=== PATIENT | female | born 1970 | race American Indian/Alaskan Native ===

== ENCOUNTER 2020-07-27 13:30 | Emergency (ER) | payer OTHER ==
[2020-07-27 13:46] VITALS: BP 107/65
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
== END 2020-07-27 16:26 | disposition home or self-care (01) ==
LOC: ED 13:30
DX: S16.1XXA Strain of muscle, fascia and tendon at neck level, initial encounter (principal); S29.012A Strain of muscle and tendon of back wall of thorax, initial encounter; S09.90XA Unspecified injury of head, initial encounter; F17.200 Nicotine dependence, unspecified, uncomplicated; Z98.890 Other specified postprocedural states; Z79.899 Other long term (current) drug therapy; V49.49XA Driver injured in collision with other motor vehicles in traffic accident, initial encounter; Y93.89 Activity, other specified; Y92.410 Unspecified street and highway as the place of occurrence of the external cause; Y99.8 Other external cause status
CPT/HCPCS: 99282

== ENCOUNTER 2020-10-14 23:46 | Emergency (ER) | payer OTHER ==
[2020-10-15] MEDS ORDERED: ASPIRIN 325 MG TAB PO ONE (00:08)
--- NOTE | 2020-10-15 00:19 | Event Note ---
ED Screening Note Date of service: 10/15/20 Time: 00:09 ED Screening Note: Patient is a 49 yo AA female with a h/o cervical cancer and lung cancer s/p partial lobectomy in 2019 and who continues to smoke cigarettes presents to the ED with c/o acute onset persistent anterior chest pain and dyspnea, worse with exertion for the last "couple of days". Patient states that her symptoms got worse in the last 24 hours with exertion, and describes the chest pain a "sharp and stabbing" intermittently. Patient denies dizziness, fever, chills, cough, abdominal pain, nausea, vomiting, headache, back pain, palpitations, diaphoresis, syncope and neck pain. This initial assessment/diagnostic orders/clinical plan/treatment(s) is/are subject to change based on patients health status, clinical progression and re- assessment by fellow clinical providers in the ED. Further treatment and workup at subsequent clinical providers discretion. Patient/guardian urged not to elope from the ED as their condition may be serious if not clinically assessed and managed. Initial orders include: CBC, CMP, CXR, EKG, BNP, PTT/PT/INR, ASA
--- NOTE | 2020-10-15 00:40 | XRay Report ---
CHEST 1 VIEW 10/14/2020 11:27 PM INDICATION / CLINICAL INFORMATION: Chest pain. Shortness of breath. COMPARISON: 03/22/15. FINDINGS: SUPPORT DEVICES: There is a right jugular Port-A-Cath with the tip overlying the distal SVC. HEART / MEDIASTINUM: The heart size and pulmonary vasculature are normal. The aorta is normal in natasha ernie. There is soft tissue prominence in the right paratracheal/azygous vein region, new since the bora or exam. LUNGS / PLEURA: There is minimal subsegmental atelectasis/scarring in the right lower lung. No pleura l effusion. No pneumothorax. ADDITIONAL FINDINGS: No significant additional findings. IMPRESSION: 1. New right paratracheal/azygous vein soft tissue prominence. Nonemergent CT of the chest with intra venous contrast may be helpful in further evaluation. 2. No acute pulmonary disease. Signer Name: Landen Abel MD Signed: 10/15/2020 12:35 AM Workstation Name: [id number]
[2020-10-15 00:52] LABS: Basophils % (Auto) 0.9 % (0.0-1.8); Eosinophils # (Auto) 0.1 K/mm3 (0.0-0.4); Eosinophils % (Auto) 1.8 % (0.0-4.3); Hematocrit 32.7 % (30.3-42.9); Hemoglobin 11.1 gm/dl (10.1-14.3); Lymphocytes # (Auto) 2.5 K/mm3 (1.2-5.4); Lymphocytes % (Auto) 45.2 % (13.4-35.0); Mean Corpuscular HGB Conc 34 % (30-34); Mean Corpuscular Volume 103 fl (79-97); Monocytes # (Auto) 0.3 K/mm3 (0.0-0.8); Monocytes % (Auto) 6.1 % (0.0-7.3); Platelet Count 300 K/mm3 (140-440); Red Blood Count 3.17 M/mm3 (3.65-5.03); Red Cell Distribution Width 13.9 % (13.2-15.2)
[2020-10-15 01:09] LABS: INR 0.98 (0.87-1.13); Partial Thromboplastin Time 28.8 Sec. (24.2-36.6)
[2020-10-15 01:16] LABS: Alanine Aminotransferase 10 units/L (7-56); Albumin 4.2 g/dL (3.9-5); BUN/Creatinine Ratio 5; Blood Urea Nitrogen 3 mg/dL (7-17); Calcium 9.3 mg/dL (8.4-10.2); Hemolysis Index 3
[2020-10-15 08:38] VITALS: BP 122/92
[2020-10-15] MEDS ORDERED: ALUM-MAG HYDROXIDE-SIMETHICONE 200-200-20MG/5ML ORAL LIQD 30 ML PO ONE (10:11)
--- NOTE | 2020-10-15 10:17 | Emergency Department Report ---
ED Chest Pain HPI - General Chief Complaint: Chest Pain Stated Complaint: CHEST PAIN/SOB Time Seen by Provider: 10/15/20 10:10 Source: patient Mode of arrival: Ambulatory Limitations: No Limitations - History of Present Illness Initial Comments: This is a 49-year-old female reports to the emergency room complaining of midsternal chest pain radiating under her right breast x3 days. She denies coughing no shortness of breath no fever no chills, no leg swelling no recent travels no recent surgical procedures. Her past medical history is of cervical cancer and lung cancer diagnosed and treated in 2019 status post chemo radiation and lobectomy. She is a current cigarette smoker patient is in no acute distress MD Complaint: chest pain -: days(s) (3) Pain Location: other (Midsternal chest pain radiating under her right breast) Severity scale (0 -10): 7 Quality: sharp Consistency: intermittent Improves With: other (Luisa anthony) Worsens With: nothing re: denies: nausea, vomting, diaphoresis, dyspnea, sense of impending doom Other Symptoms: denies: cough, fever, syncope Treatments Prior to Arrival: none - Related Data Previous Rx's Medication Instructions Recorded Last Taken Type Ketorolac [Toradol] 10 mg PO Q6H PRN #20 tablet 07/27/20 Unknown Rx methOCARBAMOL [Robaxin TAB] 750 mg PO Q8H PRN #30 tablet 07/27/20 Unknown Rx Allergies Allergy/AdvReac Type Severity Reaction Status Date / Time No Known Allergies Allergy Verified 07/27/20 13:43 Heart Score - HEART Score History: Slightly suspicious EKG: Normal Age: 45-65 Risk factors: No known risk factors Troponin: 1-3x normal limit HEART Score: 2 - EKG Read Time Time EKG Completed: 00:10 EKG Read Time: 00:15 ED Review of Systems ROS: Stated complaint: CHEST PAIN/SOB Other details as noted in HPI Comment: All other systems reviewed and negative Constitutional: denies: chills, fever, weakness ENT: denies: ear pain, throat pain, dental pain Respiratory: denies: cough, shortness of breath, SOB with exertion, wheezing Cardiovascular: chest pain. denies: palpitations, dyspnea on exertion, orthopnea, edema, syncope, paroxysmal nocturnal dyspnea Endocrine: no symptoms reported Gastrointestinal: denies: abdominal pain, nausea, vomiting, diarrhea, con stipation, hematemesis Genitourinary: denies: dysuria, hematuria Musculoskeletal: denies: back pain, joint swelling, arthralgia Skin: denies: rash Neurological: denies: headache, weakness, numbness, paresthesias, confusion Psychiatric: denies: anxiety, depression Hematological/Lymphatic: denies: easy bleeding, easy bruising ED Past Medical Hx - Past Medical History Hx of Cancer: Yes (cervical and RML lung) - Surgical History Additional Surgical History: tubal, right lower lobectomy, hysterectomy - Social History Smoking Status: Current Every Day Smoker Substance Use Type: Alcohol - Medications Home Medications: Home Medications Medication Instructions Recorded Confirmed Last Taken Type Ketorolac [Toradol] 10 mg PO Q6H PRN #20 tablet 07/27/20 Unknown Rx methOCARBAMOL [Robaxin TAB] 750 mg PO Q8H PRN #30 tablet 07/27/20 Unknown Rx ED Physical Exam - General Limitations: No Limitations General appearance: alert, in no apparent distress - Head Head exam: Present: atraumatic - Eye Eye exam: Present: normal appearance - ENT ENT exam: Present: normal exam - Neck Neck exam: Present: normal inspection - Respiratory Respiratory exam: Present: decreased breath sounds (At the bases bilaterally). Absent: respiratory distress, wheezes, rales, rhonchi - Cardiovascular Cardiovascular Exam: Present: regular rate, normal heart sounds - GI/Abdominal GI/Abdominal exam: Present: soft - Extremities Exam Extremities exam: Present: normal inspection - Back Exam Back exam: Present: normal inspection - Neurological Exam Neurological exam: Present: alert, oriented X3 - Psychiatric Psychiatric exam: Present: normal affect - Skin Skin exam: Present: warm, dry, intact ED Course Vital Signs 10/15/20 10/15/20 00:02 08:37 Temperature 98.0 F 98.2 F Pulse Rate 107 H 100 H Respiratory 18 20 Rate Blood Pressure 105/80 122/92 [Left] O2 Sat by Pulse 99 100 Oximetry - Reevaluation(s) Reevaluation #1: 10/15/20 10:19 At 10 AM I examined patient she is in no acute distress she states that the midsternal pain that she has feels like gas pain. She reports her pain is has decreased but is now a 7/10. She denies any shortness of breath. All findings discussed with the patient. Patient continues to smoke cigarette and has just returned from outside where she was smoking 10/15/20 10:20 DONALD score - Donald Score Age > 65: (0) No Aspirin use within the Past 7 Days: (0) No 3 or more CAD Risk Factors: (0) No 2 or more Angina events in past 24 hrs: (0) No Known CAD with more than 50% Stenosis: (0) No Elevated Cardiac Markers: (0) No ST Deviation Greater than 0.5mm: (0) No DONALD Score: 0 ED Medical Decision Making - Lab Data Result diagrams: 10/15/20 00:16 10/15/20 00:16 - EKG Data Rate: normal, tachycardia (102 probable left atrial enlargement) - EKG Data Interpretation: no acute changes - Radiology Data Radiology results: report reviewed CHEST 1 VIEW 10/14/2020 11:27 PM INDICATION / CLINICAL INFORMATION: Chest pain. Shortness of breath. COMPARISON: 03/22/15. FINDINGS: SUPPORT DEVICES: There is a right jugular Port-A-Cath with the tip overlying the distal SVC. HEART / MEDIASTINUM: The heart size and pulmonary vasculature are normal. The aorta is normal in caliber. There is soft tissue prominence in the right paratracheal/azygous vein region, new since the prior exam. LUNGS / PLEURA: There is minimal subsegmental atelectasis/scarring in the right lower lung. No pleural effusion. No pneumothorax. ADDITIONAL FINDINGS: No significant additional findings. IMPRESSION: 1. New right paratracheal/azygous vein soft tissue prominence. Nonemergent CT of the chest with intravenous contrast may be helpful in further evaluation. 2. No acute pulmonary disease. - Medical Decision Making 49 yo female presents to ER with 3 day complaint of midsternal chest pain radiating under the right chest. She denies SOB, fever chills. Low suspicion for PE no recent long distance travels, no unilateral swelling, no recent surgical procedures or lengthy immobilization. Chest x-ray with no acute findings. Troponin x2 is negative . she has hx of cervical and lung cancer treated 3 years ago. Heart score of 2 per hospital policy chest pain referral form faxed to [facility] . Pt is well appearing in no distress. All findings reviewed with Dr. Quigley. Dr Quigley reviewed chart. He agrees with plan to discharge home no further imaging needed and to refer pt to [facility]. - Differential Diagnosis Chest pain, Critical care attestation.: If time is entered above; I have spent that time in minutes in the direct care of this critically ill patient, excluding procedure time. ED Disposition Clinical Impression: Atypical chest pain Disposition: DC-01 TO HOME OR SELFCARE Is pt being admited?: No Does the pt Need Aspirin: No Condition: Stable Instructions: Nonspecific Chest Pain, Adult Additional Instructions: Follow-up with your doctor in 3 to 5 days. Return to the emergency room for any worsening chest pain shortness of breath cough fever Referrals: PRIMARY CARE, [Primary Care Provider] - 3-5 Days Forms: Work/School Release Form(ED) Time of Disposition: 10:22
--- NOTE | 2020-10-17 10:31 | Electrocardiograph Report ---
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
== END 2020-10-15 10:36 | disposition home or self-care (01) ==
LOC: ED 23:46
DX: R07.89 Other chest pain (principal); F17.200 Nicotine dependence, unspecified, uncomplicated; Z90.710 Acquired absence of both cervix and uterus; Z79.899 Other long term (current) drug therapy
CPT/HCPCS: 36415; 71045; 80053; 83880; 84484; 85025; 85610; 85730; 93005; 99283

== ENCOUNTER 2021-01-15 01:37 | Inpatient (IN) | payer OTHER ==
[2021-01-15] MEDS ORDERED: SODIUM CHLORIDE 0.9% 1000 ML 1,000 ML IV ONE (02:23)
[2021-01-15 02:53] LABS: Basophils % (Auto) 0.5 % (0.0-1.8); Eosinophils % (Auto) 0.2 % (0.0-4.3); Hematocrit 35.4 % (30.3-42.9); Hemoglobin 12.1 gm/dl (10.1-14.3); Lymphocytes # (Auto) 1.4 K/mm3 (1.2-5.4); Lymphocytes % (Auto) 27.3 % (13.4-35.0); Mean Corpuscular HGB Conc 34 % (30-34); Mean Corpuscular Volume 95 fl (79-97); Monocytes # (Auto) 0.4 K/mm3 (0.0-0.8); Monocytes % (Auto) 7.1 % (0.0-7.3); Platelet Count 232 K/mm3 (140-440); Red Blood Count 3.73 M/mm3 (3.65-5.03); Red Cell Distribution Width 13.2 % (13.2-15.2)
[2021-01-15 03:02] LABS: INR 1.26 (0.87-1.13); Partial Thromboplastin Time 26.4 Sec. (24.2-36.6)
[2021-01-15 03:10] LABS: Alanine Aminotransferase 42 units/L (7-56); Albumin 3.9 g/dL (3.9-5); Bilirubin,Direct 0.6 mg/dL (0-0.2); Blood Urea Nitrogen 11 mg/dL (7-17); Calcium 9.2 mg/dL (8.4-10.2); Hemolysis Index 1
[2021-01-15] MEDS ORDERED: MAGNESIUM SULFATE 2 GM/50 ML BAG IV ONE ×2 (03:19)
--- NOTE | 2021-01-15 03:30 | Emergency Department Report ---
HPI - General Chief Complaint: Nausea/Vomiting/Diarrhea Time Seen by Provider: 01/15/21 02:21 - HPI HPI: 50-year-old female with history of cervical and lung cancer in the past currently in remission is brought in by EMS complaining of worsening generalized weakness over the past week and persistent nausea/vomiting for the past 2 months. According to the EMS report, the patient's blood pressure was initially in the 90s over 70s and the patient was noted to be tachycardic in the 110s. She was given an IV fluid bolus with improvement in her blood pressure. The patient states that she has been having approximately 4-5 episodes of vomiting per day for the past 2 months. She states she has been taking Zofran but it is no longer working for her. In addition, she has been experiencing worsening abdominal pain mainly centered in the epigastrium. he is constipated and does not remember the last time she had a bowel movement. Although she has felt tired and weak the entire time, over the last week the generalized weakness got much worse to the point where she was barely able to perform simple activities. Because of this her family called 911 today. She denies any fever/chills, headache, vision change, neck pain, back pain, chest pain, shortness of breath, focal weakness, sensory changes, vertigo, dysuria, hematemesis, cough, or any other complaints. She is not vaccinated against COVID-19. ED Past Medical Hx - Past Medical History Previous Medical History?: Yes Additional medical history: Cervical and Lung cancer in remission - Surgical History Additional Surgical History: tubal, right lower lobectomy, hysterectomy - Social History Smoking Status: Unknown if ever smoked - Medications Home Medications: Home Medications Medication Instructions Recorded Confirmed Last Taken Type Ketorolac [Toradol] 10 mg PO Q6H PRN #20 tablet 07/27/20 01/15/21 Unknown Rx methOCARBAMOL [Robaxin TAB] 750 mg PO Q8H PRN #30 tablet 07/27/20 01/15/21 Unknown Rx ED Review of Systems ROS: Stated complaint: NAUSEA,VOMITING,HYPOTENTION Other details as noted in HPI Constitutional: weakness. denies: chills, fever Eyes: denies: eye pain, vision change ENT: denies: throat pain, congestion Respiratory: denies: cough, shortness of breath Cardiovascular: denies: chest pain, palpitations, edema, syncope Gastrointestinal: abdominal pain, nausea, vomiting, constipation. denies: diarrhea Genitourinary: denies: dysuria, frequency Musculoskeletal: denies: back pain, myalgia Skin: denies: rash, pruritus Neurological: denies: headache, weakness, numbness, confusion Hematological/Lymphatic: denies: easy bleeding Physical Exam - Physical Exam Vital Signs: Vital Signs 01/15/21 01:50 Temperature 98.4 F Pulse Rate 104 H Respiratory 18 Rate Blood Pressure 98/67 O2 Sat by Pulse 99 Oximetry Physical Exam: GENERAL: Frail appearing female who appears older than stated age. In no acute distress HEAD: Normocephalic. No obvious signs of trauma. ENT: Dry mucous membranes. EYES: Extraocular movements are intact. Pupils are equal round and reactive to light bilaterally NECK: Supple. Full ROM is intact. Trachea is midline. LUNGS: Nonlabored breathing. Equal chest rise bilaterally. Coarse breath sounds with scattered rhonchi but no rales or wheezes. CARDIOVASCULAR: Tachycardic but with regular rhythm. No murmurs or rubs. VASCULAR: 2+ peripheral pulses. Trace edema ABDOMEN: Abdomen is soft and nondistended. There is diffuse abdominal tenderness most significantly in the epigastrium with voluntary guarding but no rebound. SKIN: Skin is warm and dry NEURO: Patient is awake, alert, and oriented. polygraph technician II-XII grossly intact. No focal deficits. Normal motor and sensory exam throughout. Normal speech. MUSCULOSKELETAL: No obvious deformities. No significant tenderness. Normal ROM throughout. BACK/SPINE: No midline tenderness or step-offs of the C/T/L spine. Bilateral CVA tenderness ED Course Vital Signs 01/15/21 01:50 Temperature 98.4 F Pulse Rate 104 H Respiratory 18 Rate Blood Pressure 98/67 O2 Sat by Pulse 99 Oximetry ED Medical Decision Making - Lab Data Result diagrams: 01/16/21 02:12 01/16/21 02:12 Lab Results 01/15/21 01/15/21 01/15/21 Range/Units 02:32 02:32 02:32 WBC 5.1 (4.5-11.0) K/mm3 RBC 3.73 (3.65-5.03) M/mm3 Hgb 12.1 (10.1-14.3) gm/dl Hct 35.4 (30.3-42.9) % MCV 95 (79-97) fl MCH 32 (28-32) pg MCHC 34 (30-34) % RDW 13.2 (13.2-15.2) % Plt Count 232 (140-440) K/mm3 Lymph % (Auto) 27.3 (13.4-35.0) % Coleman % (Auto) 7.1 (0.0-7.3) % Eos % (Auto) 0.2 (0.0-4.3) % Baso % (Auto) 0.5 (0.0-1.8) % Lymph # (Auto) 1.4 (1.2-5.4) K/mm3 Coleman # (Auto) 0.4 (0.0-0.8) K/mm3 Eos # (Auto) 0.0 (0.0-0.4) K/mm3 Baso # (Auto) 0.0 (0.0-0.1) K/mm3 Seg Neutrophils % 64.9 (40.0-70.0) % Seg Neutrophils # 3.3 (1.8-7.7) K/mm3 PT 16.4 H (12.2-14.9) Sec. INR 1.26 H (0.87-1.13) APTT 26.4 (24.2-36.6) Sec. D-Dimer (0-234) ng/mlDDU Sodium 132 L (137-145) mmol/L Potassium 2.3 L* (3.6-5.0) mmol/L Chloride 85.5 L (98-107) mmol/L Carbon Dioxide 31 H (22-30) mmol/L Anion Gap 18 mmol/L BUN 11 (7-17) mg/dL Creatinine 0.5 L (0.6-1.2) mg/dL Estimated GFR > 60 ml/min BUN/Creatinine Ratio 22 % Glucose 132 H (65-100) mg/dL Lactic Acid (0.7-2.0) mmol/L Calcium 9.2 (8.4-10.2) mg/dL Phosphorus (2.5-4.5) mg/dL Magnesium (1.7-2.3) mg/dL Ferritin (10.0-200.0) ng/mL Total Bilirubin 1.90 H (0.1-1.2) mg/dL Direct Bilirubin 0.6 H (0-0.2) mg/dL Indirect Bilirubin 1.3 mg/dL AST 26 (5-40) units/L ALT 42 (7-56) units/L Alkaline Phosphatase 80 (35-129) units/L Lactate Dehydrogenase (91-180) units/L Troponin T (0.00-0.029) ng/mL C-Reactive Protein (0.00-1.30) mg/dL Total Protein 6.9 (6.3-8.2) g/dL Albumin 3.9 (3.9-5) g/dL Albumin/Globulin Ratio 1.3 % Lipase 66 H (13-60) units/L 01/15/21 01/15/21 01/15/21 Range/Units 02:32 02:32 02:32 WBC (4.5-11.0) K/mm3 RBC (3.65-5.03) M/mm3 Hgb (10.1-14.3) gm/dl Hct (30.3-42.9) % MCV (79-97) fl MCH (28-32) pg MCHC (30-34) % RDW (13.2-15.2) % Plt Count (140-440) K/mm3 Lymph % (Auto) (13.4-35.0) % Coleman % (Auto) (0.0-7.3) % Eos % (Auto) (0.0-4.3) % Baso % (Auto) (0.0-1.8) % Lymph # (Auto) (1.2-5.4) K/mm3 Coleman # (Auto) (0.0-0.8) K/mm3 Eos # (Auto) (0.0-0.4) K/mm3 Baso # (Auto) (0.0-0.1) K/mm3 Seg Neutrophils % (40.0-70.0) % Seg Neutrophils # (1.8-7.7) K/mm3 PT (12.2-14.9) Sec. INR (0.87-1.13) APTT (24.2-36.6) Sec. D-Dimer (0-234) ng/mlDDU Sodium (137-145) mmol/L Potassium (3.6-5.0) mmol/L Chloride (98-107) mmol/L Carbon Dioxide (22-30) mmol/L Anion Gap mmol/L BUN (7-17) mg/dL Creatinine (0.6-1.2) mg/dL Estimated GFR ml/min BUN/Creatinine Ratio % Glucose (65-100) mg/dL Lactic Acid 1.80 (0.7-2.0) mmol/L Calcium (8.4-10.2) mg/dL Phosphorus 2.30 L (2.5-4.5) mg/dL Magnesium 1.80 (1.7-2.3) mg/dL Ferritin (10.0-200.0) ng/mL Total Bilirubin (0.1-1.2) mg/dL Direct Bilirubin (0-0.2) mg/dL Indirect Bilirubin mg/dL AST (5-40) units/L ALT (7-56) units/L Alkaline Phosphatase (35-129) units/L Lactate Dehydrogenase (91-180) units/L Troponin T < 0.010 (0.00-0.029) ng/mL C-Reactive Protein (0.00-1.30) mg/dL Total Protein (6.3-8.2) g/dL Albumin (3.9-5) g/dL Albumin/Globulin Ratio % Lipase (13-60) units/L 01/15/21 01/15/21 01/15/21 Range/Units 04:51 04:51 04:51 WBC (4.5-11.0) K/mm3 RBC (3.65-5.03) M/mm3 Hgb (10.1-14.3) gm/dl Hct (30.3-42.9) % MCV (79-97) fl MCH (28-32) pg MCHC (30-34) % RDW (13.2-15.2) % Plt Count (140-440) K/mm3 Lymph % (Auto) (13.4-35.0) % Coleman % (Auto) (0.0-7.3) % Eos % (Auto) (0.0-4.3) % Baso % (Auto) (0.0-1.8) % Lymph # (Auto) (1.2-5.4) K/mm3 Coleman # (Auto) (0.0-0.8) K/mm3 Eos # (Auto) (0.0-0.4) K/mm3 Baso # (Auto) (0.0-0.1) K/mm3 Seg Neutrophils % (40.0-70.0) % Seg Neutrophils # (1.8-7.7) K/mm3 PT (12.2-14.9) Sec. INR (0.87-1.13) APTT (24.2-36.6) Sec. D-Dimer 1101.34 H (0-234) ng/mlDDU Sodium 129 L (137-145) mmol/L Potassium 2.6 L* (3.6-5.0) mmol/L Chloride 88.7 L (98-107) mmol/L Carbon Dioxide 27 (22-30) mmol/L Anion Gap 16 mmol/L BUN 9 (7-17) mg/dL Creatinine 0.5 L (0.6-1.2) mg/dL Estimated GFR > 60 ml/min BUN/Creatinine Ratio 18 % Glucose 100 98 (65-100) mg/dL Lactic Acid (0.7-2.0) mmol/L Calcium 7.8 L D (8.4-10.2) mg/dL Phosphorus (2.5-4.5) mg/dL Magnesium (1.7-2.3) mg/dL Ferritin (10.0-200.0) ng/mL Total Bilirubin 1.50 H (0.1-1.2) mg/dL Direct Bilirubin (0-0.2) mg/dL Indirect Bilirubin mg/dL AST 20 (5-40) units/L ALT 36 (7-56) units/L Alkaline Phosphatase 69 (35-129) units/L Lactate Dehydrogenase 141 (91-180) units/L Troponin T (0.00-0.029) ng/mL C-Reactive Protein 0.30 (0.00-1.30) mg/dL Total Protein 5.9 L (6.3-8.2) g/dL Albumin 3.1 L (3.9-5) g/dL Albumin/Globulin Ratio 1.1 % Lipase (13-60) units/L 07/25/ Range/Units 04:51 WBC (4.5-11.0) K/mm3 RBC (3.65-5.03) M/mm3 Hgb (10.1-14.3) gm/dl Hct (30.3-42.9) % MCV (79-97) fl MCH (28-32) pg MCHC (30-34) % RDW (13.2-15.2) % Plt Count (140-440) K/mm3 Lymph % (Auto) (13.4-35.0) % Coleman % (Auto) (0.0-7.3) % Eos % (Auto) (0.0-4.3) % Baso % (Auto) (0.0-1.8) % Lymph # (Auto) (1.2-5.4) K/mm3 Coleman # (Auto) (0.0-0.8) K/mm3 Eos # (Auto) (0.0-0.4) K/mm3 Baso # (Auto) (0.0-0.1) K/mm3 Seg Neutrophils % (40.0-70.0) % Seg Neutrophils # (1.8-7.7) K/mm3 PT (12.2-14.9) Sec. INR (0.87-1.13) APTT (24.2-36.6) Sec. D-Dimer (0-234) ng/mlDDU Sodium (137-145) mmol/L Potassium (3.6-5.0) mmol/L Chloride (98-107) mmol/L Carbon Dioxide (22-30) mmol/L Anion Gap mmol/L BUN (7-17) mg/dL Creatinine (0.6-1.2) mg/dL Estimated GFR ml/min BUN/Creatinine Ratio % Glucose (65-100) mg/dL Lactic Acid (0.7-2.0) mmol/L Calcium (8.4-10.2) mg/dL Phosphorus (2.5-4.5) mg/dL Magnesium (1.7-2.3) mg/dL Ferritin 630.5 H (10.0-200.0) ng/mL Total Bilirubin (0.1-1.2) mg/dL Direct Bilirubin (0-0.2) mg/dL Indirect Bilirubin mg/dL AST (5-40) units/L ALT (7-56) units/L Alkaline Phosphatase (35-129) units/L Lactate Dehydrogenase (91-180) units/L Troponin T (0.00-0.029) ng/mL C-Reactive Protein (0.00-1.30) mg/dL Total Protein (6.3-8.2) g/dL Albumin (3.9-5) g/dL Albumin/Globulin Ratio % Lipase (13-60) units/L - EKG Data -: EKG Interpreted by Ok - EKG Data 01/15/21 05:02 EKG #1 obtained at 3:00 AM: Sinus tachycardia. Normal axis. Prolonged QT interval with QTC of 518. Otherwise normal intervals. No ectopy. Nonspecific T wave inversions. Septal Q waves. No significant ST segment abnormalities. EKG #2 obtained at 4:57 AM: Normal sinus rhythm. Normal axis. Prolonged QT interval with QTC of 536. Otherwise normal intervals. No ectopy. Nonspecific T wave inversions. Septal Q waves. No significant ST segment abnormalities. 01/15/21 05:07 - Radiology Data CHEST 1 VIEW 01/15/2021 4:42 AM INDICATION / CLINICAL INFORMATION: weakness. COMPARISON: One view of the chest from 10/15/2020 FINDINGS: SUPPORT DEVICES: A right internal jugular vein Port-A-Cath terminates over the cavoatrial junction. HEART / MEDIASTINUM: No significant abnormality. LUNGS / PLEURA: There is a right upper lobe mass measuring 5.1 x 4.8 cm. Otherwise clear lungs. No significant pleural effusion. No pneumothorax. ADDITIONAL FINDINGS: No significant additional findings. IMPRESSION: 1. No acute abnormality of the chest. 2. Additional findings as above. Signer Name: Duran Garduno MD Signed: 01/15/2021 4:48 AM Workstation Name: [id number] ULTRASOUND ABDOMEN, LIMITED (RIGHT UPPER QUADRANT) INDICATION: RUQ+ epigastric tenderness. COMPARISON: None available. FINDINGS: Pancreas: Visualized portion shows no significant abnormality. Liver: No significant abnormality. Gallbladder: Numerous stones are present resulting in a wall echo shadow complex, limiting evaluation of the gallbladder. Sonographic Velazquez's sign: Not performed. Bile ducts: No significant abnormality. Common Bile Duct measures 1.1 mm. Free fluid: None. Additional Findings: None. IMPRESSION: Cholelithiasis without sonographic evidence of acute cholecystitis. Signer Name: Duran Garduno MD Signed: 01/15/2021 3:37 AM Workstation Name: [id number] CT ABDOMEN AND PELVIS WITH CONTRAST INDICATION / CLINICAL INFORMATION: Bilateral upper abdominal tenderness. TECHNIQUE: Axial CT images were obtained through the abdomen and pelvis after 100 cc Omnipaque [address] scans at this location are performed using CT dose reduction for ALARA by means of automated exposure control. COMPARISON: None available. FINDINGS: LOWER CHEST: No significant abnormality. LIVER: Focal fatty infiltration is seen along the falciform ligament. No other significant abnormalities. GALLBLADDER: There is cholelithiasis without evidence of acute cholecystitis. BILE DUCTS: No significant abnormality. PANCREAS: No significant abnormality. SPLEEN: No significant abnormality. ADRENALS: No significant abnormality. RIGHT KIDNEY / URETER: No significant abnormality. LEFT KIDNEY / URETER: No significant abnormality. STOMACH / SMALL BOWEL: No significant abnormality. COLON: No significant abnormality. APPENDIX: No significant abnormality. PERITONEUM: No free fluid. No free air. No fluid collection. LYMPH NODES: No significant adenopathy. AORTA / ARTERIES: The aorta is normal in caliber with mild atherosclerosis. No other significant abnormalities. IVC / VEINS: No significant abnormality. URINARY BLADDER: No significant abnormality. REPRODUCTIVE ORGANS: Uterus is absent. No significant adnexal abnormality. ADDITIONAL FINDINGS: No ne. SKELETAL SYSTEM: No significant abnormality. IMPRESSION: 1. No acute findings. 2. Cholelithiasis without evidence of acute cholecystitis. Signer Name: Duran Garduno MD Signed: 01/15/2021 4:03 AM Workstation Name: [id number] - Medical Decision Making 50-year-old female with history of cervical and lung cancer in remission presenting with 2 months of nausea/vomiting and now with approximately a week of worsening generalized weakness and hypotension first noted today. The patient has been taking Zofran but this has not provided significant relief and she has continued to vomit. Although her initial blood pressure was in the 90s over 70s for EMS, her blood pressure upon arrival is in the 100s over 60s. She remains tachycardic in the 110s. On physical examination, she has very dry mucous membranes and diffuse abdominal tenderness with voluntary guarding but no rebound. She also has bilateral CVA tenderness. She is A&O x4. She has a nonfocal neurologic exam. Lung auscultation reveals coarse breath sounds with scattered rhonchi without any appreciated rales. We will perform very broad work-up with a full set of labs, EKG, chest x-ray, blood/urine cultures, lactate, right upper quadrant ultrasound to assess for evidence of cholelithiasis/cholecystitis, and CT of the abdomen pelvis to assess for evidence of colitis, mass, obstruction, infection, or other intra-abdominal catastrophe. We will give 1 L of IV fluids and monitor very closely.\ At 3:10 AM, the patient's EKG reveals a prolonged QT interval with a QTC of 518. I suspect that this is related to her ongoing and frequent use of Zofran as well as electrolyte abnormalities. Her labs are still pending but will give 2 g of magnesium sulfate and repeat her EKG to assess for changes to her QTC. At 4:05 AM, the patient's labs have resulted and reveal a critically low potassium of 2.3. She has no significant leukocytosis or anemia. Sodium is 132, bicarb is 31, creatinine is 0.5 and BUN is 11. Lactate is within normal limits. Magnesium is normal at 1.8. T bili is slightly elevated at 1.9 with T bili of 0.6. Lipase is slightly elevated at 66. Lactate is within normal li mits. We will give 40 mEq of oral potassium and 40 mEq of IV potassium over 4 hours. The patient will be kept on a senior java developer at all times. Will avoid antiemetics or any other QT prolonging agents at this time. On repeat assessment at 4:28 AM, the patient reports that she feels slightly bet ter after receiving IV fluids. Her blood pressure has stabilized, but she remains tachycardic in the 100s to 110s. Given her persistent tachycardia despite IV fluids, I will order the COVID-19 order set which includes a D-dimer and add on a CTA of the chest to be completed with her CT of the abdomen. We will order an additional 1 L of LR After ordering the CTA of the chest, the radiology director informed me that he had just completed the patient's contrasted CT of the abdomen when this order was placed and therefore CT angiogram cannot be performed at this time. Right upper quadrant ultrasound reveals cholelithiasis without evidence of cholecystitis. Repeat EKG at 4:57 AM reveals no changes but with persistent QT prolongation and QTC of 530. We will consult cardiology for further recommendations. CT of the abdomen and pelvis reveals no acute abnormalities. There is evidence of cholelithiasis without evidence of cholecystitis. D-dimer is elevated at 1100. However, given that the patient has already received a contrasted study of the abdomen, she cannot receive a CTA of the chest at this time. On repeat assessment again at 5:30 AM, the patient's heart rate has improved slightly to the high 90s/low 100s. I explained to the patient that she has several electrolyte abnormalities and EKG changes which require admission to the hospital for further work-up and management. She expressed understanding and agreement with this plan of care. At 5:41 AM I spoke with Dr. Tafoya of cardiology regarding the case. He agrees with my management with magnesium, potassium repletion, and recommends avoidance of any QT prolonging agents and says that he will give further inpatient recommendations. At 6 AM I spoke with Dr. Deleon, the on-call hospitalist regarding the case. He accepts the patient for admission and will assume care. He understands that urinalysis/urine culture are still pending and that D-dimer is elevated but we are unable to perform CTA of the chest at this time. Shortly after speaking to the hospitalist, I reviewed the patient's chest x-ray, and although the impression says that there are no acute abnormalities, I now see that there is a finding of a right upper lobe mass of approximately 5.1 x 4.8 cm. Unclear whether this represents a new mass or the patient's prior lung cancer. I spoke to the hospitalist and updated him about this finding and he says he will follow it up. Critical Care Time: Yes Critical care time in (mins) excluding proc time.: 90 Critical care attestation.: If time is entered above; I have spent that time in minutes in the direct care of this critically ill patient, excluding procedure time. Critical care time was spent in the evaluation, assessment, work-up, and management of critical hypokalemia and prolonged QTC requiring IV magnesium and IV potassium as well as hypotension requiring IV fluids, interpretation of EKGs, consultation with specialist, and multiple reassessments and reevaluations. ED Disposition Clinical Impression: Generalized weakness, Hypokalemia, Prolonged Q-T interval on ECG, Dehydration, Mass of upper lobe of right lung, Failure to thrive in adult Nausea and vomiting Qualifiers: Vomiting Intractability: unspecified Hypotension Qualifiers: Hypotension type: unspecified hypotension type Qualified Code(s): I95.9 - Hypotension, unspecified Disposition: DC-09 OP ADMIT IP TO THIS HOSP Is pt being admited?: Yes Condition: Serious
[2021-01-15 03:37] LABS: BUN/Creatinine Ratio 22
[2021-01-15] MEDS ORDERED: POTASSIUM CHLORIDE ER 20 MEQ TAB PO ONE (04:03)
[2021-01-15] MEDS ORDERED: LACTATED RINGERS 1,000 ML IV ONE (04:32)
--- NOTE | 2021-01-15 04:41 | Ultrasound Report ---
ULTRASOUND ABDOMEN, LIMITED (RIGHT UPPER QUADRANT) INDICATION: RUQ+ epigastric tenderness. COMPARISON: None available. FINDINGS: Pancreas: Visualized portion shows no significant abnormality. Liver: No significant abnormality. Gallbladder: Numerous stones are present resulting in a wall echo shadow complex, limiting evaluation of the gallbladder. Sonographic Velazquez's sign: Not performed. Bile ducts: No significant abnormality. Common Bile Duct measures 1.1 mm. Free fluid: None. Additional Findings: None. IMPRESSION: Cholelithiasis without sonographic evidence of acute cholecystitis. Signer Name: Duran Garduno MD Signed: 01/15/2021 4:37 AM Workstation Name: [id number]
[2021-01-15] MEDS: POTASSIUM CHLORIDE 10 MEQ 10 MEQ/100 ML BAG IV SCH ×4 (05:07→13:10)
--- NOTE | 2021-01-15 05:08 | Cat Scan Report ---
CT ABDOMEN AND PELVIS WITH CONTRAST INDICATION / CLINICAL INFORMATION: Bilateral upper abdominal tenderness. TECHNIQUE: Axial CT images were obtained through the abdomen and pelvis after 100 cc Omnipaque [address] scans at this location are performed using CT dose reduction for ALARA by means of automated exposure control. COMPARISON: None available. FINDINGS: LOWER CHEST: No significant abnormality. LIVER: Focal fatty infiltration is seen along the falciform ligament. No other significant abnormalit ies. GALLBLADDER: There is cholelithiasis without evidence of acute cholecystitis. BILE DUCTS: No significant abnormality. PANCREAS: No significant abnormality. SPLEEN: No significant abnormality. ADRENALS: No significant abnormality. RIGHT KIDNEY / URETER: No significant abnormality. LEFT KIDNEY / URETER: No significant abnormality. STOMACH / SMALL BOWEL: No significant abnormality. COLON: No significant abnormality. APPENDIX: No significant abnormality. PERITONEUM: No free fluid. No free air. No fluid collection. LYMPH NODES: No significant adenopathy. AORTA / ARTERIES: The aorta is normal in caliber with mild atherosclerosis. No other significant abno rmalities. IVC / VEINS: No significant abnormality. URINARY BLADDER: No significant abnormality. REPRODUCTIVE ORGANS: Uterus is absent. No significant adnexal abnormality. ADDITIONAL FINDINGS: None. SKELETAL SYSTEM: No significant abnormality. IMPRESSION: 1. No acute findings. 2. Cholelithiasis without evidence of acute cholecystitis. Signer Name: Duran Garduno MD Signed: 01/15/2021 5:03 AM Workstation Name: [id number] [id number]
[2021-01-15 05:37] LABS: Alanine Aminotransferase 36 units/L (7-56); Albumin 3.1 g/dL (3.9-5); Blood Urea Nitrogen 9 mg/dL (7-17); Calcium 7.8 mg/dL (8.4-10.2); Hemolysis Index 5
[2021-01-15 05:39] LABS: BUN/Creatinine Ratio 18
--- NOTE | 2021-01-15 05:53 | XRay Report ---
CHEST 1 VIEW 01/15/2021 4:42 AM INDICATION / CLINICAL INFORMATION: weakness. COMPARISON: One view of the chest from 10/15/2020 FINDINGS: SUPPORT DEVICES: A right internal jugular vein Port-A-Cath terminates over the cavoatrial junction. HEART / MEDIASTINUM: No significant abnormality. LUNGS / PLEURA: There is a right upper lobe mass measuring 5.1 x 4.8 cm. Otherwise clear lungs. No si gnificant pleural effusion. No pneumothorax. ADDITIONAL FINDINGS: No significant additional findings. IMPRESSION: 1. No acute abnormality of the chest. 2. Additional findings as above. Signer Name: Duran Garduno MD Signed: 01/15/2021 5:48 AM Workstation Name: [id number]
[2021-01-15 05:58] LABS: C-Reactive Protein 0.3 mg/dL (0.00-1.30)
[2021-01-15] MEDS ORDERED: MORPHINE 4 MG/1 ML INJ IV PRN (06:24)
[2021-01-15] MEDS ORDERED: MAGNESIUM HYDROXIDE (MOM) ORAL LIQD UDC PO PRN (06:24)
[2021-01-15] MEDS ORDERED: MORPHINE 2 MG/1 ML INJ IV PRN (06:24)
[2021-01-15] MEDS ORDERED: ACETAMINOPHEN 325 MG TAB PO PRN (06:24)
--- NOTE | 2021-01-15 06:35 | History and Physical Report ---
History of Present Illness Date of examination: 01/15/21 Date of admission: 01/15/2021 Chief complaint: Generalized Weakness History of present illness: 50-year-old -[place] female with known history of cervical and lung cancer currently in remission presenting to the emergency room today complaining of generalized weakness which has been getting worse over the past few weeks. She has also been having persistent nausea and vomiting over the past 2 months. Upon arrival of EMS patient's blood pressure was said to be 90s systolic and 70s diastolic patient was said to be tachycardic with heart rate of about 110/min. Patient had a bolus of IV fluid with significant improvement in her blood pressure. She denies any fever or chills, no chest pain or shortness of breath, but has been having about 4-5 episodes of vomiting per day, she has had associated epigastric abdominal discomfort.. She has been taking some Zofran which does not seem to be giving her any relief. Patient denies any sick contacts and no recent travel. She denies any contact w ith anyone with COVID-19. She has not been vaccinated against COVID-19. Chest x-ray today reveals right upper lobe mass measuring about 5.1 x 4.8 cm otherwise lungs are clear. CT of the abdomen and pelvis reveals cholelithiasis without evidence of acute cholecystitis. Labs were significant for hypokalemia of 2.3, hyponatremia of 132. Chloride of 85.5 EKG was significant for prolonged QT interval. [employer] Consultant on-call was notified by the ER physician regarding the abnormal EKG. Past History Past Medical History: other (Lung and Cervical Ca) Past Surgical History: Other (Tubal ligation,Right lower lobectomy,Hysterectomy) Social history: no significant social history Family history: no significant family history Medications and Allergies Allergies Allergy/AdvReac Type Severity Reaction Status Date / Time No Known Allergies Allergy Verified 07/27/20 13:43 Home Medications Medication Instructions Recorded Confirmed Last Taken Type Ketorolac [Toradol] 10 mg PO Q6H PRN #20 tablet 07/27/20 Unknown Rx methOCARBAMOL [Robaxin TAB] 750 mg PO Q8H PRN #30 tablet 07/27/20 Unknown Rx Active Meds: Active Medications Acetaminophen (Acetaminophen 325 Mg Tab) 650 mg PO Q6H PRN PRN Reason: Pain MILD(1-3)/Fever >100.5/ALMEIDA Heparin Sodium (Porcine) (Heparin 5,000 Unit/1 Ml Vial) 5,000 unit SUB-Q Q8HR [facility] Potassium Chloride (Kcl 10meq/100ml) 10 meq in 100 mls @ 100 mls/hr IV Q1H [facility] Stop: 01/15/21 08:59 Last Admin: 01/15/21 05:07 Dose: 100 mls/hr Documented by: Sodium Chloride (Nacl 0.9% 1000 Ml) 1,000 mls @ 125 mls/hr IV DIRECT [facility] Magnesium Hydroxide (Magnesium Hydroxide (Mom) Oral Liqd Udc) 30 ml PO Q4H PRN PRN Reason: Constipation Morphine Sulfate (Morphine 2 Mg/1 Ml Inj) 2 mg IV Q4H PRN PRN Reason: Pain, Moderate (4-6) Morphine Sulfate (Morphine 4 Mg/1 Ml Inj) 4 mg IV Q4H PRN PRN Reason: Pain , Severe (7-10) Ondansetron HCl (Ondansetron 4 Mg/2 Ml Inj) 4 mg IV Q8H PRN PRN Reason: Nausea And Vomiting Sodium Chloride (Sodium Chloride 0.9% 10 Ml Flush Syringe) 10 ml IV BID [facility] Sodium Chloride (Sodium Chloride 0.9% 10 Ml Flush Syringe) 10 ml IV PRN PRN PRN Reason: LINE FLUSH Review of Systems Constitutional: no fever, no chills Ears, nose, mouth and throat: no nasal congestion, no sore throat Cardiovascular: no chest pain, no palpitations Respiratory: no cough, no shortness of breath Gastrointestinal: nausea, vomiting, no abdominal pain, no diarrhea Genitourinary Female: no pelvic pain, no flank pain, no dysuria, no hematuria Musculoskeletal: no neck pain, no low back pain Integumentary: no rash, no pruritis Neurological: weakness, no headaches, no confusion Psychiatric: no anxiety, no depression Endocrine: no polyphagia, no polydipsia, no polyuria, no nocturia Exam - Constitutional Vitals: Temp Pulse Resp BP Pulse Ox 98.4 F 104 H 18 98/67 99 01/15/21 01:50 01/15/21 01:50 01/15/21 01:50 01/15/21 01:50 01/15/21 01:50 General appearance: Present: no acute distress, well-nourished - EENT Eyes: Present: PERRL, EOM intact. Absent: scleral icterus ENT: hearing intact, clear oral mucosa, dentition normal - Neck Neck: Present: supple, normal ROM - Respiratory Respiratory effort: normal Respiratory: bilateral: CTA - Cardiovascular Rhythm: regular Heart Sounds: Present: S1 & S2. Absent: gallop, systolic murmur, diastolic murmur, rub, click - Extremities Extremities: no ischemia, pulses intact, pulses symmetrical, No edema, normal temperature, normal color, Full ROM Peripheral Pulses: within normal limits - Abdominal General gastrointestinal: Present: soft, non-tender, non-distended, normal bowel sounds. Absent: mass - Integumentary Integumentary: Present: clear, warm, dry, normal turgor - Musculoskeletal Musculoskeletal: strength equal bilaterally - Psychiatric Psychiatric: appropriate mood/affect, intact judgment & insight, memory intact, cooperative - Neurologic Neurologic: CNII-XII intact, no focal deficits, moves all extremities HEART Score - HEART Score Troponin: Troponin T < 0.010 ng/mL (0.00-0.029) 01/15/21 02:32 Results - Labs CBC & Chem 7: 01/15/21 02:32 01/15/21 04:51 Labs: Abnormal lab results 01/15/21 01/15/21 01/15/21 Range/Units 02:32 02:32 02:32 PT 16.4 H (12.2-14.9) Sec. INR 1.26 H (0.87-1.13) D-Dimer (0-234) ng/mlDDU Sodium 132 L (137-145) mmol/L Potassium 2.3 L* (3.6-5.0) mmol/L Chloride 85.5 L (98-107) mmol/L Carbon Dioxide 31 H (22-30) mmol/L Creatinine 0.5 L (0.6-1.2) mg/dL Glucose 132 H (65-100) mg/dL Calcium (8.4-10.2) mg/dL Phosphorus 2.30 L (2.5-4.5) mg/dL Ferritin (10.0-200.0) ng/mL Total Bilirubin 1.90 H (0.1-1.2) mg/dL Direct Bilirubin 0.6 H (0-0.2) mg/dL Total Protein (6.3-8.2) g/dL Albumin (3.9-5) g/dL Lipase 66 H (13-60) units/L 01/15/21 01/15/21 01/15/21 Range/Units 04:51 04:51 04:51 PT (12.2-14.9) Sec. INR (0.87-1.13) D-Dimer 1101.34 H (0-234) ng/mlDDU Sodium 129 L (137-145) mmol/L Potassium 2.6 L* (3.6-5.0) mmol/L Chloride 88.7 L (98-107) mmol/L Carbon Dioxide (22-30) mmol/L Creatinine 0.5 L (0.6-1.2) mg/dL Glucose (65-100) mg/dL Calcium 7.8 L D (8.4-10.2) mg/dL Phosphorus (2.5-4.5) mg/dL Ferritin 630.5 H (10.0-200.0) ng/mL Total Bilirubin 1.50 H (0.1-1.2) mg/dL Direct Bilirubin (0-0.2) mg/dL Total Protein 5.9 L (6.3-8.2) g/dL Albumin 3.1 L (3.9-5) g/dL Lipase (13-60) units/L Assessment and Plan - Patient Problems (1) Generalized weakness Current Visit: Yes Status: Acute Plan to address problem: Possibly secondary to the hypotension and intractable nausea and vomiting. Patient placed on IV fluid normal saline. Review of patient's symptoms, she is also being ruled out for possible COVID-19. (2) Nausea and vomiting Current Visit: Yes Status: Acute Plan to address problem: We will place on IV Zofran as needed . We will continue IV fluid. (3) Hypotension Current Visit: Yes Status: Acute Plan to address problem: Patient placed on IV normal saline and will monitor vital signs closely. (4) Hypokalemia Current Visit: Yes Status: Acute Plan to address problem: Potassium will be repleted and will monitor chemistry. (5) Abnormal finding on EKG Current Visit: Yes Status: Acute Plan to address problem: Patient has a prolonged QT interval on EKG. Patient has received some IV magnesium in the emergency room. Will monitor magnesium levels and also monitor EKG. Will await cardiology evaluation. (6) DVT prophylaxis Current Visit: Yes Status: Acute Plan to address problem: Patient placed on subcutaneous heparin. (7) Full code status Current Visit: Yes Status: Acute Plan to address problem: Patient is full code.
--- NOTE | 2021-01-15 09:25 | Progress Note ---
Assessment and Plan Assessment and plan: Hypotension Hypokalemia Lung CA Cervical CA Cholelithiasis without acute cholecystitis Abnormal EKG/prolonged QT 01/15/2021. This is a follow-up from an admission earlier this morning. Await cardiology consultation. Continue IV fluid hydration. Follow-up echocardiogram. History Interval history: No new issues overnight Hospitalist Physical - Constitutional Vitals: Temp Pulse Resp BP Pulse Ox 98.4 F 99 H 16 97/63 100 01/15/21 01:50 01/15/21 07:30 01/15/21 07:30 01/15/21 07:30 01/15/21 07:30 General appearance: Present: no acute distress, well-nourished - EENT Eyes: Present: PERRL, EOM intact ENT: hearing intact, clear oral mucosa, dentition normal - Neck Neck: Present: supple, normal ROM - Respiratory Respiratory effort: normal Respiratory: bilateral: CTA - Cardiovascular Rhythm: regular Heart Sounds: Present: S1 & S2. Absent: gallop, rub - Extremities Extremities: no ischemia, No edema, Full ROM - Abdominal General gastrointestinal: soft, non-tender, non-distended, normal bowel sounds - Integumentary Integumentary: Present: clear, warm, dry - Neurologic Neurologic: CNII-XII intact, moves all extremities HEART Score - HEART Score Troponin: Troponin T < 0.010 ng/mL (0.00-0.029) 01/15/21 02:32 Results - Labs CBC & Chem 7: 01/15/21 02:32 01/15/21 04:51 Labs: Laboratory Last Values WBC 5.1 K/mm3 (4.5-11.0) 01/15/21 02:32 RBC 3.73 M/mm3 (3.65-5.03) 01/15/21 02:32 Hgb 12.1 gm/dl (10.1-14.3) 01/15/21 02:32 Hct 35.4 % (30.3-42.9) 01/15/21 02:32 MCV 95 fl (79-97) 01/15/21 02:32 MCH 32 pg (28-32) 01/15/21 02:32 MCHC 34 % (30-34) 01/15/21 02:32 RDW 13.2 % (13.2-15.2) 01/15/21 02:32 Plt Count 232 K/mm3 (140-440) 01/15/21 02:32 Lymph % (Auto) 27.3 % (13.4-35.0) 01/15/21 02:32 [place] % (Auto) 7.1 % (0.0-7.3) 01/15/21 02:32 Eos % (Auto) 0.2 % (0.0-4.3) 01/15/21 02:32 Baso % (Auto) 0.5 % (0.0-1.8) 01/15/21 02:32 Lymph # (Auto) 1.4 K/mm3 (1.2-5.4) 01/15/21 02:32 [place] # (Auto) 0.4 K/mm3 (0.0-0.8) 01/15/21 02:32 Eos # (Auto) 0.0 K/mm3 (0.0-0.4) 01/15/21 02:32 Baso # (Auto) 0.0 K/mm3 (0.0-0.1) 01/15/21 02:32 Seg Neutrophils % 64.9 % (40.0-70.0) 01/15/21 02:32 Seg Neutrophils # 3.3 K/mm3 (1.8-7.7) 01/15/21 02:32 PT 16.4 Sec. (12.2-14.9) H 01/15/21 02:32 INR 1.26 (0.87-1.13) H 01/15/21 02:32 APTT 26.4 Sec. (24.2-36.6) 01/15/21 02:32 D-Dimer 1101.34 ng/mlDDU (0-234) H 01/15/21 04:51 Sodium 129 mmol/L (137-145) L 01/15/21 04:51 Potassium 2.6 mmol/L (3.6-5.0) L* 01/15/21 04:51 Chloride 88.7 mmol/L (98-107) L 01/15/21 04:51 Carbon Dioxide 27 mmol/L (22-30) 01/15/21 04:51 Anion Gap 16 mmol/L 01/15/21 04:51 BUN 9 mg/dL (7-17) 01/15/21 04:51 Creatinine 0.5 mg/dL (0.6-1.2) L 01/15/21 04:51 Estimated GFR > 60 ml/min 01/15/21 04:51 BUN/Creatinine Ratio 18 % 01/15/21 04:51 Glucose 98 mg/dL (65-100) 01/15/21 04:51 Glucose 100 mg/dL (65-100) 01/15/21 04:51 Lactic Acid 1.80 mmol/L (0.7-2.0) 01/15/21 02:32 Calcium 7.8 mg/dL (8.4-10.2) L D 01/15/21 04:51 Phosphorus 2.30 mg/dL (2.5-4.5) L 01/15/21 02:32 Magnesium 1.80 mg/dL (1.7-2.3) 01/15/21 02:32 Ferritin 630.5 ng/mL (10.0-200.0) H 01/15/21 04:51 Total Bilirubin 1.50 mg/dL (0.1-1.2) H 01/15/21 04:51 Direct Bilirubin 0.6 mg/dL (0-0.2) H 01/15/21 02:32 Indirect Bilirubin 1.3 mg/dL 01/15/21 02:32 AST 20 units/L (5-40) 01/15/21 04:51 ALT 36 units/L (7-56) 01/15/21 04:51 Alkaline Phosphatase 69 units/L (35-129) 01/15/21 04:51 Lactate Dehydrogenase 141 units/L (91-180) 01/15/21 04:51 Troponin T < 0.010 ng/mL (0.00-0.029) 01/15/21 02:32 C-Reactive Protein 0.30 mg/dL (0.00-1.30) 01/15/21 04:51 Total Protein 5.9 g/dL (6.3-8.2) L 01/15/21 04:51 Albumin 3.1 g/dL (3.9-5) L 01/15/21 04:51 Albumin/Globulin Ratio 1.1 % 01/15/21 04:51 Lipase 66 units/L (13-60) H 01/15/21 02:32 Active Medications - Current Medications Current Medications: Generic Name Dose Route Start Last Admin Trade Name Freq PRN Reason Stop Dose Admin Acetaminophen 650 mg 01/15/21 06:24 Acetaminophen 325 Mg Tab PO Q6H PRN Pain MILD(1-3)/Fever >100.5/ALMEIDA Heparin Sodium (Porcine) 5,000 unit 01/15/21 14:00 Heparin 5,000 Unit/1 Ml Vial SUB-Q Q8HR [facility] Sodium Chloride 1,000 mls @ 125 mls/hr 01/15/21 06:30 Nacl 0.9% 1000 Ml IV DIRECT [facility] Magnesium Hydroxide 30 ml 01/15/21 06:24 Magnesium Hydroxide (Mom) Oral Liqd Udc PO Q4H PRN Constipation Morphine Sulfate 2 mg 01/15/21 06:24 Morphine 2 Mg/1 Ml Inj IV Q4H PRN Pain, Moderate (4-6) Morphine Sulfate 4 mg 01/15/21 06:24 Morphine 4 Mg/1 Ml Inj IV Q4H PRN Pain , Severe (7-10) Ondansetron HCl 4 mg 01/15/21 06:24 Ondansetron 4 Mg/2 Ml Inj IV Q8H PRN Nausea And Vomiting Sodium Chloride 10 ml 01/15/21 10:00 Sodium Chloride 0.9% 10 Ml Flush Syringe IV BID [facility] Sodium Chloride 10 ml 01/15/21 06:24 Sodium Chloride 0.9% 10 Ml Flush Syringe IV PRN PRN LINE FLUSH
--- NOTE | 2021-01-15 09:55 | Consultation ---
History of Present Illness Consult date: 01/15/21 Consult reason: other (prolonged QT) History of present illness: Patient was not seen in person due to COVID-19 PUI status in an effort to preven t spread of infection. History obtained through telephone conversation with patient and chart review. 50F with PMHx of cervical/lung CA in remission who is admitted with progressively weakness over last 1 week. Cardiology consulted for recommendations regarding prolonged QT on EKG. Patient reports nausea and vomiting. She has been using zofran without relief. She denies CP or SOB. No prior history of syncope; no FHx of syncope or SCD. Workup notable for presenting BP 90s/70s with HR 110, which improved after IVF resuscitation. Labs notable for K 2.3 --> 2.6, Mg 1.8, Ca 9.2 --> 7.8, and Na 132. Past History Past Medical History: other (Lung and Cervical Ca) Past Surgical History: Other (Tubal ligation,Right lower lobectomy,Hysterectomy) Social history: no significant social history Family history: no significant family history Medications and Allergies Allergies Allergy/AdvReac Type Severity Reaction Status Date / Time No Known Allergies Allergy Verified 07/27/20 13:43 Home Medications Medication Instructions Recorded Confirmed Last Taken Type Ketorolac [Toradol] 10 mg PO Q6H PRN #20 tablet 07/27/20 Unknown Rx methOCARBAMOL [Robaxin TAB] 750 mg PO Q8H PRN #30 tablet 07/27/20 Unknown Rx Active Meds: Active Medications Acetaminophen (Acetaminophen 325 Mg Tab) 650 mg PO Q6H PRN PRN Reason: Pain MILD(1-3)/Fever >100.5/ALMEIDA Heparin Sodium (Porcine) (Heparin 5,000 Unit/1 Ml Vial) 5,000 unit SUB-Q Q8HR [facility] Sodium Chloride (Nacl 0.9% 1000 Ml) 1,000 mls @ 125 mls/hr IV DIRECT [facility] Magnesium Hydroxide (Magnesium Hydroxide (Mom) Oral Liqd Udc) 30 ml PO Q4H PRN PRN Reason: Constipation Morphine Sulfate (Morphine 2 Mg/1 Ml Inj) 2 mg IV Q4H PRN PRN Reason: Pain, Moderate (4-6) Morphine Sulfate (Morphine 4 Mg/1 Ml Inj) 4 mg IV Q4H PRN PRN Reason: Pain , Severe (7-10) Ondansetron HCl (Ondansetron 4 Mg/2 Ml Inj) 4 mg IV Q8H PRN PRN Reason: Nausea And Vomiting Sodium Chloride (Sodium Chloride 0.9% 10 Ml Flush Syringe) 10 ml IV BID [facility] Sodium Chloride (Sodium Chloride 0.9% 10 Ml Flush Syringe) 10 ml IV PRN PRN PRN Reason: LINE FLUSH Physical Examination Vital Signs Temp Pulse Resp BP Pulse Ox 98.4 F 104 H 18 98/67 99 01/15/21 01:50 01/15/21 01:50 01/15/21 01:50 01/15/21 01:50 01/15/21 01:50 Exam deferred. Narrative exam: Exam deferred due to COVID-19 PUI status. Results 01/15/21 02:32 01/15/21 04:51 Cardiac Enzymes 01/15/21 01/15/21 01/15/21 Range/Units 02:32 04:51 04:51 AST 26 20 (5-40) units/L Lactate Dehydrogenase 141 (91-180) units/L Coagulation 01/15/21 Range/Units 02:32 PT 16.4 H (12.2-14.9) Sec. INR 1.26 H (0.87-1.13) APTT 26.4 (24.2-36.6) Sec. CBC 01/15/21 Range/Units 02:32 WBC 5.1 (4.5-11.0) K/mm3 RBC 3.73 (3.65-5.03) M/mm3 Hgb 12.1 (10.1-14.3) gm/dl Hct 35.4 (30.3-42.9) % Plt Count 232 (140-440) K/mm3 Lymph # (Auto) 1.4 (1.2-5.4) K/mm3 [place] # (Auto) 0.4 (0.0-0.8) K/mm3 Eos # (Auto) 0.0 (0.0-0.4) K/mm3 Baso # (Auto) 0.0 (0.0-0.1) K/mm3 Comprehensive Metabolic Panel 01/15/21 01/15/21 01/15/21 Range/Units 02:32 04:51 04:51 Sodium 132 L 129 L (137-145) mmol/L Potassium 2.3 L* 2.6 L* (3.6-5.0) mmol/L Chloride 85.5 L 88.7 L (98-107) mmol/L Carbon Dioxide 31 H 27 (22-30) mmol/L BUN 11 9 (7-17) mg/dL Creatinine 0.5 L 0.5 L (0.6-1.2) mg/dL Glucose 132 H 100 98 (65-100) mg/dL Calcium 9.2 7.8 L D (8.4-10.2) mg/dL Direct Bilirubin 0.6 H (0-0.2) mg/dL Indirect Bilirubin 1.3 mg/dL AST 26 20 (5-40) units/L ALT 42 36 (7-56) units/L Alkaline Phosphatase 80 69 (35-129) units/L Total Protein 6.9 5.9 L (6.3-8.2) g/dL Albumin 3.9 3.1 L (3.9-5) g/dL 01/15/21 at 3AM EKG - sinus tachycardia, prolonged QTc (529 ms per my calculation) Assessment and Plan #Prolonged QT #Hypokalemia #Hypocalcemia #Nausea and vomiting #Hypotension #Cervical / lung CA in remission -EKG with prolonged QTc, likely secondary to hypokalemia, hypocalcemia, and antiemetic use. -Replace K>4 and Mg>2. Correct hypocalcemia. -Would avoid antiemetics, such as zofran. May consider tigan, which does not have QT prolonging effect. -Check echo. -IVF resuscitation and supportive care.
[2021-01-15] MEDS ORDERED: POTASSIUM CHLORIDE ER 20 MEQ TAB PO NR ×2 (10:30→14:00)
--- NOTE | 2021-01-15 11:43 | Cat Scan Report ---
CTA CHEST WITH CONTRAST INDICATION / CLINICAL INFORMATION: elevated d-dimer OMNIPAQUE 350 100ML. TECHNIQUE: Axial CT images were obtained through the chest after injection of IV contrast. 3 plane SD P and/or 3D reconstructions were produced. All CT scans at this location are performed using CT dose reduction for ALARA by means of automated exposure control. COMPARISON: None available. FINDINGS: There is a large mass within the mediastinum extending to the right upper lung. On axial images this mass measures at least 7.3 x 5.1 cm. There is extension inferiorly with encasement of the trachea and mary anne. Encasement of the right hilum. There is partial encasement of the right mainstem bronchus. T here is also partial encasement of the pulmonary arteries on the right. The left pulmonary arteries a re patent. In the upper abdomen there is a hypodense area within the liver measuring 3.9 x 2.7 cm. Ga llstone is identified. No focal consolidation or pleural effusion. On coronal images the mass measures 8.7 x 7.6 cm. Encasement and narrowing of several right upper alex g pulmonary arteries ADDITIONAL FINDINGS: None. IMPRESSION: 1. Large mediastinal and right upper lung mass with encasement of the trachea, mary anne and right remi tem bronchus. There is also encasement of the right main pulmonary artery and upper lobe branches. Fi ndings suggest malignancy and further workup recommended. 2. There is encasement of the right main pulmonary artery and upper lobe branches however no definite filling defect to suggest PTE. 3. Cholelithiasis. Area of low density within the right hepatic lobe. Signer Name: Trent Daniel MD Signed: 01/15/2021 11:39 AM Workstation Name: [id number]
[2021-01-15] MEDS: SODIUM CHLORIDE 0.9% 1000 ML 1,000 ML IV SCH (13:11)
--- NOTE | 2021-01-15 14:33 | Electrocardiograph Report ---
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
--- NOTE | 2021-01-15 14:34 | Electrocardiograph Report ---
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
[2021-01-15] MEDS: HEPARIN 5,000 UNIT/1 ML VIAL SUB-Q SCH ×2 (14:40→22:29)
[2021-01-16 03:21] LABS: Hemoglobin 10.9 gm/dl (10.1-14.3); Mean Corpuscular HGB Conc 34 % (30-34); Mean Corpuscular Volume 95 fl (79-97); Platelet Count 209 K/mm3 (140-440); Red Blood Count 3.37 M/mm3 (3.65-5.03); Red Cell Distribution Width 13.4 % (13.2-15.2)
[2021-01-16 03:34] LABS: INR 1.27 (0.87-1.13)
[2021-01-16 03:41] LABS: Blood Urea Nitrogen 5 mg/dL (7-17); Calcium 9.1 mg/dL (8.4-10.2); Hemolysis Index 1
[2021-01-16 03:44] LABS: BUN/Creatinine Ratio 17
[2021-01-16] MEDS: SODIUM CHLORIDE 0.9% 1000 ML 1,000 ML IV SCH ×2 (05:54→14:07)
[2021-01-16] MEDS: HEPARIN 5,000 UNIT/1 ML VIAL SUB-Q SCH ×3 (05:54→22:55)
[2021-01-16 06:31] LABS: Anisocytosis 1+; Total Cells Counted 100
[2021-01-16 06:32] LABS: Platelet Estimate Consistent w Auto
--- NOTE | 2021-01-16 08:47 | Progress Note ---
Assessment and Plan Assessment and plan: Hypotension Hypokalemia Lung CA Cervical CA Cholelithiasis without acute cholecystitis Abnormal EKG/prolonged QT Elevated D-dimer 01/15/2021. This is a follow-up from an admission earlier this morning. Await cardiology consultation. Continue IV fluid hydration. Follow-up echocardiogram. 01/16/2021. Prolonged QT secondary to hypokalemia/hypocalcemia. Replace potassium and magnesium per cardiology recommendations. Correct hypocalcemia. Follow-up echocardiogram. COVID-19 negative. Patient with elevated D-dimer but CTA of chest also negative. Transfer to telemetry. History Interval history: No new issues overnight Hospitalist Physical - Constitutional Vitals: Temp Pulse Resp BP Pulse Ox 98.3 F 98 H 12 100/61 100 01/16/21 07:51 01/16/21 06:00 01/16/21 06:00 01/16/21 06:00 01/16/21 06:00 General appearance: Present: no acute distress, well-nourished - EENT Eyes: Present: PERRL, EOM intact ENT: hearing intact, clear oral mucosa, dentition normal - Neck Neck: Present: supple, normal ROM - Respiratory Respiratory effort: normal Respiratory: bilateral: CTA - Cardiovascular Rhythm: regular Heart Sounds: Present: S1 & S2. Absent: gallop, rub - Extremities Extremities: no ischemia, No edema, Full ROM - Abdominal General gastrointestinal: soft, non-tender, non-distended, normal bowel sounds - Integumentary Integumentary: Present: clear, warm, dry - Neurologic Neurologic: CNII-XII intact, moves all extremities HEART Score - HEART Score Troponin: Troponin T < 0.010 ng/mL (0.00-0.029) 01/15/21 11:41 Results - Labs CBC & Chem 7: 01/16/21 02:12 01/16/21 02:12 Labs: Laboratory Last Values WBC 4.5 K/mm3 (4.5-11.0) 01/16/21 02:12 RBC 3.37 M/mm3 (3.65-5.03) L 01/16/21 02:12 Hgb 10.9 gm/dl (10.1-14.3) 01/16/21 02:12 Hct 32.0 % (30.3-42.9) 01/16/21 02:12 MCV 95 fl (79-97) 01/16/21 02:12 MCH 32 pg (28-32) 01/16/21 02:12 MCHC 34 % (30-34) 01/16/21 02:12 RDW 13.4 % (13.2-15.2) 01/16/21 02:12 Plt Count 209 K/mm3 (140-440) 01/16/21 02:12 Lymph % (Auto) 27.3 % (13.4-35.0) 01/15/21 02:32 [place] % (Auto) 7.1 % (0.0-7.3) 01/15/21 02:32 Eos % (Auto) 0.2 % (0.0-4.3) 01/15/21 02:32 Baso % (Auto) 0.5 % (0.0-1.8) 01/15/21 02:32 Lymph # (Auto) 1.4 K/mm3 (1.2-5.4) 01/15/21 02:32 A[place] # (Auto) 0.4 K/mm3 (0.0-0.8) 01/15/21 02:32 Eos # (Auto) 0.0 K/mm3 (0.0-0.4) 01/15/21 02:32 Baso # (Auto) 0.0 K/mm3 (0.0-0.1) 01/15/21 02:32 Add Manual Diff Complete 01/16/21 02:12 Total Counted 100 01/16/21 02:12 Seg Neutrophils % 64.9 % (40.0-70.0) 01/15/21 02:32 Seg Neuts % (Manual) 77.0 % (40.0-70.0) H 01/16/21 02:12 Band Neutrophils % 1.0 % 01/16/21 02:12 Lymphocytes % (Manual) 15.0 % (13.4-35.0) 01/16/21 02:12 Monocytes % (Manual) 6.0 % (0.0-7.3) 01/16/21 02:12 Basophils % (Manual) 1.0 % (0.0-1.8) 01/16/21 02:12 Nucleated RBC % Not Reportable 01/16/21 02:12 Seg Neutrophils # 3.3 K/mm3 (1.8-7.7) 01/15/21 02:32 Seg Neutrophils # Man 3.5 K/mm3 (1.8-7.7) 01/16/21 02:12 Band Neutrophils # 0.0 K/mm3 01/16/21 02:12 Lymphocytes # (Manual) 0.7 K/mm3 (1.2-5.4) L 01/16/21 02:12 Abs React Lymphs (Man) 0.0 K/mm3 01/16/21 02:12 Monocytes # (Manual) 0.3 K/mm3 (0.0-0.8) 01/16/21 02:12 Eosinophils # (Manual) 0.0 K/mm3 (0.0-0.4) 01/16/21 02:12 Basophils # (Manual) 0.0 K/mm3 (0.0-0.1) 01/16/21 02:12 Metamyelocytes # 0.0 K/mm3 01/16/21 02:12 Myelocytes # 0.0 K/mm3 01/16/21 02:12 Promyelocytes # 0.0 K/mm3 01/16/21 02:12 Blast Cells # 0.0 K/mm3 01/16/21 02:12 WBC Morphology Not Reportable 01/16/21 02:12 Hypersegmented Neuts Not Reportable 01/16/21 02:12 Hyposegmented Neuts Not Reportable 01/16/21 02:12 Hypogranular Neuts Not Reportable 01/16/21 02:12 Smudge Cells Not Reportable 01/16/21 02:12 Toxic Granulation Not Reportable 01/16/21 02:12 Toxic Vacuolation Not Reportable 01/16/21 02:12 Dohle Bodies Not Reportable 01/16/21 02:12 Pelger-Huet Anomaly Not Reportable 01/16/21 02:12 Alonzo Rods Not Reportable 01/16/21 02:12 Platelet Estimate Consistent w auto 01/16/21 02:12 Clumped Platelets Not Reportable 01/16/21 02:12 Plt Clumps, EDTA Not Reportable 01/16/21 02:12 Large Platelets Not Reportable 01/16/21 02:12 Giant Platelets Not Reportable 01/16/21 02:12 Platelet Satelliting Not Reportable 01/16/21 02:12 Plt Morphology Comment Not Reportable 01/16/21 02:12 RBC Morphology Not Reportable 01/16/21 02:12 Dimorphic RBCs Not Reportable 01/16/21 02:12 Polychromasia Not Reportable 01/16/21 02:12 Hypochromasia Not Reportable 01/16/21 02:12 Poikilocytosis Not Reportable 01/16/21 02:12 Anisocytosis 1+ 01/16/21 02:12 Microcytosis Not Reportable 01/16/21 02:12 Macrocytosis Not Reportable 01/16/21 02:12 Spherocytes Not Reportable 01/16/21 02:12 Pappenheimer Bodies Not Reportable 01/16/21 02:12 Sickle Cells Not Reportable 01/16/21 02:12 Target Cells Not Reportable 01/16/21 02:12 Tear Drop Cells Not Reportable 01/16/21 02:12 Ovalocytes Not Reportable 01/16/21 02:12 Helmet Cells Not Reportable 01/16/21 02:12 [place] Bodies Not Reportable 01/16/21 02:12 [place] Rings Not Reportable 01/16/21 02:12 [place] Cells Not Reportable 01/16/21 02:12 Bite Cells Not Reportable 01/16/21 02:12 Crenated Cell Not Reportable 01/16/21 02:12 Elliptocytes Not Reportable 01/16/21 02:12 Acanthocytes (Spur) Not Reportable 01/16/21 02:12 Rouleaux Not Reportable 01/16/21 02:12 Hemoglobin C Crystals Not Reportable 01/16/21 02:12 Schistocytes Not Reportable 01/16/21 02:12 Malaria parasites Not Reportable 01/16/21 02:12 Calvin Bodies Not Reportable 01/16/21 02:12 Hem Pathologist Commnt No 01/16/21 02:12 PT 16.5 Sec. (12.2-14.9) H 01/16/21 02:12 INR 1.27 (0.87-1.13) H 01/16/21 02:12 APTT 26.4 Sec. (24.2-36.6) 01/15/21 02:32 D-Dimer 1101.34 ng/mlDDU (0-234) H 01/15/21 04:51 Sodium 134 mmol/L (137-145) L 01/16/21 02:12 Potassium 3.4 mmol/L (3.6-5.0) L D 01/16/21 02:12 Chloride 95.0 mmol/L (98-107) L 01/16/21 02:12 Carbon Dioxide 28 mmol/L (22-30) 01/16/21 02:12 Anion Gap 14 mmol/L 01/16/21 02:12 BUN 5 mg/dL (7-17) L 01/16/21 02:12 Creatinine 0.3 mg/dL (0.6-1.2) L 01/16/21 02:12 Estimated GFR > 60 ml/min 01/16/21 02:12 BUN/Creatinine Ratio 17 % 01/16/21 02:12 Glucose 81 mg/dL (65-100) 01/16/21 02:12 POC Glucose 91 mg/dL (70-105) 01/15/21 23:36 Lactic Acid 1.80 mmol/L (0.7-2.0) 01/15/21 02:32 Calcium 9.1 mg/dL (8.4-10.2) D 01/16/21 02:12 Phosphorus 2.30 mg/dL (2.5-4.5) L 01/15/21 02:32 Magnesium 1.80 mg/dL (1.7-2.3) 01/15/21 02:32 Ferritin 630.5 ng/mL (10.0-200.0) H 01/15/21 04:51 Total Bilirubin 1.50 mg/dL (0.1-1.2) H 01/15/21 04:51 Direct Bilirubin 0.6 mg/dL (0-0.2) H 01/15/21 02:32 Indirect Bilirubin 1.3 mg/dL 01/15/21 02:32 AST 20 units/L (5-40) 01/15/21 04:51 ALT 36 units/L (7-56) 01/15/21 04:51 Alkaline Phosphatase 69 units/L (35-129) 01/15/21 04:51 Lactate Dehydrogenase 141 units/L (91-180) 01/15/21 04:51 Troponin T < 0.010 ng/mL (0.00-0.029) 01/15/21 11:41 C-Reactive Protein 0.30 mg/dL (0.00-1.30) 01/15/21 04:51 Total Protein 5.9 g/dL (6.3-8.2) L 01/15/21 04:51 Albumin 3.1 g/dL (3.9-5) L 01/15/21 04:51 Albumin/Globulin Ratio 1.1 % 01/15/21 04:51 Lipase 66 units/L (13-60) H 01/15/21 02:32 Procalcitonin 11.57 ng/mL (<0.15) 01/15/21 04:51 Coronavirus (PCR) Negative (Negative) 01/15/21 08:15 Microbiology: Microbiology 01/15/21 02:32 Peripheral/Venous Blood Culture - Preliminary Culture in Progress 01/15/21 02:26 Peripheral/Venous Blood Culture - Preliminary Culture in Progress Active Medications - Current Medications Current Medications: Generic Name Dose Route Start Last Admin Trade Name Freq PRN Reason Stop Dose Admin Acetaminophen 650 mg 01/15/21 06:24 Acetaminophen 325 Mg Tab PO Q6H PRN Pain MILD(1-3)/Fever >100.5/ALMEIDA Heparin Sodium (Porcine) 5,000 unit 01/15/21 14:00 01/16/21 05:54 Heparin 5,000 Unit/1 Ml Vial SUB-Q 5,000 unit Q8HR AHSAN Administration Sodium Chloride 1,000 mls @ 125 mls/hr 01/15/21 06:30 01/16/21 05:54 Nacl 0.9% 1000 Ml IV 125 mls/hr DIRECT AHSAN Administration Magnesium Hydroxide 30 ml 01/15/21 06:24 Magnesium Hydroxide (Mom) Oral Liqd Udc PO Q4H PRN Constipation Morphine Sulfate 2 mg 01/15/21 06:24 Morphine 2 Mg/1 Ml Inj IV Q4H PRN Pain, Moderate (4-6) Morphine Sulfate 4 mg 01/15/21 06:24 Morphine 4 Mg/1 Ml Inj IV Q4H PRN Pain , Severe (7-10) Ondansetron HCl 4 mg 01/15/21 06:24 Ondansetron 4 Mg/2 Ml Inj IV Q8H PRN Nausea And Vomiting Sodium Chloride 10 ml 01/15/21 10:00 01/15/21 22:29 Sodium Chloride 0.9% 10 Ml Flush Syringe IV 10 ml BID AHSAN Administration Sodium Chloride 10 ml 01/15/21 06:24 Sodium Chloride 0.9% 10 Ml Flush Syringe IV PRN PRN LINE FLUSH Nutrition/Malnutrition Assess - Dietary Evaluation Nutrition/Malnutrition Findings: Nutrition Notes Start: 01/15/21 09: 31 Freq: Status: Active Protocol: Document 01/15/21 09:31 (Rec: 01/15/21 09:36 [email or web address]) Nutrition Notes Need for Assessment generated from: MD Order Initial or Follow up Brief Note Other Pertinent Diagnosis hx cervical and lung cancer, mass in lung, generalized weakness Current Diet regular Height 5 ft 8 in Weight 63.503 kg [place] Body Weight (kg) 63.63 BMI 21.2 Intake Prior to Admission Poor Weight Status Appropriate Subjective/Other Information MD consult for diet education. Pt very weak and having N/V for 2 months. Pt on hold in ED . GI Symptoms Nausea,Vomiting Current % PO Negligible #1 Nutrition Diagnosis Predicted suboptimal energy intake Etiology chronic illness As Evidenced by Signs and Symptoms N/V, generlized weakness Is patient on ventilator? No Is Patient Ambulatory and/or Out of Bed No REE-(B[place]-St. Jeor-confined to bed) 7616.269 Calculation Used for Recommendations [place]-St Jeor Additional Notes Protein: (1-1.2g/kg) 64-76g Fluid: 1ml/kcal or per MD Nutrition Intervention Add Supplement/Snack (indicate name/kcal Ensure Clear BID /protein ) Provides kCal: 480 Provides Protein (gm) 16 Follow-Up By: 01/16/21 Additional Comments FU for assessment
[2021-01-16] MEDS: ONDANSETRON 4 MG/2 ML INJ IV PRN ×2 (09:48→14:04)
[2021-01-16] MEDS ORDERED: METOCLOPRAMIDE 10 MG/2 ML INJ IV PRN (09:51)
--- NOTE | 2021-01-16 11:15 | Consultation ---
History of Present Illness - Reason for Consult Consult date: 01/16/21 COVID-19 PUI Requesting physician: CRISTIAN ELLIOTT - History of Present Illness The patient is a 50-year-old female with known cervical and lung cancer admitted to the hospital on 01/15/2021 with generalized weakness worsening over the last few weeks. She was also having some nausea and vomiting. Upon additional evaluation in the ER, chest x-ray showed right upper lobe mass, CT abdomen and pelvis showed cholelithiasis but no evidence of cholecystitis. Patient also noted to have electrolyte abnormalities. She was made a COVID-19 PUI and infectious diseases was consulted. She is afebrile. Has no complaints, threw up earlier this morning. She follows up with an oncologist in [place], [place]. Review of Systems: General: no fevers,chills or rigors HEENT: no new visual disturbance Respiratory: No cough, sputum, hemoptysis or shortness of breath Cardiovascular: No chest pain, syncope Gastrointestinal: Nausea, vomiting but no diarrhea Genitourinary: No dysuria or hematuria Musculoskeletal: No new or worsening neck pain or back pain Neurologic: No headaches, seizures Hematologic: No easy bruising or bleeding Endocrine: No night sweats or acute weight loss Skin: negative for rash, jaundice Psychiatric: No suicidal or homicidal ideation Past History Past Medical History: other (Lung and Cervical Ca) Past Surgical History: Other (Tubal ligation,Right lower lobectomy,Hysterectomy) Social history: no significant social history Family history: no significant family history Medications and Allergies Allergies Allergy/AdvReac Type Severity Reaction Status Date / Time No Known Allergies Allergy Verified 07/27/20 13:43 Home Medications Medication Instructions Recorded Confirmed Last Taken Type Ketorolac [Toradol] 10 mg PO Q6H PRN #20 tablet 07/27/20 01/15/21 Unknown Rx methOCARBAMOL [Robaxin TAB] 750 mg PO Q8H PRN #30 tablet 07/27/20 01/15/21 Unknown Rx Active Meds: Active Medications Acetaminophen (Acetaminophen 325 Mg Tab) 650 mg PO Q6H PRN PRN Reason: Pain MILD(1-3)/Fever >100.5/ALMEIDA Heparin Sodium (Porcine) (Heparin 5,000 Unit/1 Ml Vial) 5,000 unit SUB-Q Q8HR AHSAN Last Admin: 01/16/21 05:54 Dose: 5,000 unit Documented by: Sodium Chloride (Nacl 0.9% 1000 Ml) 1,000 mls @ 125 mls/hr IV DIRECT [facility] Last Admin: 01/16/21 05:54 Dose: 125 mls/hr Documented by: Magnesium Hydroxide (Magnesium Hydroxide (Mom) Oral Liqd Udc) 30 ml PO Q4H PRN PRN Reason: Constipation Metoclopramide HCl (Metoclopramide 10 Mg/2 Ml Inj) 10 mg IV Q6H PRN PRN Reason: Nausea And Vomiting Morphine Sulfate (Morphine 2 Mg/1 Ml Inj) 2 mg IV Q4H PRN PRN Reason: Pain, Moderate (4-6) Morphine Sulfate (Morphine 4 Mg/1 Ml Inj) 4 mg IV Q4H PRN PRN Reason: Pain , Severe (7-10) Ondansetron HCl (Ondansetron 4 Mg/2 Ml Inj) 4 mg IV Q8H PRN PRN Reason: Nausea And Vomiting Last Admin: 01/16/21 09:48 Dose: 4 mg Documented by: Sodium Chloride (Sodium Chloride 0.9% 10 Ml Flush Syringe) 10 ml IV BID [facility] Last Admin: 01/16/21 09:48 Dose: 10 ml Documented by: Sodium Chloride (Sodium Chloride 0.9% 10 Ml Flush Syringe) 10 ml IV PRN PRN PRN Reason: LINE FLUSH Physical Examination - Physical Exam Narrative exam: Physical Exam: Constitutional: Alert, cooperative. No acute distress Head, Ears, Nose: Normocephalic, atraumatic. External ears, nose normal Eyes: Conjunctivae/corneas clear. No icterus. No ptosis. Neck: Supple, no meningeal signs Cardiovascular: S1, S2 + Respiratory: Good air entry, clear to auscultation bilaterally GI: Soft, non-tender; bowel sounds normal. No peritoneal signs Musculoskeletal: No pedal edema, no cyanosis. Skin: No rash or abscess Hem/Lymphatic: No palpable cervical or supraclavicular nodes. No lymphangitis Psych: Mood ok. Affect normal Neurological: Awake, alert, oriented. No gross abnormality - Constitutional Vitals: Vital Signs Temp Pulse Resp BP Pulse Ox 98.3 F 98 H 12 100/61 100 01/16/21 07:51 01/16/21 06:00 01/16/21 06:00 01/16/21 06:00 01/16/21 06:00 Temperature -Last 24 Hours Temperature 98.3 F Temperature 98.6 F Temperature 98.2 F Temperature 98.5 F Results - Labs CBC & Chem 7: 01/16/21 02:12 01/16/21 02:12 Labs: Abnormal lab results 01/16/21 01/16/21 01/16/21 Range/Units 02:12 02:12 02:12 RBC 3.37 L (3.65-5.03) M/mm3 Seg Neuts % (Manual) 77.0 H (40.0-70.0) % Lymphocytes # (Manual) 0.7 L (1.2-5.4) K/mm3 PT 16.5 H (12.2-14.9) Sec. INR 1.27 H (0.87-1.13) Sodium 134 L (137-145) mmol/L Potassium 3.4 L D (3.6-5.0) mmol/L Chloride 95.0 L (98-107) mmol/L BUN 5 L (7-17) mg/dL Creatinine 0.3 L (0.6-1.2) mg/dL - Imaging and Cardiology Chest x-ray: report reviewed, image reviewed (PORT +, no pneumonia ) CT scan - chest: report reviewed, image reviewed (RUL region mass. No pneumonia seen.) Assessment and Plan Cultures: 01/15/2021 blood culture: In process COVID-19 PCR: Negative A/P: 50-year-old female with known cervical and lung cancer admitted to the hospital on 01/15/2021 with generalized weakness worsening over the last few weeks: #COVID-19 PUI: PCR is negative. No fever, no hypoxia. Procalcitonin elevated to be related to malignancy, no evidence of acute bacterial infection or sepsis #Hypokalemia, hyponatremia #Cervical and lung cancer: Has received radiation and chemotherapy. Follows with an oncologist in [place]. Recs: Remains off antibiotics. COVID-19 PCR is negative. ID will sign off. Please call with questions Mya Sargent MD, FACP [facility] O: [phone] F: [phone]
--- NOTE | 2021-01-16 13:07 | Progress Note ---
Assessment and Plan - Patient Problems (1) Prolonged Q-T interval on ECG Current Visit: Yes Status: Acute Plan to address problem: 50-year-old woman who presented with with nausea vomiting, abdominal pain, treated with Zofran antiemetics. EKG in the emergency room showed normal sinus rhythm and QT prolongation, which prompted a cardiac consultation. Her abdominal pathology was associated with depletion of serum electrolytes including potassium and magnesium. Patient has no cardiac complaints, echocardiogram preliminary shows well- preserved left ventricular systolic function. In addition to stopping Zofran, and repleting electrolytes, we will obtain serial EKG tracings to further assess the QT interval. Subjective Date of service: 01/16/21 Interval history: Patient is comfortable, no cardiac complaints. On the monitor she is in a sinus rhythm at 99, systolic blood pressure is 99 mmHg. An echocardiogram study is in progress, preliminary left ventricular systolic function is well-preserved. Objective Vital Signs Temp Pulse Resp BP Pulse Ox 01/16/21 12:21 98 F 01/16/21 12:00 100 H 19 116/77 100 01/16/21 11:30 100 H 21 109/76 100 01/16/21 11:00 96 H 19 99/66 100 01/16/21 10:30 95 H 21 108/69 100 01/16/21 10:00 97 H 18 104/70 100 01/16/21 09:30 111 H 13 84/51 100 01/16/21 09:00 129 H 12 94/63 100 01/16/21 08:30 119 H 24 85/56 100 01/16/21 08:00 113 H 18 94/63 100 01/16/21 07:51 98.3 F 01/16/21 07:30 98 H 19 97/59 99 01/16/21 07:00 98 H 18 88/53 97 01/16/21 06:30 106 H 17 104/64 99 01/16/21 06:00 98 H 12 100/61 100 01/16/21 05:30 97 H 18 92/55 100 01/16/21 05:00 96 H 19 84/48 100 01/16/21 04:30 96 H 19 81/48 100 01/16/21 04:15 95 H 01/16/21 04:00 98.6 F 96 H 18 86/53 100 01/16/21 03:30 95 H 16 92/54 100 01/16/21 03:00 99 H 12 95/57 100 01/16/21 02:30 92 H 16 92/60 100 01/16/21 02:00 97 H 16 93/57 100 01/16/21 01:30 95 H 17 89/55 100 01/16/21 01:00 105 H 27 H 95/61 98 01/16/21 00:30 94 H 16 92/59 99 01/16/21 00:04 97 H 01/16/21 00:00 98.2 F 97 H 18 84/60 97 01/15/21 23:30 95 H 12 80/52 100 01/15/21 23:00 97 H 16 82/44 99 01/15/21 22:30 111 H 15 91/47 99 01/15/21 22:00 95 H 18 81/45 99 01/15/21 21:30 97 H 17 87/45 99 01/15/21 21:00 95 H 18 78/38 99 01/15/21 20:30 95 H 16 78/40 99 01/15/21 20:05 95 H 01/15/21 20:00 98.5 F 94 H 16 89/56 100 01/15/21 19:30 103 H 18 93/59 100 01/15/21 19:00 95 H 15 89/56 100 01/15/21 18:38 96 H 16 90/57 100 01/15/21 18:30 96 H 16 90/57 100 01/15/21 18:20 101 H 18 85/54 100 01/15/21 18:10 98 H 17 74/40 99 01/15/21 18:00 97 H 19 74/40 100 01/15/21 17:50 97 H 21 81/44 100 01/15/21 17:40 97 H 19 81/44 100 01/15/21 17:30 98 H 19 79/45 100 01/15/21 17:20 100 H 17 100 01/15/21 17:16 101 H 16 100 01/15/21 17:00 100 H 18 81/44 100 01/15/21 16:52 102 H 17 70/35 100 01/15/21 16:00 18 01/15/21 14:30 111 H 14 98/65 01/15/21 14:20 109 H 18 98/65 01/15/21 14:10 111 H 26 H 98/65 98 01/15/21 14:00 101 H 21 98/65 100 01/15/21 13:50 112 H 17 93/59 99 01/15/21 13:40 102 H 18 93/59 100 01/15/21 13:30 107 H 17 93/59 100 01/15/21 13:20 108 H 15 93/59 99 01/15/21 13:10 104 H 17 93/59 100 - Physical Examination General: No Apparent Distress HEENT: Positive: PERRL Neck: Positive: neck supple Cardiac: Positive: Reg Rate and Rhythm Lungs: Positive: clear to auscultation Neuro: Positive: Grossly Intact Abdomen: Positive: Soft Skin: Positive: Clear Extremities: Absent: edema - Labs and Meds Coagulation 01/16/21 Range/Units 02:12 PT 16.5 H (12.2-14.9) Sec. INR 1.27 H (0.87-1.13) CBC 01/16/21 Range/Units 02:12 WBC 4.5 (4.5-11.0) K/mm3 RBC 3.37 L (3.65-5.03) M/mm3 Hgb 10.9 (10.1-14.3) gm/dl Hct 32.0 (30.3-42.9) % Plt Count 209 (140-440) K/mm3 Comprehensive Metabolic Panel 01/16/21 Range/Units 02:12 Sodium 134 L (137-145) mmol/L Potassium 3.4 L D (3.6-5.0) mmol/L Chloride 95.0 L (98-107) mmol/L Carbon Dioxide 28 (22-30) mmol/L BUN 5 L (7-17) mg/dL Creatinine 0.3 L (0.6-1.2) mg/dL Glucose 81 (65-100) mg/dL Calcium 9.1 D (8.4-10.2) mg/dL
[2021-01-17] MEDS: HEPARIN 5,000 UNIT/1 ML VIAL SUB-Q SCH ×3 (06:18→22:21)
[2021-01-17] MEDS: SODIUM CHLORIDE 0.9% 1000 ML 1,000 ML IV SCH ×2 (06:19→15:38)
--- NOTE | 2021-01-17 10:30 | Electrocardiograph Report ---
[facility] Test Date: 2021-01-16 Test Time: 14:29:27 Pat Name: ORLY MOORE Department: Room: A474 Gender: F Addiction Psychiatrist: TRINO : 1970 Requested By: ED CANTU Order Number: [id number] Reading MD: Diogo Vasquez Measurements Intervals [place] Rate: 98 P: 79 NE: 151 QRS: 83 QRSD: 95 T: 86 QT: 365 QTc: 465 Interpretive Statements Sinus rhythm Probable anteroseptal infarct, old Compared to ECG 01/15/2021 04:57:31 Prolonged QT interval no longer present Myocardial infarct finding still present Electronically Signed On 01-17-2021 10:30:09 EDT by Diogo Vasquez
--- NOTE | 2021-01-17 11:02 | Progress Note ---
Assessment and Plan - Patient Problems (1) Abnormal finding on EKG Current Visit: Yes Status: Acute Plan to address problem: EKG in the emergency room showed normal sinus rhythm and QT prolongation Repeat ECG shows normal sinus rhythm and normal QT interval. Echocardiogram shows well-preserved left ventricular systolic function, EF 50- 55% Plan: Obtain serial EKG tracings to further assess the QT interval. Subjective Date of service: 01/17/21 Interval history: Patient is resting in bed comfortably. Denies unusual shortness of breath, chest pain, and palpitations. Objective Vital Signs Temp Pulse Pulse Resp BP Pulse Ox 01/17/21 10:07 98.3 F 98 H 17 102/69 96 01/17/21 04:01 98.0 F 112 H 18 92/55 100 01/16/21 23:27 98.0 F 18 96/63 01/16/21 22:00 112 H 101 H 97 01/16/21 19:10 98.0 F 112 H 18 110/75 100 01/16/21 16:20 97.8 F 101 H 19 119/79 98 01/16/21 16:00 105 H 01/16/21 14:41 97 H 17 122/79 100 01/16/21 14:32 98 H 01/16/21 14:30 100 H 17 122/79 100 01/16/21 14:00 95 H 20 124/80 100 01/16/21 13:30 96 H 18 124/80 100 01/16/21 13:00 100 H 20 116/78 100 01/16/21 12:30 98 H 17 104/62 99 01/16/21 12:21 98 F 01/16/21 12:00 100 H 19 116/77 100 01/16/21 11:30 100 H 21 109/76 100 01/16/21 11:00 96 H 19 99/66 100 - Physical Examination General: No Apparent Distress HEENT: Positive: PERRL Neck: Positive: neck supple Cardiac: Positive: Reg Rate and Rhythm Lungs: Positive: Decreased Breath Sounds Neuro: Positive: Grossly Intact Extremities: Absent: edema
--- NOTE | 2021-01-17 13:08 | Progress Note ---
Assessment and Plan Assessment and plan: Hypotension Hypokalemia Lung CA Cervical CA Cholelithiasis without acute cholecystitis Abnormal EKG/prolonged QT Elevated D-dimer 01/15/2021. This is a follow-up from an admission earlier this morning. Await cardiology consultation. Continue IV fluid hydration. Follow-up echocardiogram. 01/16/2021. Prolonged QT secondary to hypokalemia/hypocalcemia. Replace potassium and magnesium per cardiology recommendations. Correct hypocalcemia. Follow-up echocardiogram. COVID-19 negative. Patient with elevated D-dimer but CTA of chest also negative. Transfer to telemetry. 01/17/2021 Patient is 50 yo with lung cancer, cervical cancer. She also has prolonged QT interval. Cardiology following. QTc 465, improving. I discussed case with cardiology History Interval history: soreness of throat Hospitalist Physical - Physical exam Narrative exam: Gen: Not in acute distress, lying in bed HEENT: Normocephalic, atraumatic Neck : supple, no JVD Heart:S1 and S2 reg, no murmurs, rubs or gallop Lungs: clear to auscultation bilaterally, no wheeze Abd: Soft , NT, non distended, normal bowel sounds Ext: No edema, no clubbing, no cyanosis Neuro: Awake,alert - Constitutional Vitals: Temp Pulse Resp BP Pulse Ox 98.3 F 98 H 17 102/69 96 01/17/21 10:07 01/17/21 10:07 01/17/21 10:07 01/17/21 10:07 01/17/21 10:07 General appearance: Present: no acute distress, well-nourished HEART Score - HEART Score Troponin: Troponin T < 0.010 ng/mL (0.00-0.029) 01/15/21 11:41 Results - Labs CBC & Chem 7: 01/16/21 02:12 01/17/21 15:12 Labs: Laboratory Last Values WBC 4.5 K/mm3 (4.5-11.0) 01/16/21 02:12 RBC 3.37 M/mm3 (3.65-5.03) L 01/16/21 02:12 Hgb 10.9 gm/dl (10.1-14.3) 01/16/21 02:12 Hct 32.0 % (30.3-42.9) 01/16/21 02:12 MCV 95 fl (79-97) 01/16/21 02:12 MCH 32 pg (28-32) 01/16/21 02:12 MCHC 34 % (30-34) 01/16/21 02:12 RDW 13.4 % (13.2-15.2) 01/16/21 02:12 Plt Count 209 K/mm3 (140-440) 01/16/21 02:12 Lymph % (Auto) 27.3 % (13.4-35.0) 01/15/21 02:32 Caroline % (Auto) 7.1 % (0.0-7.3) 01/15/21 02:32 Eos % (Auto) 0.2 % (0.0-4.3) 01/15/21 02:32 Baso % (Auto) 0.5 % (0.0-1.8) 01/15/21 02:32 Lymph # (Auto) 1.4 K/mm3 (1.2-5.4) 01/15/21 02:32 Caroline # (Auto) 0.4 K/mm3 (0.0-0.8) 01/15/21 02:32 Eos # (Auto) 0.0 K/mm3 (0.0-0.4) 01/15/21 02:32 Baso # (Auto) 0.0 K/mm3 (0.0-0.1) 01/15/21 02:32 Add Manual Diff Complete 01/16/21 02:12 Total Counted 100 01/16/21 02:12 Seg Neutrophils % 64.9 % (40.0-70.0) 01/15/21 02:32 Seg Neuts % (Manual) 77.0 % (40.0-70.0) H 01/16/21 02:12 Band Neutrophils % 1.0 % 01/16/21 02:12 Lymphocytes % (Manual) 15.0 % (13.4-35.0) 01/16/21 02:12 Monocytes % (Manual) 6.0 % (0.0-7.3) 01/16/21 02:12 Basophils % (Manual) 1.0 % (0.0-1.8) 01/16/21 02:12 Nucleated RBC % Not Reportable 01/16/21 02:12 Seg Neutrophils # 3.3 K/mm3 (1.8-7.7) 01/15/21 02:32 Seg Neutrophils # Man 3.5 K/mm3 (1.8-7.7) 01/16/21 02:12 Band Neutrophils # 0.0 K/mm3 01/16/21 02:12 Lymphocytes # (Manual) 0.7 K/mm3 (1.2-5.4) L 01/16/21 02:12 Abs React Lymphs (Man) 0.0 K/mm3 01/16/21 02:12 Monocytes # (Manual) 0.3 K/mm3 (0.0-0.8) 01/16/21 02:12 Eosinophils # (Manual) 0.0 K/mm3 (0.0-0.4) 01/16/21 02:12 Basophils # (Manual) 0.0 K/mm3 (0.0-0.1) 01/16/21 02:12 Metamyelocytes # 0.0 K/mm3 01/16/21 02:12 Myelocytes # 0.0 K/mm3 01/16/21 02:12 Promyelocytes # 0.0 K/mm3 01/16/21 02:12 Blast Cells # 0.0 K/mm3 01/16/21 02:12 WBC Morphology Not Reportable 01/16/21 02:12 Hypersegmented Neuts Not Reportable 01/16/21 02:12 Hyposegmented Neuts Not Reportable 01/16/21 02:12 Hypogranular Neuts Not Reportable 01/16/21 02:12 Smudge Cells Not Reportable 01/16/21 02:12 Toxic Granulation Not Reportable 01/16/21 02:12 Toxic Vacuolation Not Reportable 01/16/21 02:12 Dohle Bodies Not Reportable 01/16/21 02:12 Pelger-Huet Anomaly Not Reportable 01/16/21 02:12 Alonzo Rods Not Reportable 01/16/21 02:12 Platelet Estimate Consistent w auto 01/16/21 02:12 Clumped Platelets Not Reportable 01/16/21 02:12 Plt Clumps, EDTA Not Reportable 01/16/21 02:12 Large Platelets Not Reportable 01/16/21 02:12 Giant Platelets Not Reportable 01/16/21 02:12 Platelet Satelliting Not Reportable 01/16/21 02:12 Plt Morphology Comment Not Reportable 01/16/21 02:12 RBC Morphology Not Reportable 01/16/21 02:12 Dimorphic RBCs Not Reportable 01/16/21 02:12 Polychromasia Not Reportable 01/16/21 02:12 Hypochromasia Not Reportable 01/16/21 02:12 Poikilocytosis Not Reportable 01/16/21 02:12 Anisocytosis 1+ 01/16/21 02:12 Microcytosis Not Reportable 01/16/21 02:12 Macrocytosis Not Reportable 01/16/21 02:12 Spherocytes Not Reportable 01/16/21 02:12 Pappenheimer Bodies Not Reportable 01/16/21 02:12 Sickle Cells Not Reportable 01/16/21 02:12 Target Cells Not Reportable 01/16/21 02:12 Tear Drop Cells Not Reportable 01/16/21 02:12 Ovalocytes Not Reportable 01/16/21 02:12 Helmet Cells Not Reportable 01/16/21 02:12 [place] Buckle Bodies Not Reportable 01/16/21 02:12 [place] Rings Not Reportable 01/16/21 02:12 [place] Cells Not Reportable 01/16/21 02:12 Bite Cells Not Reportable 01/16/21 02:12 Crenated Cell Not Reportable 01/16/21 02:12 Elliptocytes Not Reportable 01/16/21 02:12 Acanthocytes (Spur) Not Reportable 01/16/21 02:12 Rouleaux Not Reportable 01/16/21 02:12 Hemoglobin C Crystals Not Reportable 01/16/21 02:12 Schistocytes Not Reportable 01/16/21 02:12 Malaria parasites Not Reportable 01/16/21 02:12 Calvin Bodies Not Reportable 01/16/21 02:12 Hem Pathologist Commnt No 01/16/21 02:12 PT 16.5 Sec. (12.2-14.9) H 01/16/21 02:12 INR 1.27 (0.87-1.13) H 01/16/21 02:12 APTT 26.4 Sec. (24.2-36.6) 01/15/21 02:32 D-Dimer 1101.34 ng/mlDDU (0-234) H 01/15/21 04:51 Sodium 134 mmol/L (137-145) L 01/16/21 02:12 Potassium 3.4 mmol/L (3.6-5.0) L D 01/16/21 02:12 Chloride 95.0 mmol/L (98-107) L 01/16/21 02:12 Carbon Dioxide 28 mmol/L (22-30) 01/16/21 02:12 Anion Gap 14 mmol/L 01/16/21 02:12 BUN 5 mg/dL (7-17) L 01/16/21 02:12 Creatinine 0.3 mg/dL (0.6-1.2) L 01/16/21 02:12 Estimated GFR > 60 ml/min 01/16/21 02:12 BUN/Creatinine Ratio 17 % 01/16/21 02:12 Glucose 81 mg/dL (65-100) 01/16/21 02:12 POC Glucose 91 mg/dL (70-105) 01/15/21 23:36 Lactic Acid 1.80 mmol/L (0.7-2.0) 01/15/21 02:32 Calcium 9.1 mg/dL (8.4-10.2) D 01/16/21 02:12 Phosphorus 2.30 mg/dL (2.5-4.5) L 01/15/21 02:32 Magnesium 1.80 mg/dL (1.7-2.3) 01/15/21 02:32 Ferritin 630.5 ng/mL (10.0-200.0) H 01/15/21 04:51 Total Bilirubin 1.50 mg/dL (0.1-1.2) H 01/15/21 04:51 Direct Bilirubin 0.6 mg/dL (0-0.2) H 01/15/21 02:32 Indirect Bilirubin 1.3 mg/dL 01/15/21 02:32 AST 20 units/L (5-40) 01/15/21 04:51 ALT 36 units/L (7-56) 01/15/21 04:51 Alkaline Phosphatase 69 units/L (35-129) 01/15/21 04:51 Lactate Dehydrogenase 141 units/L (91-180) 01/15/21 04:51 Troponin T < 0.010 ng/mL (0.00-0.029) 01/15/21 11:41 C-Reactive Protein 0.30 mg/dL (0.00-1.30) 01/15/21 04:51 Total Protein 5.9 g/dL (6.3-8.2) L 01/15/21 04:51 Albumin 3.1 g/dL (3.9-5) L 01/15/21 04:51 Albumin/Globulin Ratio 1.1 % 01/15/21 04:51 Lipase 66 units/L (13-60) H 01/15/21 02:32 Procalcitonin 11.57 ng/mL (<0.15) 01/15/21 04:51 Coronavirus (PCR) Negative (Negative) 01/15/21 08:15 Microbiology: Microbiology 01/15/21 02:32 Peripheral/Venous Blood Culture - Preliminary NO GROWTH AFTER 48 HOURS 01/15/21 02:26 Peripheral/Venous Blood Culture - Preliminary NO GROWTH AFTER 48 HOURS Ramirez/IV: Voiding Method Bedside Commode Active Medications - Current Medications Current Medications: Generic Name Dose Route Start Last Admin Trade Name Freq PRN Reason Stop Dose Admin Acetaminophen 650 mg 01/15/21 06:24 Acetaminophen 325 Mg Tab PO Q6H PRN Pain MILD(1-3)/Fever >100.5/ALMEIDA Heparin Sodium (Porcine) 5,000 unit 01/15/21 14:00 01/17/21 06:18 Heparin 5,000 Unit/1 Ml Vial SUB-Q 5,000 unit Q8HR AHSAN Administration Sodium Chloride 1,000 mls @ 125 mls/hr 01/15/21 06:30 01/17/21 06:19 Nacl 0.9% 1000 Ml IV 125 mls/hr DIRECT AHSAN Administration Magnesium Hydroxide 30 ml 01/15/21 06:24 Magnesium Hydroxide (Mom) Oral Liqd Udc PO Q4H PRN Constipation Morphine Sulfate 2 mg 01/15/21 06:24 Morphine 2 Mg/1 Ml Inj IV Q4H PRN Pain, Moderate (4-6) Morphine Sulfate 4 mg 01/15/21 06:24 Morphine 4 Mg/1 Ml Inj IV Q4H PRN Pain , Severe (7-10) Ondansetron HCl 4 mg 01/15/21 06:24 01/16/21 14:04 Ondansetron 4 Mg/2 Ml Inj IV 4 mg Q8H PRN Administration Nausea And Vomiting Sodium Chloride 10 ml 01/15/21 10:00 01/17/21 09:43 Sodium Chloride 0.9% 10 Ml Flush Syringe IV 10 ml BID AHSAN Administration Sodium Chloride 10 ml 01/15/21 06:24 Sodium Chloride 0.9% 10 Ml Flush Syringe IV PRN PRN LINE FLUSH Nutrition/Malnutrition Assess - Dietary Evaluation Nutrition/Malnutrition Findings: Nutrition Notes Start: 01/15/21 09:31 Freq: Status: Active Protocol: Document 01/16/21 12:14 (Rec: 01/16/21 12:25 [email or web address]) Nutrition Notes Need for Assessment generated from: analytics lead,MST Initial or Follow up Assessment Other Pertinent Diagnosis hx cervical and lung cancer, mass in lung, generalized weakness Current Diet regular Labs/Tests Na 134 K 3.4 Pertinent Medications Zofran NS at 125 ml/hr Height 5 ft 8 in Weight 63.503 kg Usual Body Weight 70.45 kg Keymar Body Weight (kg) 63.63 BMI 21.2 Weight change and time frame 9.8% wt loss in 3-4 months Weight Status Appropriate Subjective/Other Information RN screen for skin risk and MST. Pt relates wt loss to N/V for 4 months. She has been able to keep pudding and juice down, otherwise is throwing everything up. Food prefreneces noted. Pt has no wounds. Pt only wants to try 1 Ensure Clear per day. She's open to Ensure Enlive. Burn Absent Trauma Absent GI Symptoms Nausea,Vomiting Current % PO Negligible Minimum of two criteria Yes Energy Intake (severe) < or equal to 50% Estimated Energy Requirement > or equal to 5 days Interpretation of Weight Loss (severe) >7.5% in 3 months #2 Nutrition Diagnosis Malnutrition Etiology chronic illness As Evidenced by Signs and Symptoms <50% of EER in >5 days, >7.5% wt loss in 3 months #1 Nutrition Diagnosis Inadequate energy intake Comments: changed Etiology chronic illness As Evidenced by Signs and Symptoms N/V for 4 months Is patient on ventilator? No Is Patient Ambulatory and/or Out of Bed No REE-([facility] Je[facility]-confined to bed) 9314.660 Calculation Used for Recommendations [facility] Additional Notes Protein: (1.2-1.5g/kg) 76-95g Fluid: 1ml/kcal or per MD Nutrition Intervention Change Diet Order: Gi soft Add Supplement/Snack (indicate name/kcal Ensure Clear daily /protein ) Provides kCal: 240 Provides Protein (gm) 8 Goal #1 Meet at least 75% of energy and protein needs via PO and ONS Goal #2 Weight maintenance Anticipated Discharge Needs: regular Follow-Up By: 01/18/21 Additional Comments FU for intakes and ONS tolerance
[2021-01-17] MEDS ORDERED: BENZOCAINE/MENTHOL LOZENGE MM PRN (14:30)
[2021-01-17] MEDS: ONDANSETRON 4 MG/2 ML INJ IV PRN (15:03)
[2021-01-17 16:06] LABS: Alanine Aminotransferase 32 units/L (7-56); Albumin 3.5 g/dL (3.9-5); Blood Urea Nitrogen 2 mg/dL (7-17); Hemolysis Index 14
[2021-01-17 16:07] LABS: BUN/Creatinine Ratio 5
[2021-01-17] MEDS ORDERED: SODIUM PHOSPHATE 30 MMOL in SODIUM CHLORIDE 0.9% 500 ML 500 ML IV ONE (18:00)
[2021-01-17] MEDS ORDERED: MAGNESIUM SULFATE 2 GM/50 ML BAG IV ONE (19:00)
[2021-01-17] MEDS: POTASSIUM CHLORIDE 10 MEQ 10 MEQ/100 ML BAG IV SCH ×4 (20:00→23:18)
[2021-01-18] MEDS: HEPARIN 5,000 UNIT/1 ML VIAL SUB-Q SCH ×3 (05:12→23:04)
[2021-01-18 06:31] LABS: Hematocrit 31.2 % (30.3-42.9); Hemoglobin 10.4 gm/dl (10.1-14.3); Mean Corpuscular HGB Conc 33 % (30-34); Mean Corpuscular Volume 97 fl (79-97); Platelet Count 191 K/mm3 (140-440); Red Blood Count 3.21 M/mm3 (3.65-5.03); Red Cell Distribution Width 14.3 % (13.2-15.2)
[2021-01-18 06:47] LABS: Blood Urea Nitrogen 2 mg/dL (7-17); Calcium 7.8 mg/dL (8.4-10.2); Hemolysis Index 6
[2021-01-18 06:54] LABS: BUN/Creatinine Ratio 5
--- NOTE | 2021-01-18 08:58 | Progress Note ---
Assessment and Plan - Patient Problems (1) Abnormal finding on EKG Current Visit: Yes Status: Acute Plan to address problem: EKG in the emergency room showed normal sinus rhythm and QT prolongation Repeat ECG shows normal sinus rhythm and normal QT interval. Echocardiogram shows well-preserved left ventricular systolic function, EF 50- 55%. Conservative cardiac management. Subjective Date of service: 01/18/21 Interval history: Patient is resting in bed comfortably. Denies unusual shortness of breath, chest pain, and palpitations. Follow-up EKG shows that the QT prolongation has resolved. Objective Vital Signs Temp Pulse Pulse Resp BP Pulse Ox 01/18/21 07:41 98.3 F 107 H 16 100/69 100 01/18/21 04:13 98.3 F 114 H 24 101/65 95 01/17/21 23:44 98.0 F 101 H 20 104/70 100 01/17/21 22:00 102 H 102 H 18 98 01/17/21 19:34 98.0 F 103 H 18 103/72 99 01/17/21 16:35 98.2 F 95 H 18 98/68 97 01/17/21 12:51 98.1 F 105 H 18 111/76 100 01/17/21 10:07 98.3 F 98 H 17 102/69 96 01/17/21 10:00 98 - Physical Examination General: No Apparent Distress HEENT: Positive: PERRL Neck: Positive: neck supple Cardiac: Positive: Reg Rate and Rhythm Lungs: Positive: Decreased Breath Sounds Neuro: Positive: Grossly Intact Abdomen: Positive: Soft Skin: Positive: Clear Extremities: Absent: edema - Labs and Meds Cardiac Enzymes 01/17/21 Range/Units 15:12 AST 26 (5-40) units/L CBC 01/18/21 Range/Units 05:24 WBC 4.0 L (4.5-11.0) K/mm3 RBC 3.21 L (3.65-5.03) M/mm3 Hgb 10.4 (10.1-14.3) gm/dl Hct 31.2 (30.3-42.9) % Plt Count 191 (140-440) K/mm3 Comprehensive Metabolic Panel 01/17/21 01/18/21 Range/Units 15:12 05:24 Sodium 134 L 135 L (137-145) mmol/L Potassium 2.9 L* 3.1 L (3.6-5.0) mmol/L Chloride 96.1 L 100.8 (98-107) mmol/L Carbon Dioxide 25 21 L (22-30) mmol/L BUN 2 L 2 L (7-17) mg/dL Creatinine 0.4 L 0.4 L (0.6-1.2) mg/dL Glucose 100 91 (65-100) mg/dL Calcium 9.0 7.8 L (8.4-10.2) mg/dL AST 26 (5-40) units/L ALT 32 (7-56) units/L Alkaline Phosphatase 72 (35-129) units/L Total Protein 6.2 L (6.3-8.2) g/dL Albumin 3.5 L (3.9-5) g/dL
[2021-01-18] MEDS: POTASSIUM CHLORIDE 20 MEQ PACKET PO SCH ×2 (09:24→13:59)
[2021-01-18] MEDS ORDERED: MAGNESIUM SULFATE 4 GM/100 ML BAG IV ONE (09:30)
[2021-01-18] MEDS: SODIUM CHLORIDE 0.9% 1000 ML 1,000 ML IV SCH ×2 (09:41→18:28)
[2021-01-18] MEDS: POTASSIUM CHLORIDE 10 MEQ 10 MEQ/100 ML BAG IV SCH ×2 (09:43→09:44)
--- NOTE | 2021-01-18 10:23 | Electrocardiograph Report ---
[facility] Test Date: 2021-01-17 Test Time: 11:58:49 Pat Name: ORLY MOORE Department: Room: A474 1 Gender: F Car [employer]: TRINO : 1970 Requested By: ED CANTU Order Number: [id number] Reading MD: Diogo Vasquez Measurements Intervals [place] Rate: 103 P: 72 [place]: 151 QRS: 79 QRSD: 72 T: 81 QT: 357 QTc: 469 Interpretive Statements Sinus tachycardia Nonspecific T abnormalities, lateral leads Compared to ECG 01/16/2021 14:29:27 No significant change noted. Electronically Signed On 01-18-2021 10:23:18 EDT by Diogo Vasquez
--- NOTE | 2021-01-18 11:40 | Progress Note ---
Assessment and Plan Assessment and plan: Hypotension Hypokalemia Lung CA Cervical CA Cholelithiasis without acute cholecystitis Abnormal EKG/prolonged QT Elevated D-dimer 01/15/2021. This is a follow-up from an admission earlier this morning. Await cardiology consultation. Continue IV fluid hydration. Follow-up echocardiogram. 01/16/2021. Prolonged QT secondary to hypokalemia/hypocalcemia. Replace potassium and magnesium per cardiology recommendations. Correct hypocalcemia. Follow-up echocardiogram. COVID-19 negative. Patient with elevated D-dimer but CTA of chest also negative. Transfer to telemetry. 01/17/2021 Patient is 50 yo with lung cancer, cervical cancer. She also has prolonged QT interval. Cardiology following. QTc 465, improving. I discussed case with cardiology 01/18/2021 Patient is 50 yo with lung cancer, cervical cancer. She is followed at [place] and tells me she last saw her doctors last year. QT interval improving QT 357 and QTc 469 Patient also has hypokalemia, hypomagnesemia and hypophosphatemia. Will replete all and recheck. History Interval history: Generalized weakness Hospitalist Physical - Physical exam Narrative exam: Gen: Not in acute distress, lying in bed HEENT: Normocephalic, atraumatic Neck : supple, no JVD Heart:S1 and S2 reg, no murmurs, rubs or gallop Lungs: clear to auscultation bilaterally, no wheeze Abd: Soft , NT, non distended, normal bowel sounds Ext: No edema, no clubbing, no cyanosis Neuro: Awake,alert - Constitutional Vitals: Temp Pulse Resp BP Pulse Ox 98.3 F 109 H 16 89/64 100 01/18/21 11:17 01/18/21 11:17 01/18/21 11:17 01/18/21 11:17 01/18/21 11:17 General appearance: Present: no acute distress, well-nourished HEART Score - HEART Score Troponin: Troponin T < 0.010 ng/mL (0.00-0.029) 01/15/21 11:41 Results - Labs CBC & Chem 7: 01/18/21 05:24 01/18/21 05:24 Labs: Laboratory Last Values WBC 4.0 K/mm3 (4.5-11.0) L 01/18/21 05:24 RBC 3.21 M/mm3 (3.65-5.03) L 01/18/21 05:24 Hgb 10.4 gm/dl (10.1-14.3) 01/18/21 05:24 Hct 31.2 % (30.3-42.9) 01/18/21 05:24 MCV 97 fl (79-97) 01/18/21 05:24 MCH 32 pg (28-32) 01/18/21 05:24 MCHC 33 % (30-34) 01/18/21 05:24 RDW 14.3 % (13.2-15.2) 01/18/21 05:24 Plt Count 191 K/mm3 (140-440) 01/18/21 05:24 Lymph % (Auto) 27.3 % (13.4-35.0) 01/15/21 02:32 [place] % (Auto) 7.1 % (0.0-7.3) 01/15/21 02:32 Eos % (Auto) 0.2 % (0.0-4.3) 01/15/21 02:32 Baso % (Auto) 0.5 % (0.0-1.8) 01/15/21 02:32 Lymph # (Auto) 1.4 K/mm3 (1.2-5.4) 01/15/21 02:32 [place] # (Auto) 0.4 K/mm3 (0.0-0.8) 01/15/21 02:32 Eos # (Auto) 0.0 K/mm3 (0.0-0.4) 01/15/21 02:32 Baso # (Auto) 0.0 K/mm3 (0.0-0.1) 01/15/21 02:32 Add Manual Diff Complete 01/16/21 02:12 Total Counted 100 01/16/21 02:12 Seg Neutrophils % 64.9 % (40.0-70.0) 01/15/21 02:32 Seg Neuts % (Manual) 77.0 % (40.0-70.0) H 01/16/21 02:12 Band Neutrophils % 1.0 % 01/16/21 02:12 Lymphocytes % (Manual) 15.0 % (13.4-35.0) 01/16/21 02:12 Monocytes % (Manual) 6.0 % (0.0-7.3) 01/16/21 02:12 Basophils % (Manual) 1.0 % (0.0-1.8) 01/16/21 02:12 Nucleated RBC % Not Reportable 01/16/21 02:12 Seg Neutrophils # 3.3 K/mm3 (1.8-7.7) 01/15/21 02:32 Seg Neutrophils # Man 3.5 K/mm3 (1.8-7.7) 01/16/21 02:12 Band Neutrophils # 0.0 K/mm3 01/16/21 02:12 Lymphocytes # (Manual) 0.7 K/mm3 (1.2-5.4) L 01/16/21 02:12 Abs React Lymphs (Man) 0.0 K/mm3 01/16/21 02:12 Monocytes # (Manual) 0.3 K/mm3 (0.0-0.8) 01/16/21 02:12 Eosinophils # (Manual) 0.0 K/mm3 (0.0-0.4) 01/16/21 02:12 Basophils # (Manual) 0.0 K/mm3 (0.0-0.1) 01/16/21 02:12 Metamyelocytes # 0.0 K/mm3 01/16/21 02:12 Myelocytes # 0.0 K/mm3 01/16/21 02:12 Promyelocytes # 0.0 K/mm3 01/16/21 02:12 Blast Cells # 0.0 K/mm3 01/16/21 02:12 WBC Morphology Not Reportable 01/16/21 02:12 Hypersegmented Neuts Not Reportable 01/16/21 02:12 Hyposegmented Neuts Not Reportable 01/16/21 02:12 Hypogranular Neuts Not Reportable 01/16/21 02:12 Smudge Cells Not Reportable 01/16/21 02:12 Toxic Granulation Not Reportable 01/16/21 02:12 Toxic Vacuolation Not Reportable 01/16/21 02:12 Dohle Bodies Not Reportable 01/16/21 02:12 Pelger-Huet Anomaly Not Reportable 01/16/21 02:12 Alonzo Rods Not Reportable 01/16/21 02:12 Platelet Estimate Consistent w auto 01/16/21 02:12 Clumped Platelets Not Reportable 01/16/21 02:12 Plt Clumps, EDTA Not Reportable 01/16/21 02:12 Large Platelets Not Reportable 01/16/21 02:12 Giant Platelets Not Reportable 01/16/21 02:12 Platelet Satelliting Not Reportable 01/16/21 02:12 Plt Morphology Comment Not Reportable 01/16/21 02:12 RBC Morphology Not Reportable 01/16/21 02:12 Dimorphic RBCs Not Reportable 01/16/21 02:12 Polychromasia Not Reportable 01/16/21 02:12 Hypochromasia Not Reportable 01/16/21 02:12 Poikilocytosis Not Reportable 01/16/21 02:12 Anisocytosis 1+ 01/16/21 02:12 Microcytosis Not Reportable 01/16/21 02:12 Macrocytosis Not Reportable 01/16/21 02:12 Spherocytes Not Reportable 01/16/21 02:12 Pappenheimer Bodies Not Reportable 01/16/21 02:12 Sickle Cells Not Reportable 01/16/21 02:12 Target Cells Not Reportable 01/16/21 02:12 Tear Drop Cells Not Reportable 01/16/21 02:12 Ovalocytes Not Reportable 01/16/21 02:12 Helmet Cells Not Reportable 01/16/21 02:12 [place] Bodies Not Reportable 01/16/21 02:12 [place] Rings Not Reportable 01/16/21 02:12 [place] Cells Not Reportable 01/16/21 02:12 Bite Cells Not Reportable 01/16/21 02:12 Crenated Cell Not Reportable 01/16/21 02:12 Elliptocytes Not Reportable 01/16/21 02:12 Acanthocytes (Spur) Not Reportable 01/16/21 02:12 Rouleaux Not Reportable 01/16/21 02:12 Hemoglobin C Crystals Not Reportable 01/16/21 02:12 Schistocytes Not Reportable 01/16/21 02:12 Malaria parasites Not Reportable 01/16/21 02:12 Calvin Bodies Not Reportable 01/16/21 02:12 Hem Pathologist Commnt No 01/16/21 02:12 PT 16.5 Sec. (12.2-14.9) H 01/16/21 02:12 INR 1.27 (0.87-1.13) H 01/16/21 02:12 APTT 26.4 Sec. (24.2-36.6) 01/15/21 02:32 D-Dimer 1101.34 ng/mlDDU (0-234) H 01/15/21 04:51 Sodium 135 mmol/L (137-145) L 01/18/21 05:24 Potassium 3.1 mmol/L (3.6-5.0) L 01/18/21 05:24 Chloride 100.8 mmol/L (98-107) 01/18/21 05:24 Carbon Dioxide 21 mmol/L (22-30) L 01/18/21 05:24 Anion Gap 16 mmol/L 01/18/21 05:24 BUN 2 mg/dL (7-17) L 01/18/21 05:24 Creatinine 0.4 mg/dL (0.6-1.2) L 01/18/21 05:24 Estimated GFR > 60 ml/min 01/18/21 05:24 BUN/Creatinine Ratio 5 % 01/18/21 05:24 Glucose 91 mg/dL (65-100) 01/18/21 05:24 POC Glucose 83 mg/dL (70-105) 01/17/21 21:22 Lactic Acid 1.80 mmol/L (0.7-2.0) 01/15/21 02:32 Calcium 7.8 mg/dL (8.4-10.2) L 01/18/21 05:24 Phosphorus 3.10 mg/dL (2.5-4.5) D 01/18/21 05:24 Magnesium 1.60 mg/dL (1.7-2.3) L 01/18/21 05:24 Ferritin 630.5 ng/mL (10.0-200.0) H 01/15/21 04:51 Total Bilirubin 1.50 mg/dL (0.1-1.2) H 01/17/21 15:12 Direct Bilirubin 0.6 mg/dL (0-0.2) H 01/15/21 02:32 Indirect Bilirubin 1.3 mg/dL 01/15/21 02:32 AST 26 units/L (5-40) 01/17/21 15:12 ALT 32 units/L (7-56) 01/17/21 15:12 Alkaline Phosphatase 72 units/L (35-129) 01/17/21 15:12 Lactate Dehydrogenase 141 units/L (91-180) 01/15/21 04:51 Troponin T < 0.010 ng/mL (0.00-0.029) 01/15/21 11:41 C-Reactive Protein 0.30 mg/dL (0.00-1.30) 01/15/21 04:51 Total Protein 6.2 g/dL (6.3-8.2) L 01/17/21 15:12 Albumin 3.5 g/dL (3.9-5) L 01/17/21 15:12 Albumin/Globulin Ratio 1.3 % 01/17/21 15:12 Lipase 66 units/L (13-60) H 01/15/21 02:32 Procalcitonin 11.57 ng/mL (<0.15) 01/15/21 04:51 Coronavirus (PCR) Negative (Negative) 01/15/21 08:15 Microbiology: Microbiology 01/15/21 02:32 Peripheral/Venous Blood Culture - Preliminary NO GROWTH AFTER 72 HOURS 01/15/21 02:26 Peripheral/Venous Blood Culture - Preliminary NO GROWTH AFTER 72 HOURS Ramirez/IV: Voiding Method Bedside Commode Active Medications - Current Medications Current Medications: Generic Name Dose Route Start Last Admin Trade Name Freq PRN Reason Stop Dose Admin Acetaminophen 650 mg 01/15/21 06:24 Acetaminophen 325 Mg Tab PO Q6H PRN Pain MILD(1-3)/Fever >100.5/ALMEIDA Benzocaine/Menthol 1 each 01/17/21 14:30 01/17/21 16:19 Benzocaine/Menthol Lozenge MM 1 each Q2HR PRN Administration Sore Throat Heparin Sodium (Porcine) 5,000 unit 01/15/21 14:00 01/18/21 05:12 Heparin 5,000 Unit/1 Ml Vial SUB-Q 5,000 unit Q8HR AHSAN Administration Sodium Chloride 1,000 mls @ 125 mls/hr 01/15/21 06:30 01/18/21 09:41 Nacl 0.9% 1000 Ml IV 125 mls/hr DIRECT AHSAN Administration Magnesium Sulfate 4 gm in 100 mls @ 25 mls/hr 01/18/21 09:30 01/18/21 09:24 Magnesium Sulfate 4gm/100ml IV 01/18/21 13:29 25 mls/hr ONCE ONE Administration Magnesium Hydroxide 30 ml 01/15/21 06:24 Magnesium Hydroxide (Mom) Oral Liqd Udc PO Q4H PRN Constipation Morphine Sulfate 2 mg 01/15/21 06:24 Morphine 2 Mg/1 Ml Inj IV Q4H PRN Pain, Moderate (4-6) Morphine Sulfate 4 mg 01/15/21 06:24 Morphine 4 Mg/1 Ml Inj IV Q4H PRN Pain , Severe (7-10) Ondansetron HCl 4 mg 01/15/21 06:24 01/17/21 15:03 Ondansetron 4 Mg/2 Ml Inj IV 4 mg Q8H PRN Administration Nausea And Vomiting Potassium Chloride 40 meq 01/18/21 09:00 01/18/21 09:24 Potassium Chloride 20 Meq Packet PO 01/18/21 15:01 40 meq Q6H AHSAN Administration Sodium Chloride 10 ml 01/15/21 10:00 01/18/21 09:24 Sodium Chloride 0.9% 10 Ml Flush Syringe IV 10 ml BID AHSAN Administration Sodium Chloride 10 ml 01/15/21 06:24 Sodium Chloride 0.9% 10 Ml Flush Syringe IV PRN PRN LINE FLUSH Nutrition/Malnutrition Assess - Dietary Evaluation Nutrition/Malnutrition Findings: Nutrition Notes Start: 01/15/21 09:31 Freq: Status: Active Protocol: Document 01/16/21 12:14 (Rec: 01/16/21 12:25 [id number]) Nutrition Notes Need for Assessment generated from: rock splitter,MST Initial or Follow up Assessment Other Pertinent Diagnosis hx cervical and lung cancer, mass in lung, generalized weakness Current Diet regular Labs/Tests Na 134 K 3.4 Pertinent Medications Zofran NS at 125 ml/hr Height 5 ft 8 in Weight 63.503 kg Usual Body Weight 70.45 kg [place] Body Weight (kg) 63.63 BMI 21.2 Weight change and time frame 9.8% wt loss in 3-4 months Weight Status Appropriate Subjective/Other Information RN screen for skin risk and MST. Pt relates wt loss to N/V for 4 months. She has been able to keep pudding and juice down, otherwise is throwing everything up. Food prefreneces noted. Pt has no wounds. Pt only wants to try 1 Ensure Clear per day. She's open to Ensure Enlive. Burn Absent Trauma Absent GI Symptoms Nausea,Vomiting Current % PO Negligible Minimum of two criteria Yes Energy Intake (severe) < or equal to 50% Estimated Energy Requirement > or equal to 5 days Interpretation of Weight Loss (severe) >7.5% in 3 months #2 Nutrition Diagnosis Malnutrition Etiology chronic illness As Evidenced by Signs and Symptoms <50% of EER in >5 days, >7.5% wt loss in 3 months #1 Nutrition Diagnosis Inadequate energy intake Comments: changed Etiology chronic illness As Evidenced by Signs and Symptoms N/V for 4 months Is patient on ventilator? No Is Patient Ambulatory and/or Out of Bed No REE-([facility]-confined to bed) [phone] Calculation Used for Recommendations [facility] Additional Notes Protein: (1.2-1.5g/kg) 76-95g Fluid: 1ml/kcal or per MD Nutrition Intervention Change Diet Order: Gi soft Add Supplement/Snack (indicate name/kcal Ensure Clear daily /protein ) Provides kCal: 240 Provides Protein (gm) 8 Goal #1 Meet at least 75% of energy and protein needs via PO and ONS Goal #2 Weight maintenance Anticipated Discharge Needs: regular Follow-Up By: 01/18/21 Additional Comments FU for intakes and ONS tolerance
[2021-01-18] MEDS: ONDANSETRON 4 MG/2 ML INJ IV PRN (13:57)
[2021-01-19] MEDS: SODIUM CHLORIDE 0.9% 1000 ML 1,000 ML IV SCH (05:52)
[2021-01-19] MEDS: HEPARIN 5,000 UNIT/1 ML VIAL SUB-Q SCH ×3 (05:57→22:04)
[2021-01-19 06:42] LABS: Hematocrit 28.6 % (30.3-42.9); Hemoglobin 9.7 gm/dl (10.1-14.3); Mean Corpuscular HGB Conc 34 % (30-34); Mean Corpuscular Volume 94 fl (79-97); Platelet Count 207 K/mm3 (140-440); Red Blood Count 3.03 M/mm3 (3.65-5.03); Red Cell Distribution Width 13.4 % (13.2-15.2)
[2021-01-19 06:55] LABS: Blood Urea Nitrogen 2 mg/dL (7-17); Calcium 7.9 mg/dL (8.4-10.2); Hemolysis Index 3
[2021-01-19 07:19] LABS: BUN/Creatinine Ratio 5
[2021-01-19] MEDS ORDERED: SODIUM PHOSPHATE 30 MMOL in SODIUM CHLORIDE 0.9% 500 ML 500 ML IV ONE (09:00)
[2021-01-19] MEDS ORDERED: MAGNESIUM SULFATE 3 GM in SODIUM CHLORIDE 0.9% 100 ML IV ONE (09:00)
--- NOTE | 2021-01-19 09:02 | Progress Note ---
Assessment and Plan - Patient Problems (1) Abnormal finding on EKG Current Visit: Yes Status: Acute Plan to address problem: EKG in the emergency room showed normal sinus rhythm and QT prolongation Repeat ECG shows normal sinus rhythm and normal QT interval. Echocardiogram shows well-preserved left ventricular systolic function, EF 50- 55%. Conservative cardiac management. Subjective Date of service: 01/19/21 Interval history: Patient is resting in bed comfortably. No cardiac complaints. Objective Vital Signs Temp Pulse Pulse Resp BP Pulse Ox 01/19/21 03:42 97.3 F L 99 H 18 90/47 100 01/18/21 23:05 98.3 F 97 H 18 95/62 99 01/18/21 22:00 96 01/18/21 20:03 98.7 F 102 H 18 102/65 99 01/18/21 15:27 98.0 F 107 H 20 98/65 99 01/18/21 11:17 98.3 F 109 H 16 89/64 100 01/18/21 10:00 100 H 18 98 - Physical Examination General: No Apparent Distress HEENT: Positive: PERRL Neck: Positive: neck supple Cardiac: Positive: Reg Rate and Rhythm Lungs: Positive: Decreased Breath Sounds Neuro: Positive: Grossly Intact, Weakness Abdomen: Positive: Soft Extremities: Absent: edema - Labs and Meds CBC 01/19/21 Range/Units 05:07 WBC 4.7 (4.5-11.0) K/mm3 RBC 3.03 L (3.65-5.03) M/mm3 Hgb 9.7 L (10.1-14.3) gm/dl Hct 28.6 L (30.3-42.9) % Plt Count 207 (140-440) K/mm3 Comprehensive Metabolic Panel 01/19/21 Range/Units 05:07 Sodium 134 L (137-145) mmol/L Potassium 3.7 (3.6-5.0) mmol/L Chloride 102.5 (98-107) mmol/L Carbon Dioxide 20 L (22-30) mmol/L BUN 2 L (7-17) mg/dL Creatinine 0.4 L (0.6-1.2) mg/dL Glucose 71 (65-100) mg/dL Calcium 7.9 L (8.4-10.2) mg/dL
--- NOTE | 2021-01-19 11:45 | Progress Note ---
Assessment and Plan Assessment and plan: Hypotension Hypokalemia Lung CA Cervical CA Cholelithiasis without acute cholecystitis Abnormal EKG/prolonged QT Elevated D-dimer 01/15/2021. This is a follow-up from an admission earlier this morning. Await cardiology consultation. Continue IV fluid hydration. Follow-up echocardiogram. 01/16/2021. Prolonged QT secondary to hypokalemia/hypocalcemia. Replace potassium and magnesium per cardiology recommendations. Correct hypocalcemia. Follow-up echocardiogram. COVID-19 negative. Patient with elevated D-dimer but CTA of chest also negative. Transfer to telemetry. 01/17/2021 Patient is 50 yo with lung cancer, cervical cancer. She also has prolonged QT interval. Cardiology following. QTc 465, improving. I discussed case with cardiology 01/18/2021 Patient is 50 yo with lung cancer, cervical cancer. She is followed at [place] and tells me she last saw her doctors last year. QT interval improving QT 357 and QTc 469 Patient also has hypokalemia, hypomagnesemia and hypophosphatemia. Will replete all and recheck. 01/19/2021 Patient is 50 yo with lung cancer. Hypokalemia resolved. Phosphorus level still low. Patient has gallstones and was asking if it needs to be removed. Nausea, vomited 2 times yesterday. GI consulted. History Interval history: Generalized weakness Nausea and vomiting Hospitalist Physical - Physical exam Narrative exam: Gen: Not in acute distress, lying in bed HEENT: Normocephalic, atraumatic Neck : supple, no JVD Heart:S1 and S2 reg, no murmurs, rubs or gallop Lungs: clear to auscultation bilaterally, no wheeze Abd: Soft , NT, non distended, normal bowel sounds Ext: No edema, no clubbing, no cyanosis Neuro: Awake,alert - Constitutional Vitals: Temp Pulse Resp BP Pulse Ox 97.3 F L 99 H 18 90/47 100 01/19/21 03:42 01/19/21 03:42 01/19/21 03:42 01/19/21 03:42 01/19/21 03:42 General appearance: Present: no acute distress HEART Score - HEART Score Troponin: Troponin T < 0.010 ng/mL (0.00-0.029) 01/15/21 11:41 Results - Labs CBC & Chem 7: 01/19/21 05:07 01/19/21 05:07 Labs: Laboratory Last Values WBC 4.7 K/mm3 (4.5-11.0) 01/19/21 05:07 RBC 3.03 M/mm3 (3.65-5.03) L 01/19/21 05:07 Hgb 9.7 gm/dl (10.1-14.3) L 01/19/21 05:07 Hct 28.6 % (30.3-42.9) L 01/19/21 05:07 MCV 94 fl (79-97) 01/19/21 05:07 MCH 32 pg (28-32) 01/19/21 05:07 MCHC 34 % (30-34) 01/19/21 05:07 RDW 13.4 % (13.2-15.2) 01/19/21 05:07 Plt Count 207 K/mm3 (140-440) 01/19/21 05:07 Lymph % (Auto) 27.3 % (13.4-35.0) 01/15/21 02:32 [place] % (Auto) 7.1 % (0.0-7.3) 01/15/21 02:32 Eos % (Auto) 0.2 % (0.0-4.3) 01/15/21 02:32 Baso % (Auto) 0.5 % (0.0-1.8) 01/15/21 02:32 Lymph # (Auto) 1.4 K/mm3 (1.2-5.4) 01/15/21 02:32 [place] # (Auto) 0.4 K/mm3 (0.0-0.8) 01/15/21 02:32 Eos # (Auto) 0.0 K/mm3 (0.0-0.4) 01/15/21 02:32 Baso # (Auto) 0.0 K/mm3 (0.0-0.1) 01/15/21 02:32 Add Manual Diff Complete 01/16/21 02:12 Total Counted 100 01/16/21 02:12 Seg Neutrophils % 64.9 % (40.0-70.0) 01/15/21 02:32 Seg Neuts % (Manual) 77.0 % (40.0-70.0) H 01/16/21 02:12 Band Neutrophils % 1.0 % 01/16/21 02:12 Lymphocytes % (Manual) 15.0 % (13.4-35.0) 01/16/21 02:12 Monocytes % (Manual) 6.0 % (0.0-7.3) 01/16/21 02:12 Basophils % (Manual) 1.0 % (0.0-1.8) 01/16/21 02:12 Nucleated RBC % Not Reportable 01/16/21 02:12 Seg Neutrophils # 3.3 K/mm3 (1.8-7.7) 01/15/21 02:32 Seg Neutrophils # Man 3.5 K/mm3 (1.8-7.7) 01/16/21 02:12 Band Neutrophils # 0.0 K/mm3 01/16/21 02:12 Lymphocytes # (Manual) 0.7 K/mm3 (1.2-5.4) L 01/16/21 02:12 Abs React Lymphs (Man) 0.0 K/mm3 01/16/21 02:12 Monocytes # (Manual) 0.3 K/mm3 (0.0-0.8) 01/16/21 02:12 Eosinophils # (Manual) 0.0 K/mm3 (0.0-0.4) 01/16/21 02:12 Basophils # (Manual) 0.0 K/mm3 (0.0-0.1) 01/16/21 02:12 Metamyelocytes # 0.0 K/mm3 01/16/21 02:12 Myelocytes # 0.0 K/mm3 01/16/21 02:12 Promyelocytes # 0.0 K/mm3 01/16/21 02:12 Blast Cells # 0.0 K/mm3 01/16/21 02:12 WBC Morphology Not Reportable 01/16/21 02:12 Hypersegmented Neuts Not Reportable 01/16/21 02:12 Hyposegmented Neuts Not Reportable 01/16/21 02:12 Hypogranular Neuts Not Reportable 01/16/21 02:12 Smudge Cells Not Reportable 01/16/21 02:12 Toxic Granulation Not Reportable 01/16/21 02:12 Toxic Vacuolation Not Reportable 01/16/21 02:12 Dohle Bodies Not Reportable 01/16/21 02:12 Pelger-[place]uet Anomaly Not Reportable 01/16/21 02:12 Alonzo Rods Not Reportable 01/16/21 02:12 Platelet Estimate Consistent w auto 01/16/21 02:12 Clumped Platelets Not Reportable 01/16/21 02:12 Plt Clumps, EDTA Not Reportable 01/16/21 02:12 Large Platelets Not Reportable 01/16/21 02:12 Giant Platelets Not Reportable 01/16/21 02:12 Platelet Satelliting Not Reportable 01/16/21 02:12 Plt Morphology Comment Not Reportable 01/16/21 02:12 RBC Morphology Not Reportable 01/16/21 02:12 Dimorphic RBCs Not Reportable 01/16/21 02:12 Polychromasia Not Reportable 01/16/21 02:12 Hypochromasia Not Reportable 01/16/21 02:12 Poikilocytosis Not Reportable 01/16/21 02:12 Anisocytosis 1+ 01/16/21 02:12 Microcytosis Not Reportable 01/16/21 02:12 Macrocytosis Not Reportable 01/16/21 02:12 Spherocytes Not Reportable 01/16/21 02:12 Pappenheimer Bodies Not Reportable 01/16/21 02:12 Sickle Cells Not Reportable 01/16/21 02:12 Target Cells Not Reportable 01/16/21 02:12 Tear Drop Cells Not Reportable 01/16/21 02:12 Ovalocytes Not Reportable 01/16/21 02:12 Helmet Cells Not Reportable 01/16/21 02:12 [place] Bodies Not Reportable 01/16/21 02:12 [place] Rings Not Reportable 01/16/21 02:12 [place] Cells Not Reportable 01/16/21 02:12 Bite Cells Not Reportable 01/16/21 02:12 Crenated Cell Not Reportable 01/16/21 02:12 Elliptocytes Not Reportable 01/16/21 02:12 Acanthocytes (Spur) Not Reportable 01/16/21 02:12 Rouleaux Not Reportable 01/16/21 02:12 Hemoglobin C Crystals Not Reportable 01/16/21 02:12 Schistocytes Not Reportable 01/16/21 02:12 Malaria parasites Not Reportable 01/16/21 02:12 Calvin Bodies Not Reportable 01/16/21 02:12 Hem Pathologist Commnt No 01/16/21 02:12 PT 16.5 Sec. (12.2-14.9) H 01/16/21 02:12 INR 1.27 (0.87-1.13) H 01/16/21 02:12 APTT 26.4 Sec. (24.2-36.6) 01/15/21 02:32 D-Dimer 1101.34 ng/mlDDU (0-234) H 01/15/21 04:51 Sodium 134 mmol/L (137-145) L 01/19/21 05:07 Potassium 3.7 mmol/L (3.6-5.0) 01/19/21 05:07 Chloride 102.5 mmol/L (98-107) 01/19/21 05:07 Carbon Dioxide 20 mmol/L (22-30) L 01/19/21 05:07 Anion Gap 15 mmol/L 01/19/21 05:07 BUN 2 mg/dL (7-17) L 01/19/21 05:07 Creatinine 0.4 mg/dL (0.6-1.2) L 01/19/21 05:07 Estimated GFR > 60 ml/min 01/19/21 05:07 BUN/Creatinine Ratio 5 % 01/19/21 05:07 Glucose 71 mg/dL (65-100) 01/19/21 05:07 POC Glucose 78 mg/dL (70-105) 01/19/21 11:22 Lactic Acid 1.80 mmol/L (0.7-2.0) 01/15/21 02:32 Calcium 7.9 mg/dL (8.4-10.2) L 01/19/21 05:07 Phosphorus 2.40 mg/dL (2.5-4.5) L D 01/19/21 05:07 Magnesium 1.90 mg/dL (1.7-2.3) 01/19/21 05:07 Ferritin 630.5 ng/mL (10.0-200.0) H 01/15/21 04:51 Total Bilirubin 1.50 mg/dL (0.1-1.2) H 01/17/21 15:12 Direct Bilirubin 0.6 mg/dL (0-0.2) H 01/15/21 02:32 Indirect Bilirubin 1.3 mg/dL 01/15/21 02:32 AST 26 units/L (5-40) 01/17/21 15:12 ALT 32 units/L (7-56) 01/17/21 15:12 Alkaline Phosphatase 72 units/L (35-129) 01/17/21 15:12 Lactate Dehydrogenase 141 units/L (91-180) 01/15/21 04:51 Troponin T < 0.010 ng/mL (0.00-0.029) 01/15/21 11:41 C-Reactive Protein 0.30 mg/dL (0.00-1.30) 01/15/21 04:51 Total Protein 6.2 g/dL (6.3-8.2) L 01/17/21 15:12 Albumin 3.5 g/dL (3.9-5) L 01/17/21 15:12 Albumin/Globulin Ratio 1.3 % 01/17/21 15:12 Lipase 66 units/L (13-60) H 01/15/21 02:32 Procalcitonin 11.57 ng/mL (<0.15) 01/15/21 04:51 Coronavirus (PCR) Negative (Negative) 01/15/21 08:15 Microbiology: Microbiology 01/17/21 09:30 Urine,Clean Catch Urine Culture - Preliminary 01/15/21 02:32 Peripheral/Venous Blood Culture - Preliminary NO GROWTH AFTER 4 DAYS 01/15/21 02:26 Peripheral/Venous Blood Culture - Preliminary NO GROWTH AFTER 4 DAYS Ramirez/IV: Voiding Method Bedside Commode Active Medications - Current Medications Current Medications: Generic Name Dose Route Start Last Admin Trade Name Freq PRN Reason Stop Dose Admin Acetaminophen 650 mg 01/15/21 06:24 Acetaminophen 325 Mg Tab PO Q6H PRN Pain MILD(1-3)/Fever >100.5/ALMEIDA Benzocaine/Menthol 1 each 01/17/21 14:30 01/17/21 16:19 Benzocaine/Menthol Lozenge MM 1 each Q2HR PRN Administration Sore Throat Heparin Sodium (Porcine) 5,000 unit 01/15/21 14:00 01/19/21 05:57 Heparin 5,000 Unit/1 Ml Vial SUB-Q 5,000 unit Q8HR AHSAN Administration Sodium Chloride 1,000 mls @ 125 mls/hr 01/15/21 06:30 01/19/21 05:52 Nacl 0.9% 1000 Ml IV 125 mls/hr DIRECT AHSAN Administration Magnesium Sulfate 3 gm/ Sodium 106 mls @ 35.333 mls/hr 01/19/21 09:00 01/19/21 11:27 Chloride IV 01/19/21 11:59 35.333 mls/hr ONCE ONE Administration Sodium Phosphate 30 mmol/ 510 mls @ 125 mls/hr 01/19/21 09:00 01/19/21 11:27 Sodium Chloride IV 01/19/21 13:04 125 mls/hr ONCE ONE Administration Magnesium Hydroxide 30 ml 01/15/21 06:24 Magnesium Hydroxide (Mom) Oral Liqd Udc PO Q4H PRN Constipation Morphine Sulfate 2 mg 01/15/21 06:24 Morphine 2 Mg/1 Ml Inj IV Q4H PRN Pain, Moderate (4-6) Morphine Sulfate 4 mg 01/15/21 06:24 Morphine 4 Mg/1 Ml Inj IV Q4H PRN Pain , Severe (7-10) Ondansetron HCl 4 mg 01/15/21 06:24 01/18/21 13:57 Ondansetron 4 Mg/2 Ml Inj IV 4 mg Q8H PRN Administration Nausea And Vomiting Sodium Chloride 10 ml 01/15/21 10:00 01/19/21 11:28 Sodium Chloride 0.9% 10 Ml Flush Syringe IV 10 ml BID AHSAN Administration Sodium Chloride 10 ml 01/15/21 06:24 Sodium Chloride 0.9% 10 Ml Flush Syringe IV PRN PRN LINE FLUSH Nutrition/Malnutrition Assess - Dietary Evaluation Nutrition/Malnutrition Findings: Nutrition Notes Start: 01/15/21 09:31 Freq: Status: Active Protocol: Document 01/18/21 13:08 DUNG (Rec: 01/18/21 13:09 DUNG [id number]) Nutrition Notes Initial or Follow up Brief Note Other Pertinent Diagnosis hx cervical and lung cancer, mass in lung, generalized weakness Current Diet regular Height 5 ft 8 in Weight 63.2 kg [place] Body Weight (kg) 63.63 BMI 21.2 Subjective/Other Information Pt drinking some of the Ensure Enlives. She doesn't like Ensure Clears. Pt eating <10% of meals. Percent of energy/protein needs met: negligible Current % PO Negligible Is patient on ventilator? No Is Patient Ambulatory and/or Out of Bed No REE-([facility]-confined to bed) [phone] Calculation Used for Recommendations [facility] Additional Notes Protein: (1.2-1.5g/kg) 76-95g Fluid: 1ml/kcal or per MD Nutrition Intervention Add Supplement/Snack (indicate name/kcal Ensure Enlive BID /protein ) Provides kCal: 700 Provides Protein (gm) 40 Goal #1 Meet at least 75% of energy and protein needs via PO and ONS Goal #2 Weight maintenance Follow-Up By: 01/20/21 Additional Comments FU for intakes and ONS tolerance
[2021-01-19] MEDS: D5W/0.9% NACL 1,000 ML IV SCH (22:12)
[2021-01-19] MEDS: ONDANSETRON 4 MG/2 ML INJ IV PRN (22:12)
[2021-01-20] MEDS: HEPARIN 5,000 UNIT/1 ML VIAL SUB-Q SCH ×3 (05:51→21:17)
[2021-01-20] MEDS: D5W/0.9% NACL 1,000 ML IV SCH ×2 (05:54→17:26)
--- NOTE | 2021-01-20 07:44 | Consultation ---
DATE OF CONSULTATION: 01/19/2021 REFERRING PHYSICIAN: Mmeo Guy MD INDICATION: Nausea and vomiting. HISTORY OF PRESENT ILLNESS: The patient is a 50-year-old black female with history of cervical and lung cancer in remission, presents now for general weakness. The patient reports over the last 2 months, she has had recurrent nausea and vomiting. She reports it occurs after eating. She reports about 4-5 episodes per day with some epigastric discomfort. She denies any sick contacts. Mild weight loss. Denies any bowel changes. The patient subsequently was admitted and GI consulted. PAST MEDICAL HISTORY: Lung and cervical cancer. MEDICATIONS: Reviewed and updated in chart. ALLERGIES: No known drug allergies. SOCIAL HISTORY: Denies alcohol, tobacco or drug abuse. FAMILY HISTORY: No history of colon cancer, IBD, or liver disease. REVIEW OF SYSTEMS: GENERAL: Positive weakness. HEENT: Denies visual complaints or tinnitus. PULMONARY: Denies shortness of breath or chest pain. GASTROINTESTINAL: Reports nausea and vomiting. All other points of a 13-point review of systems otherwise negative. PHYSICAL EXAMINATION: VITAL SIGNS: Temperature of 97.9, pulse 96, respirations 18, blood pressure 100/60. GENERAL: Fairly thin female, in no acute distress. HEENT: Pupils equal, round and reactive. PULMONARY: Rhonchi. CARDIOVASCULAR: Regular rate and rhythm. Normal S1, S2. ABDOMEN: Positive bowel sounds. SKIN: No obvious rashes. LABORATORY DATA: Pertinent for white count of 4.7, hemoglobin and hematocrit of 9.7 and 28.6, platelet count 207. Chem-7 within normal limits. LFTs within normal limits. CT scan abdomen and pelvis with contrast on 01/15/2021 showed cholelithiasis without evidence of acute cholecystitis. ASSESSMENT AND PLAN: A 50-year-old female with history of lung and cervical cancer in the past, now with 2 months of nausea and vomiting. CT imaging did show signs of gallstones without signs of gallbladder disease. Possibility of gallbladder related versus stomach including gastritis versus peptic ulcer disease versus other. PLAN: 1. We will review imaging including CT scan. 2. The patient with hyperkalemia and we would recommend adjustment per primary team. 3. HIDA scan to rule out gallbladder disease. 4. Consider endoscope based on progress. 5. Antiemetics and pain medications per primary team. 6. We will follow. TID: [id number] RECEIPT: [id number] MUNA/ANA/EUGENIO
--- NOTE | 2021-01-20 12:02 | Progress Note ---
Assessment and Plan Assessment and plan: Hypotension Hypokalemia Lung CA Cervical CA Cholelithiasis without acute cholecystitis Abnormal EKG/prolonged QT Elevated D-dimer 01/15/2021. This is a follow-up from an admission earlier this morning. Await cardiology consultation. Continue IV fluid hydration. Follow-up echocardiogram. 01/16/2021. Prolonged QT secondary to hypokalemia/hypocalcemia. Replace potassium and magnesium per cardiology recommendations. Correct hypocalcemia. Follow-up echocardiogram. COVID-19 negative. Patient with elevated D-dimer but CTA of chest also negative. Transfer to telemetry. 01/17/2021 Patient is 50 yo with cervical cancer, lung cancer. She also has prolonged QT interval. Cardiology following. QTc 465, improving. I discussed case with cardiology 01/18/2021 Patient is 50 yo with cervical cancer, lung cancer. She is followed at [facility] and tells me she last saw her doctors last year. QT interval improving QT 357 and QTc 469 Patient also has hypokalemia, hypomagnesemia and hypophosphatemia. Will replete all and recheck. 01/19/2021 Patient is 50 yo with cervical cancer, lung cancer. Hypokalemia resolved. Phosphorus level still low. Patient has gallstones and was asking if it needs to be removed. Nausea, vomited 2 times yesterday. GI consulted. 01/20/2021 Patient is 50 yo with cervical cancer , lung cancer. HIDA scan abnormal. GI recommends cholecystectomy. Consult Surgeon. I had a family meeting with sonDave and daughterOksana in room and discussed management plan. History Interval history: Generalized weakness Nausea and vomiting Hospitalist Physical - Physical exam Narrative exam: Gen: Not in acute distress, lying in bed HEENT: Normocephalic, atraumatic Neck : supple, no JVD Heart:S1 and S2 reg, no murmurs, rubs or gallop Lungs: clear to auscultation bilaterally, no wheeze Abd: Soft , non tender, non distended, normal bowel sounds Ext: No edema, no clubbing, no cyanosis Neuro: Awake,alert - Constitutional Vitals: Temp Pulse Resp BP Pulse Ox 98.6 F 103 H 16 95/58 94 01/20/21 05:49 01/20/21 10:00 01/20/21 05:49 01/20/21 05:49 01/20/21 11:23 General appearance: Present: no acute distress HEART Score - HEART Score Troponin: Troponin T < 0.010 ng/mL (0.00-0.029) 01/15/21 11:41 Results - Labs CBC & Chem 7: 01/19/21 05:07 01/19/21 05:07 Labs: Laboratory Last Values WBC 4.7 K/mm3 (4.5-11.0) 01/19/21 05:07 RBC 3.03 M/mm3 (3.65-5.03) L 01/19/21 05:07 Hgb 9.7 gm/dl (10.1-14.3) L 01/19/21 05:07 Hct 28.6 % (30.3-42.9) L 01/19/21 05:07 MCV 94 fl (79-97) 01/19/21 05:07 MCH 32 pg (28-32) 01/19/21 05:07 MCHC 34 % (30-34) 01/19/21 05:07 RDW 13.4 % (13.2-15.2) 01/19/21 05:07 Plt Count 207 K/mm3 (140-440) 01/19/21 05:07 Lymph % (Auto) 27.3 % (13.4-35.0) 01/15/21 02:32 [place] % (Auto) 7.1 % (0.0-7.3) 01/15/21 02:32 Eos % (Auto) 0.2 % (0.0-4.3) 01/15/21 02:32 Baso % (Auto) 0.5 % (0.0-1.8) 01/15/21 02:32 Lymph # (Auto) 1.4 K/mm3 (1.2-5.4) 01/15/21 02:32 [place] # (Auto) 0.4 K/mm3 (0.0-0.8) 01/15/21 02:32 Eos # (Auto) 0.0 K/mm3 (0.0-0.4) 01/15/21 02:32 Baso # (Auto) 0.0 K/mm3 (0.0-0.1) 01/15/21 02:32 Add Manual Diff Complete 01/16/21 02:12 Total Counted 100 01/16/21 02:12 Seg Neutrophils % 64.9 % (40.0-70.0) 01/15/21 02:32 Seg Neuts % (Manual) 77.0 % (40.0-70.0) H 01/16/21 02:12 Band Neutrophils % 1.0 % 01/16/21 02:12 Lymphocytes % (Manual) 15.0 % (13.4-35.0) 01/16/21 02:12 Monocytes % (Manual) 6.0 % (0.0-7.3) 01/16/21 02:12 Basophils % (Manual) 1.0 % (0.0-1.8) 01/16/21 02:12 Nucleated RBC % Not Reportable 01/16/21 02:12 Seg Neutrophils # 3.3 K/mm3 (1.8-7.7) 01/15/21 02:32 Seg Neutrophils # Man 3.5 K/mm3 (1.8-7.7) 01/16/21 02:12 Band Neutrophils # 0.0 K/mm3 01/16/21 02:12 Lymphocytes # (Manual) 0.7 K/mm3 (1.2-5.4) L 01/16/21 02:12 Abs React Lymphs (Man) 0.0 K/mm3 01/16/21 02:12 Monocytes # (Manual) 0.3 K/mm3 (0.0-0.8) 01/16/21 02:12 Eosinophils # (Manual) 0.0 K/mm3 (0.0-0.4) 01/16/21 02:12 Basophils # (Manual) 0.0 K/mm3 (0.0-0.1) 01/16/21 02:12 Metamyelocytes # 0.0 K/mm3 01/16/21 02:12 Myelocytes # 0.0 K/mm3 01/16/21 02:12 Promyelocytes # 0.0 K/mm3 01/16/21 02:12 Blast Cells # 0.0 K/mm3 01/16/21 02:12 WBC Morphology Not Reportable 01/16/21 02:12 Hypersegmented Neuts Not Reportable 01/16/21 02:12 Hyposegmented Neuts Not Reportable 01/16/21 02:12 Hypogranular Neuts Not Reportable 01/16/21 02:12 Smudge Cells Not Reportable 01/16/21 02:12 Toxic Granulation Not Reportable 01/16/21 02:12 Toxic Vacuolation Not Reportable 01/16/21 02:12 Dohle Bodies Not Reportable 01/16/21 02:12 Pelger-Huet Anomaly Not Reportable 01/16/21 02:12 Alonzo Rods Not Reportable 01/16/21 02:12 Platelet Estimate Consistent w auto 01/16/21 02:12 Clumped Platelets Not Reportable 01/16/21 02:12 Plt Clumps, EDTA Not Reportable 01/16/21 02:12 Large Platelets Not Reportable 01/16/21 02:12 Giant Platelets Not Reportable 01/16/21 02:12 Platelet Satelliting Not Reportable 01/16/21 02:12 Plt Morphology Comment Not Reportable 01/16/21 02:12 RBC Morphology Not Reportable 01/16/21 02:12 Dimorphic RBCs Not Reportable 01/16/21 02:12 Polychromasia Not Reportable 01/16/21 02:12 Hypochromasia Not Reportable 01/16/21 02:12 Poikilocytosis Not Reportable 01/16/21 02:12 Anisocytosis 1+ 01/16/21 02:12 Microcytosis Not Reportable 01/16/21 02:12 Macrocytosis Not Reportable 01/16/21 02:12 Spherocytes Not Reportable 01/16/21 02:12 Pappenheimer Bodies Not Reportable 01/16/21 02:12 Sickle Cells Not Reportable 01/16/21 02:12 Target Cells Not Reportable 01/16/21 02:12 Tear Drop Cells Not Reportable 01/16/21 02:12 Ovalocytes Not Reportable 01/16/21 02:12 Helmet Cells Not Reportable 01/16/21 02:12 Bray-Ravensworth Bodies Not Reportable 01/16/21 02:12 [place] Rings Not Reportable 01/16/21 02:12 [place] Cells Not Reportable 01/16/21 02:12 Bite Cells Not Reportable 01/16/21 02:12 Crenated Cell Not Reportable 01/16/21 02:12 Elliptocytes Not Reportable 01/16/21 02:12 Acanthocytes (Spur) Not Reportable 01/16/21 02:12 Rouleaux Not Reportable 01/16/21 02:12 Hemoglobin C Crystals Not Reportable 01/16/21 02:12 Schistocytes Not Reportable 01/16/21 02:12 Malaria parasites Not Reportable 01/16/21 02:12 Calvin Bodies Not Reportable 01/16/21 02:12 Hem Pathologist Commnt No 01/16/21 02:12 PT 16.5 Sec. (12.2-14.9) H 01/16/21 02:12 INR 1.27 (0.87-1.13) H 01/16/21 02:12 APTT 26.4 Sec. (24.2-36.6) 01/15/21 02:32 D-Dimer 1101.34 ng/mlDDU (0-234) H 01/15/21 04:51 Sodium 134 mmol/L (137-145) L 01/19/21 05:07 Potassium 3.7 mmol/L (3.6-5.0) 01/19/21 05:07 Chloride 102.5 mmol/L (98-107) 01/19/21 05:07 Carbon Dioxide 20 mmol/L (22-30) L 01/19/21 05:07 Anion Gap 15 mmol/L 01/19/21 05:07 BUN 2 mg/dL (7-17) L 01/19/21 05:07 Creatinine 0.4 mg/dL (0.6-1.2) L 01/19/21 05:07 Estimated GFR > 60 ml/min 01/19/21 05:07 BUN/Creatinine Ratio 5 % 01/19/21 05:07 Glucose 71 mg/dL (65-100) 01/19/21 05:07 POC Glucose 109 mg/dL (70-105) H 01/20/21 00:51 Lactic Acid 1.80 mmol/L (0.7-2.0) 01/15/21 02:32 Calcium 7.9 mg/dL (8.4-10.2) L 01/19/21 05:07 Phosphorus 3.20 mg/dL (2.5-4.5) D 01/19/21 23:27 Magnesium 1.90 mg/dL (1.7-2.3) 01/19/21 05:07 Ferritin 630.5 ng/mL (10.0-200.0) H 01/15/21 04:51 Total Bilirubin 1.50 mg/dL (0.1-1.2) H 01/17/21 15:12 Direct Bilirubin 0.6 mg/dL (0-0.2) H 01/15/21 02:32 Indirect Bilirubin 1.3 mg/dL 01/15/21 02:32 AST 26 units/L (5-40) 01/17/21 15:12 ALT 32 units/L (7-56) 01/17/21 15:12 Alkaline Phosphatase 72 units/L (35-129) 01/17/21 15:12 Lactate Dehydrogenase 141 units/L (91-180) 01/15/21 04:51 Troponin T < 0.010 ng/mL (0.00-0.029) 01/15/21 11:41 C-Reactive Protein 0.30 mg/dL (0.00-1.30) 01/15/21 04:51 Total Protein 6.2 g/dL (6.3-8.2) L 01/17/21 15:12 Albumin 3.5 g/dL (3.9-5) L 01/17/21 15:12 Albumin/Globulin Ratio 1.3 % 01/17/21 15:12 Lipase 66 units/L (13-60) H 01/15/21 02:32 Procalcitonin 11.57 ng/mL (<0.15) 01/15/21 04:51 Coronavirus (PCR) Negative (Negative) 01/15/21 08:15 Microbiology: Microbiology 01/15/21 02:32 Peripheral/Venous Blood Culture - Final NO GROWTH AFTER 5 DAYS 01/15/21 02:26 Peripheral/Venous Blood Culture - Final NO GROWTH AFTER 5 DAYS 01/17/21 09:30 Urine,Clean Catch Urine Culture - Final Ramirez/IV: Voiding Method Bedside Commode Active Medications - Current Medications Current Medications: Generic Name Dose Route Start Last Admin Trade Name Freq PRN Reason Stop Dose Admin Acetaminophen 650 mg 01/15/21 06:24 Acetaminophen 325 Mg Tab PO Q6H PRN Pain MILD(1-3)/Fever >100.5/ALMEIDA Benzocaine/Menthol 1 each 01/17/21 14:30 01/17/21 16:19 Benzocaine/Menthol Lozenge MM 1 each Q2HR PRN Administration Sore Throat Heparin Sodium (Porcine) 5,000 unit 01/15/21 14:00 01/20/21 05:51 Heparin 5,000 Unit/1 Ml Vial SUB-Q 5,000 unit Q8HR AHSAN Administration Dextrose/Sodium Chloride 1,000 mls @ 75 mls/hr 01/19/21 17:00 01/20/21 05:54 D5ns IV 75 mls/hr DIRECT AHSAN Administration Magnesium Hydroxide 30 ml 01/15/21 06:24 Magnesium Hydroxide (Mom) Oral Liqd Udc PO Q4H PRN Constipation Morphine Sulfate 2 mg 01/15/21 06:24 Morphine 2 Mg/1 Ml Inj IV Q4H PRN Pain, Moderate (4-6) Morphine Sulfate 4 mg 01/15/21 06:24 Morphine 4 Mg/1 Ml Inj IV Q4H PRN Pain , Severe (7-10) Ondansetron HCl 4 mg 01/15/21 06:24 01/19/21 22:12 Ondansetron 4 Mg/2 Ml Inj IV 4 mg Q8H PRN Administration Nausea And Vomiting Sodium Chloride 10 ml 01/15/21 10:00 01/20/21 09:56 Sodium Chloride 0.9% 10 Ml Flush Syringe IV 10 ml BID AHSAN Administration Sodium Chloride 10 ml 01/15/21 06:24 Sodium Chloride 0.9% 10 Ml Flush Syringe IV PRN PRN LINE FLUSH Nutrition/Malnutrition Assess - Dietary Evaluation Nutrition/Malnutrition Findings: Nutrition Notes Start: 01/15/21 09:31 Freq: Status: Active Protocol: Document 01/18/21 13:08 (Rec: 01/18/21 13:09 [id number]) Nutrition Notes Initial or Follow up Brief Note Other Pertinent Diagnosis hx cervical and lung cancer, mass in lung, generalized weakness Current Diet regular Height 5 ft 8 in Weight 63.2 kg [place] Body Weight (kg) 63.63 BMI 21.2 Subjective/Other Information Pt drinking some of the Ensure Enlives. She doesn't like Ensure Clears. Pt eating <10% of meals. Percent of energy/protein needs met: negligible Current % PO Negligible Is patient on ventilator? No Is Patient Ambulatory and/or Out of Bed No REE-([facility]-confined to bed) [phone] Calculation Used for Recommendations Tobin Ramirez Additional Notes Protein: (1.2-1.5g/kg) 76-95g Fluid: 1ml/kcal or per MD Nutrition Intervention Add Supplement/Snack (indicate name/kcal Ensure Enlive BID /protein ) Provides kCal: 700 Provides Protein (gm) 40 Goal #1 Meet at least 75% of energy and protein needs via PO and ONS Goal #2 Weight maintenance Follow-Up By: 01/20/21 Additional Comments FU for intakes and ONS tolerance
--- NOTE | 2021-01-20 13:06 | Nuclear Medicine Report ---
NUCLEAR MEDICINE HEPATOBILIARY SCAN INDICATION / CLINICAL INFORMATION: nausea, vomiting. TECHNIQUE: - Radiotracer: Tc-99m mebrofenin (by IV): 5.2 mCi. - Gallbladder Stimulant: None used. COMPARISON: CT scan dated 01/15/2021 FINDINGS: HEPATIC ACTIVITY: Normal. BILIARY ACTIVITY: Normal. Common bile duct activity at 10 minutes. GALLBLADDER ACTIVITY: Nonvisualized SMALL BOWEL ACTIVITY: Normal at 20 minutes. IMPRESSION: 1. There is nonvisualization of the gallbladder indicating cystic duct obstruction. This is suspiciou s for cholecystitis though obstruction from stone is also a possibility. Signer Name: Gary Ko MD Signed: 01/20/2021 1:02 PM Workstation Name: [id number]
--- NOTE | 2021-01-20 13:24 | Event Note ---
Date: 01/20/21 Had a family meeting with son at bedside and daughter on phone and gave them update.
--- NOTE | 2021-01-20 14:15 | Consultation ---
History of Present Illness Consult date: 01/20/21 Reason for consult: gallstones - History of present illness History of present illness: General surgery consulted for cholecystitis. Patient is a 50-year-old female, history of cervical and lung malignancy ,who presented to the hospital several days ago with 2-month history of worsening abdominal pain epigastric area and right upper quadrant with nausea and vomiting. Patient had abdominal ultrasound and CT scan which showed gallstones but no definitive signs of cholecystitis. Patient had a HIDA scan that showed nonfilling of the gallbladder consistent with cholecystitis. Patient says she has generalized pain all over continues to have abdominal pain. Past History Past Medical History: other (Lung and Cervical Ca) Past Surgical History: Other (Tubal ligation,Right lower lobectomy,Hysterectomy) Social history: no significant social history Family history: no significant family history Medications and Allergies Allergies Allergy/AdvReac Type Severity Reaction Status Date / Time No Known Allergies Allergy Verified 07/27/20 13:43 Home Medications Medication Instructions Recorded Confirmed Last Taken Type Ketorolac [Toradol] 10 mg PO Q6H PRN #20 tablet 07/27/20 01/15/21 Unknown Rx methOCARBAMOL [Robaxin TAB] 750 mg PO Q8H PRN #30 tablet 07/27/20 01/15/21 Unknown Rx Active Meds: Active Medications Acetaminophen (Acetaminophen 325 Mg Tab) 650 mg PO Q6H PRN PRN Reason: Pain MILD(1-3)/Fever >100.5/ALMEIDA Benzocaine/Menthol (Benzocaine/Menthol Lozenge) 1 each MM Q2HR PRN PRN Reason: Sore Throat Last Admin: 01/17/21 16:19 Dose: 1 each Documented by: Heparin Sodium (Porcine) (Heparin 5,000 Unit/1 Ml Vial) 5,000 unit SUB-Q Q8HR AHSAN Last Admin: 01/20/21 05:51 Dose: 5,000 unit Documented by: Dextrose/Sodium Chloride (D5ns) 1,000 mls @ 75 mls/hr IV DIRECT AHSAN Last Admin: 01/20/21 05:54 Dose: 75 mls/hr Documented by: Magnesium Hydroxide (Magnesium Hydroxide (Mom) Oral Liqd Udc) 30 ml PO Q4H PRN PRN Reason: Constipation Morphine Sulfate (Morphine 2 Mg/1 Ml Inj) 2 mg IV Q4H PRN PRN Reason: Pain, Moderate (4-6) Morphine Sulfate (Morphine 4 Mg/1 Ml Inj) 4 mg IV Q4H PRN PRN Reason: Pain , Severe (7-10) Ondansetron HCl (Ondansetron 4 Mg/2 Ml Inj) 4 mg IV Q8H PRN PRN Reason: Nausea And Vomiting Last Admin: 01/19/21 22:12 Dose: 4 mg Documented by: Sodium Chloride (Sodium Chloride 0.9% 10 Ml Flush Syringe) 10 ml IV BID AHSAN Last Admin: 01/20/21 09:56 Dose: 10 ml Documented by: Sodium Chloride (Sodium Chloride 0.9% 10 Ml Flush Syringe) 10 ml IV PRN PRN PRN Reason: LINE FLUSH Review of Systems All systems: negative - Gastrointestinal abdominal pain, nausea, vomiting Exam Vital Signs Temp Pulse Resp BP Pulse Ox 98.4 F 104 H 18 98/67 99 01/15/21 01:50 01/15/21 01:50 01/15/21 01:50 01/15/21 01:50 01/15/21 01:50 - General physical appearance Positive: well developed, no distress, moderate pain - Respiratory Positive: normal expansion, normal respiratory effort - Cardiovascular Heart Sounds: Present: S1 & S2 - Extremities Extremities: no ischemia - Abdomen Abdomen: Present: soft, other (Generalized tenderness to palpation, well-healed laparoscopic and infraumbilical scar.). Absent: rebound, guarding, rigid Results - Labs 01/19/21 05:07 01/19/21 05:07 Abnormal lab results 01/19/21 01/20/21 Range/Units 15:42 00:51 POC Glucose 65 L 109 H (70-105) mg/dL Calcium panel 01/19/21 Range/Units 23:27 Phosphorus 3.20 D (2.5-4.5) mg/dL Assessment and Plan 30-year-old female with cholelithiasis and probable cholecystitis. Afebrile and stable with persistent abdominal pain nausea and vomiting. Discussed procedure Performed: Lap cholecystectomy with patient including risk and benefits. Patient is agreeable to consent for procedure. Procedure Performed: Lap cho lecystectomy with intraoperative cholangiogram planned for Saturday. Patient may be on clear liquids as tolerated.
[2021-01-20] MEDS ORDERED: MIDODRINE 5 MG TAB PO SCH (16:00)
--- NOTE | 2021-01-20 16:29 | Gastroenterology Progress Note ---
Assessment and Plan 1. GI: pt w/ n/v now HIDA consistent w/ GB disease - surgery input noted, for lap rashaad Saturday - diet as tolerated - no plans to scope at this time - will follow Subjective Date of service: 01/20/21 Interval history: - reports feeling slightly better, tolerating some more po Objective - Constitutional Vitals: Temp Pulse Resp BP Pulse Ox 98.7 F 103 H 18 86/58 94 01/20/21 08:00 01/20/21 10:00 01/20/21 08:00 01/20/21 08:00 01/20/21 11:23 General appearance: no acute distress - EENT Eyes: PERRL - Respiratory Respiratory: bilateral: CTA - Cardiovascular Rhythm: regular Heart Sounds: Present: S1 & S2 - Gastrointestinal General gastrointestinal: Present: soft, non-tender, non-distended - Labs CBC & Chem 7: 01/19/21 05:07 01/19/21 05:07 Labs: Laboratory Results - last 24 hr 01/19/21 01/20/21 23:27 00:51 POC Glucose 109 H Phosphorus 3.20 D
--- NOTE | 2021-01-20 17:34 | Electrocardiograph Report ---
[facility] Test Date: 2021-01-18 Test Time: 13:05:20 Pat Name: ORLY MOORE Department: Room: A474 1 Gender: F Manager Women: TRINO : 1970 Requested By: ED CANTU Order Number: [id number] Reading MD: Diogo Vasquez Measurements Intervals [place] Rate: 103 P: 74 DE: 143 QRS: 79 QRSD: 87 T: 72 QT: 344 QTc: 450 Interpretive Statements Sinus tachycardia Compared to ECG 01/17/2021 11:58:49 No significant change noted. Electronically Signed On 01-20-2021 17:33:56 EDT by Diogo Vasquez
--- NOTE | 2021-01-20 18:01 | Progress Note ---
Assessment and Plan - Patient Problems (1) Prolonged Q-T interval on ECG Current Visit: Yes Status: Acute Plan to address problem: QT interval has normalized after correction of electrolyte abnormalities, and stoppage of antiemetic drugs, currently 345 ms. (2) Pre-op evaluation Current Visit: Yes Status: Acute Plan to address problem: Patient has no cardiac contraindications to gallbladder surgery, he may proceed with surgery, low cardiac risk. Subjective Date of service: 01/20/21 Interval history: Patient is comfortable, no cardiac complaints. It has been suggested that she may need gallbladder surgery. Objective Vital Signs Temp Pulse Resp BP BP Pulse Ox 01/20/21 11:23 94 01/20/21 10:00 103 H 01/20/21 08:00 98.7 F 125 H 18 86/58 100 01/20/21 05:49 98.6 F 103 H 16 95/58 99 01/20/21 00:42 98.1 F 95 H 12 90/64 97 01/20/21 00:09 94 01/19/21 22:22 97.4 F L 112 H 16 81/60 94 01/19/21 20:30 112 H - Physical Examination General: No Apparent Distress HEENT: Positive: PERRL Neck: Positive: neck supple Cardiac: Positive: Reg Rate and Rhythm Lungs: Positive: clear to auscultation Neuro: Positive: Grossly Intact, Weakness Abdomen: Positive: Soft Skin: Positive: Clear Extremities: Absent: edema
[2021-01-20] MEDS: ONDANSETRON 4 MG/2 ML INJ IV PRN (18:08)
[2021-01-21] MEDS: ONDANSETRON 4 MG/2 ML INJ IV PRN ×2 (04:42→14:50)
[2021-01-21] MEDS: D5W/0.9% NACL 1,000 ML IV SCH (04:42)
[2021-01-21] MEDS: HEPARIN 5,000 UNIT/1 ML VIAL SUB-Q SCH ×3 (05:46→21:24)
[2021-01-21] MEDS ORDERED: ONDANSETRON 4 MG/2 ML INJ IV ONE (06:08)
[2021-01-21 06:31] LABS: Calcium 7.8 mg/dL (8.4-10.2); Hemolysis Index 0
[2021-01-21 06:39] LABS: BUN/Creatinine Ratio 3; Blood Urea Nitrogen < 1 mg/dL (7-17)
[2021-01-21] MEDS ORDERED: MAGNESIUM SULFATE 4 GM/100 ML BAG IV ONE (07:21)
[2021-01-21] MEDS: MIDODRINE 5 MG TAB PO SCH ×3 (08:06→16:41)
--- NOTE | 2021-01-21 09:25 | Progress Note ---
Assessment and Plan Assessment and plan: Hypotension Hypokalemia Lung CA Cervical CA Cholelithiasis without acute cholecystitis Abnormal EKG/prolonged QT Elevated D-dimer 01/15/2021. This is a follow-up from an admission earlier this morning. Await cardiology consultation. Continue IV fluid hydration. Follow-up echocardiogram. 01/16/2021. Prolonged QT secondary to hypokalemia/hypocalcemia. Replace potassium and magnesium per cardiology recommendations. Correct hypocalcemia. Follow-up echocardiogram. COVID-19 negative. Patient with elevated D-dimer but CTA of chest also negative. Transfer to telemetry. 01/17/2021 Patient is 50 yo with cervical cancer, lung cancer. She also has prolonged QT interval. Cardiology following. QTc 465, improving. I discussed case with cardiology 01/18/2021 Patient is 50 yo with cervical cancer, lung cancer. She is followed at [place] and tells me she last saw her doctors last year. QT interval improving QT 357 and QTc 469 Patient also has hypokalemia, hypomagnesemia and hypophosphatemia. Will replete all and recheck. 01/19/2021 Patient is 50 yo with cervical cancer, lung cancer. Hypokalemia resolved. Phosphorus level still low. Patient has gallstones and was asking if it needs to be removed. Nausea, vomited 2 times yesterday. GI consulted. 01/20/2021 Patient is 50 yo with cervical cancer , lung cancer. HIDA scan abnormal. GI recommends cholecystectomy. Consult Surgeon. I had a family meeting with son, Dave and daughter, Oksana in room and discussed management plan. 01/21/2021 Patient is 50 yo with cervical cancer, lung cancer. Had abnormal HIDA scan for lap cholecystectomy. Low Potassium. low Mg. Replacement ordered. BP low so started on Midodrine. Change iv fluid to D5NS with Potassium History Interval history: Generalized weakness Nausea and vomiting Hospitalist Physical - Physical exam Narrative exam: Gen: Not in acute distress, lying in bed HEENT: Normocephalic, atraumatic Neck : supple, no JVD Heart:S1 and S2 reg, no murmurs, rubs or gallop Lungs: clear to auscultation bilaterally, no wheeze Abd: Soft , non tender, non distended, normal bowel sounds Ext: No edema, no clubbing, no cyanosis Neuro: Awake,alert - Constitutional Vitals: Temp Pulse Resp BP Pulse Ox 98.0 F 106 H 18 87/43 94 01/21/21 04:36 01/21/21 04:36 01/21/21 04:36 01/21/21 04:36 01/21/21 04:36 General appearance: Present: no acute distress HEART Score - HEART Score Troponin: Troponin T < 0.010 ng/mL (0.00-0.029) 01/15/21 11:41 Results - Labs CBC & Chem 7: 01/19/21 05:07 01/21/21 05:43 Labs: Laboratory Last Values WBC 4.7 K/mm3 (4.5-11.0) 01/19/21 05:07 RBC 3.03 M/mm3 (3.65-5.03) L 01/19/21 05:07 Hgb 9.7 gm/dl (10.1-14.3) L 01/19/21 05:07 Hct 28.6 % (30.3-42.9) L 01/19/21 05:07 MCV 94 fl (79-97) 01/19/21 05:07 MCH 32 pg (28-32) 01/19/21 05:07 MCHC 34 % (30-34) 01/19/21 05:07 RDW 13.4 % (13.2-15.2) 01/19/21 05:07 Plt Count 207 K/mm3 (140-440) 01/19/21 05:07 Lymph % (Auto) 27.3 % (13.4-35.0) 01/15/21 02:32 [place] % (Auto) 7.1 % (0.0-7.3) 01/15/21 02:32 Eos % (Auto) 0.2 % (0.0-4.3) 01/15/21 02:32 Baso % (Auto) 0.5 % (0.0-1.8) 01/15/21 02:32 Lymph # (Auto) 1.4 K/mm3 (1.2-5.4) 01/15/21 02:32 [place] # (Auto) 0.4 K/mm3 (0.0-0.8) 01/15/21 02:32 Eos # (Auto) 0.0 K/mm3 (0.0-0.4) 01/15/21 02:32 Baso # (Auto) 0.0 K/mm3 (0.0-0.1) 01/15/21 02:32 Add Manual Diff Complete 01/16/21 02:12 Total Counted 100 01/16/21 02:12 Seg Neutrophils % 64.9 % (40.0-70.0) 01/15/21 02:32 Seg Neuts % (Manual) 77.0 % (40.0-70.0) H 01/16/21 02:12 Band Neutrophils % 1.0 % 01/16/21 02:12 Lymphocytes % (Manual) 15.0 % (13.4-35.0) 01/16/21 02:12 Monocytes % (Manual) 6.0 % (0.0-7.3) 01/16/21 02:12 Basophils % (Manual) 1.0 % (0.0-1.8) 01/16/21 02:12 Nucleated RBC % Not Reportable 01/16/21 02:12 Seg Neutrophils # 3.3 K/mm3 (1.8-7.7) 01/15/21 02:32 Seg Neutrophils # Man 3.5 K/mm3 (1.8-7.7) 01/16/21 02:12 Band Neutrophils # 0.0 K/mm3 01/16/21 02:12 Lymphocytes # (Manual) 0.7 K/mm3 (1.2-5.4) L 01/16/21 02:12 Abs React Lymphs (Man) 0.0 K/mm3 01/16/21 02:12 Monocytes # (Manual) 0.3 K/mm3 (0.0-0.8) 01/16/21 02:12 Eosinophils # (Manual) 0.0 K/mm3 (0.0-0.4) 01/16/21 02:12 Basophils # (Manual) 0.0 K/mm3 (0.0-0.1) 01/16/21 02:12 Metamyelocytes # 0.0 K/mm3 01/16/21 02:12 Myelocytes # 0.0 K/mm3 01/16/21 02:12 Promyelocytes # 0.0 K/mm3 01/16/21 02:12 Blast Cells # 0.0 K/mm3 01/16/21 02:12 WBC Morphology Not Reportable 01/16/21 02:12 Hypersegmented Neuts Not Reportable 01/16/21 02:12 Hyposegmented Neuts Not Reportable 01/16/21 02:12 Hypogranular Neuts Not Reportable 01/16/21 02:12 Smudge Cells Not Reportable 01/16/21 02:12 Toxic Granulation Not Reportable 01/16/21 02:12 Toxic Vacuolation Not Reportable 01/16/21 02:12 Dohle Bodies Not Reportable 01/16/21 02:12 Pelger-Huet Anomaly Not Reportable 01/16/21 02:12 Alonzo Rods Not Reportable 01/16/21 02:12 Platelet Estimate Consistent w auto 01/16/21 02:12 Clumped Platelets Not Reportable 01/16/21 02:12 Plt Clumps, EDTA Not Reportable 01/16/21 02:12 Large Platelets Not Reportable 01/16/21 02:12 Giant Platelets Not Reportable 01/16/21 02:12 Platelet Satelliting Not Reportable 01/16/21 02:12 Plt Morphology Comment Not Reportable 01/16/21 02:12 RBC Morphology Not Reportable 01/16/21 02:12 Dimorphic RBCs Not Reportable 01/16/21 02:12 Polychromasia Not Reportable 01/16/21 02:12 Hypochromasia Not Reportable 01/16/21 02:12 Poikilocytosis Not Reportable 01/16/21 02:12 Anisocytosis 1+ 01/16/21 02:12 Microcytosis Not Reportable 01/16/21 02:12 Macrocytosis Not Reportable 01/16/21 02:12 Spherocytes Not Reportable 01/16/21 02:12 Pappenheimer Bodies Not Reportable 01/16/21 02:12 Sickle Cells Not Reportable 01/16/21 02:12 Target Cells Not Reportable 01/16/21 02:12 Tear Drop Cells Not Reportable 01/16/21 02:12 Ovalocytes Not Reportable 01/16/21 02:12 Helmet Cells Not Reportable 01/16/21 02:12 [place] Bodies Not Reportable 01/16/21 02:12 [place] Rings Not Reportable 01/16/21 02:12 [place] Cells Not Reportable 01/16/21 02:12 Bite Cells Not Reportable 01/16/21 02:12 Crenated Cell Not Reportable 01/16/21 02:12 Elliptocytes Not Reportable 01/16/21 02:12 Acanthocytes (Spur) Not Reportable 01/16/21 02:12 Rouleaux Not Reportable 01/16/21 02:12 Hemoglobin C Crystals Not Reportable 01/16/21 02:12 Schistocytes Not Reportable 01/16/21 02:12 Malaria parasites Not Reportable 01/16/21 02:12 Calvin Bodies Not Reportable 01/16/21 02:12 Hem Pathologist Commnt No 01/16/21 02:12 PT 16.5 Sec. (12.2-14.9) H 01/16/21 02:12 INR 1.27 (0.87-1.13) H 01/16/21 02:12 APTT 26.4 Sec. (24.2-36.6) 01/15/21 02:32 D-Dimer 1101.34 ng/mlDDU (0-234) H 01/15/21 04:51 Sodium 134 mmol/L (137-145) L 01/21/21 05:43 Potassium 3.2 mmol/L (3.6-5.0) L 01/21/21 05:43 Chloride 103.1 mmol/L (98-107) 01/21/21 05:43 Carbon Dioxide 22 mmol/L (22-30) 01/21/21 05:43 Anion Gap 12 mmol/L 01/21/21 05:43 BUN < 1 mg/dL (7-17) L 01/21/21 05:43 Creatinine 0.4 mg/dL (0.6-1.2) L 01/21/21 05:43 Estimated GFR > 60 ml/min 01/21/21 05:43 BUN/Creatinine Ratio 3 % 01/21/21 05:43 Glucose 106 mg/dL (65-100) H 01/21/21 05:43 POC Glucose 103 mg/dL (70-105) 01/20/21 21:40 Lactic Acid 1.80 mmol/L (0.7-2.0) 01/15/21 02:32 Calcium 7.8 mg/dL (8.4-10.2) L 01/21/21 05:43 Phosphorus 2.70 mg/dL (2.5-4.5) 01/21/21 05:43 Magnesium 1.50 mg/dL (1.7-2.3) L 01/21/21 05:43 Ferritin 630.5 ng/mL (10.0-200.0) H 01/15/21 04:51 Total Bilirubin 1.50 mg/dL (0.1-1.2) H 01/17/21 15:12 Direct Bilirubin 0.6 mg/dL (0-0.2) H 01/15/21 02:32 Indirect Bilirubin 1.3 mg/dL 01/15/21 02:32 AST 26 units/L (5-40) 01/17/21 15:12 ALT 32 units/L (7-56) 01/17/21 15:12 Alkaline Phosphatase 72 units/L (35-129) 01/17/21 15:12 Lactate Dehydrogenase 141 units/L (91-180) 01/15/21 04:51 Troponin T < 0.010 ng/mL (0.00-0.029) 01/15/21 11:41 C-Reactive Protein 0.30 mg/dL (0.00-1.30) 01/15/21 04:51 Total Protein 6.2 g/dL (6.3-8.2) L 01/17/21 15:12 Albumin 3.5 g/dL (3.9-5) L 01/17/21 15:12 Albumin/Globulin Ratio 1.3 % 01/17/21 15:12 Lipase 66 units/L (13-60) H 01/15/21 02:32 Procalcitonin 11.57 ng/mL (<0.15) 01/15/21 04:51 Coronavirus (PCR) Negative (Negative) 01/15/21 08:15 Microbiology: Microbiology 01/15/21 02:32 Peripheral/Venous Blood Culture - Final NO GROWTH AFTER 5 DAYS 01/15/21 02:26 Peripheral/Venous Blood Culture - Final NO GROWTH AFTER 5 DAYS 01/17/21 09:30 Urine,Clean Catch Urine Culture - Final Ramirez/IV: Voiding Method Bedside Commode Active Medications - Current Medications Current Medications: Generic Name Dose Route Start Last Admin Trade Name Freq PRN Reason Stop Dose Admin Acetaminophen 650 mg 01/15/21 06:24 Acetaminophen 325 Mg Tab PO Q6H PRN Pain MILD(1-3)/Fever >100.5/ALMEIDA Benzocaine/Menthol 1 each 01/17/21 14:30 01/17/21 16:19 Benzocaine/Menthol Lozenge MM 1 each Q2HR PRN Administration Sore Throat Heparin Sodium (Porcine) 5,000 unit 01/15/21 14:00 01/21/21 05:46 Heparin 5,000 Unit/1 Ml Vial SUB-Q 5,000 unit Q8HR AHSAN Administration Magnesium Sulfate 4 gm in 100 mls @ 25 mls/hr 01/21/21 07:21 01/21/21 08:06 Magnesium Sulfate 4gm/100ml IV 01/21/21 11:20 25 mls/hr ONCE ONE Administration Potassium Chloride/Dextrose/Sod Cl 20 meq in 1,000 mls @ 75 mls/hr 01/21/21 08:00 D5w/Ns W/Kcl 20meq IV DIRECT AHSAN Magnesium Hydroxide 30 ml 01/15/21 06:24 Magnesium Hydroxide (Mom) Oral Liqd Udc PO Q4H PRN Constipation Midodrine 10 mg 01/21/21 08:00 01/21/21 08:06 Midodrine 5 Mg Tab PO 10 mg TID@0800,1200,1600 AHSAN Administration Morphine Sulfate 2 mg 01/15/21 06:24 Morphine 2 Mg/1 Ml Inj IV Q4H PRN Pain, Moderate (4-6) Morphine Sulfate 4 mg 01/15/21 06:24 Morphine 4 Mg/1 Ml Inj IV Q4H PRN Pain , Severe (7-10) Ondansetron HCl 4 mg 01/15/21 06:24 01/21/21 04:42 Ondansetron 4 Mg/2 Ml Inj IV 4 mg Q8H PRN Administration Nausea And Vomiting Sodium Chloride 10 ml 01/15/21 10:00 01/20/21 21:19 Sodium Chloride 0.9% 10 Ml Flush Syringe IV Not Given BID AHSAN Sodium Chloride 10 ml 01/15/21 06:24 Sodium Chloride 0.9% 10 Ml Flush Syringe IV PRN PRN LINE FLUSH Nutrition/Malnutrition Assess - Dietary Evaluation Nutrition/Malnutrition Findings: Nutrition Notes Start: 01/15/21 09:31 Freq: Status: Active Protocol: Document 01/20/21 14:07 (Rec: 01/20/21 14:07 DUNG [id number]) Nutrition Notes Initial or Follow up Brief Note Other Pertinent Diagnosis hx cervical and lung cancer, mass in lung, generalized weakness Current Diet regular Subjective/Other Information Pt not in room at time of visit. Nutrition Intervention Follow-Up By: 01/23/21 Additional Comments FU for intakes and ONS tolerance
[2021-01-21] MEDS: D5NS W/KCL 20 MEQ 20 MEQ/1,000 ML BAG IV SCH (09:51)
--- NOTE | 2021-01-21 10:21 | Progress Note ---
Assessment and Plan Prolonged QTc related to hypokalemia and hypomagnesemia: Improved based on last ECG Hypokalemia and hypomagnesemia Abdominal pain and possible cholecystitis Lung CA Cervical CA Recommend: Continue to aggressively replete electrolytes From cardiac perspective, may proceed with cholecystectomy. Lela-operative cardiac risk will be low. Subjective Date of service: 01/21/21 Interval history: No cardiac events. Objective Vital Signs Temp Pulse Resp BP BP Pulse Ox 01/21/21 04:36 98.0 F 106 H 18 87/43 94 01/21/21 00:14 98.2 F 110 H 18 94/66 96 01/20/21 23:00 20 96 01/20/21 22:00 103 H 01/20/21 20:12 98.0 F 99 H 18 97/59 100 01/20/21 16:00 98.0 F 112 H 18 98/67 100 01/20/21 11:23 94 - Physical Examination General: No Apparent Distress HEENT: Positive: PERRL Neck: Positive: neck supple Cardiac: Positive: Reg Rate and Rhythm Lungs: Positive: clear to auscultation Neuro: Positive: Grossly Intact, Weakness Skin: Positive: Clear Extremities: Absent: edema - Labs and Meds Comprehensive Metabolic Panel 01/21/21 Range/Units 05:43 Sodium 134 L (137-145) mmol/L Potassium 3.2 L (3.6-5.0) mmol/L Chloride 103.1 (98-107) mmol/L Carbon Dioxide 22 (22-30) mmol/L BUN < 1 L (7-17) mg/dL Creatinine 0.4 L (0.6-1.2) mg/dL Glucose 106 H (65-100) mg/dL Calcium 7.8 L (8.4-10.2) mg/dL
--- NOTE | 2021-01-21 13:04 | Event Note ---
Date: 01/21/21 Patient says that she feels about the same as yesterday. No acute events overnight. Patient is intermittent nausea and vomiting that is controlled with medication, however she does acknowledge that she is able to keep most of her liquids down. Patient was cleared by cardiology. Patient scheduled for laparoscopic cholecystectomy on Saturday.
--- NOTE | 2021-01-21 15:00 | Gastroenterology Progress Note ---
Assessment and Plan 1. GI: pt recurrent n/v, HIDA scam suggestive of GB disease - for lap rashaad on Saturday - continue current diet or meds - no need further GI intervention at this time, will sign off call if needed Subjective Date of service: 01/21/21 Interval history: - reports some iprovng n/v, denies other complaints Objective - Constitutional Vitals: Temp Pulse Resp BP Pulse Ox 98.0 F 113 H 18 91/51 96 01/21/21 12:39 01/21/21 12:39 01/21/21 14:26 01/21/21 14:26 01/21/21 12:39 General appearance: no acute distress - EENT Eyes: PERRL - Respiratory Respiratory: bilateral: CTA - Cardiovascular Rhythm: regular Heart Sounds: Present: S1 & S2 - Gastrointestinal General gastrointestinal: Present: soft, non-tender, non-distended - Labs CBC & Chem 7: 01/19/21 05:07 01/21/21 05:43 Labs: Laboratory Results - last 24 hr 01/20/21 01/21/21 21:40 05:43 Sodium 134 L Potassium 3.2 L Chloride 103.1 Carbon Dioxide 22 Anion Gap 12 BUN < 1 L Creatinine 0.4 L Estimated GFR > 60 BUN/Creatinine Ratio 3 Glucose 106 H POC Glucose 103 Calcium 7.8 L Phosphorus 2.70 Magnesium 1.50 L
[2021-01-21] MEDS: PANTOPRAZOLE 40 MG INJ IV SCH (15:11)
[2021-01-21] MEDS ORDERED: SODIUM CHLORIDE 0.9% 500 ML 500 ML IV ONE (15:30)
--- NOTE | 2021-01-21 15:54 | Hem/Onc Consultation ---
History of Present Illness - History of Present Illness onc consult televisit via [facility] CPT 90090 dx: lung cancer ----- 50yo active AA woman with h/o locally advanced lung cancer , s/p chemotherapy, in remission for two years has been followed by Dr. Yvonne Briseno in [facility] for weakness, vomiting for several weeks-->found to have evidence of acute cholecystitis "incidentaly" found to have RUL lung mass concerning for recurrent lung ca PMH notable for cervical ca and lung ca Soc: involbed family; cigarette smoker she was seen in [facility] ER in 09/2020 for chest pain-->subtle findings on CXR DATA REVIEWED BELOW Chest CT showed RUL lass and mediastinal mass, encasing the R main bronchus and R pulm artery IMP: relapsed or new primary lung cancer symptomatic cholelithiasis, planning surgery good functional status, good candidate for antitumor therapy REC: she will need lung tumor biopsy eventually it would be convenient for her to do it while in hospital, but not urgent from my perspective this can probably be set up after discharge (e.g. outpt) she should have pulm f/u and oncology f/u ( Dr. Briseno) I told her she has a lung tumor Laboratory Last Values WBC 4.7 K/mm3 (4.5-11.0) 01/19/21 05:07 Hgb 9.7 gm/dl (10.1-14.3) L 01/19/21 05:07 Hct 28.6 % (30.3-42.9) L 01/19/21 05:07 Plt Count 207 K/mm3 (140-440) 01/19/21 05:07 Seg Neutrophils % 64.9 % (40.0-70.0) 01/15/21 02:32 PT 16.5 Sec. (12.2-14.9) H 01/16/21 02:12 INR 1.27 (0.87-1.13) H 01/16/21 02:12 APTT 26.4 Sec. (24.2-36.6) 01/15/21 02:32 D-Dimer 1101.34 ng/mlDDU (0-234) H 01/15/21 04:51 Creatinine 0.4 mg/dL (0.6-1.2) L 01/21/21 05:43 Procalcitonin 11.57 ng/mL (<0.15) 01/15/21 04:51 Coronavirus (PCR) Negative (Negative) 01/15/21 08:15 . Past History Past Medical History: other (Lung and Cervical Ca) Past Surgical History: Other (Tubal ligation,Right lower lobectomy,Hysterectomy) Social history: no significant social history Family history: no significant family history Medications and Allergies Allergies Allergy/AdvReac Type Severity Reaction Status Date / Time No Known Allergies Allergy Verified 07/27/20 13:43 Home Medications Medication Instructions Recorded Confirmed Last Taken Type Ketorolac [Toradol] 10 mg PO Q6H PRN #20 tablet 07/27/20 01/15/21 Unknown Rx methOCARBAMOL [Robaxin TAB] 750 mg PO Q8H PRN #30 tablet 07/27/20 01/15/21 Unknown Rx Active Meds: Active Medications Acetaminophen (Acetaminophen 325 Mg Tab) 650 mg PO Q6H PRN PRN Reason: Pain MILD(1-3)/Fever >100.5/ALMEIDA Benzocaine/Menthol (Benzocaine/Menthol Lozenge) 1 each MM Q2HR PRN PRN Reason: Sore Throat Last Admin: 01/17/21 16:19 Dose: 1 each Documented by: Heparin Sodium (Porcine) (Heparin 5,000 Unit/1 Ml Vial) 5,000 unit SUB-Q Q8HR AHSAN Last Admin: 01/21/21 14:51 Dose: 5,000 unit Documented by: Potassium Chloride/Dextrose/Sod Cl (D5w/Ns W/Kcl 20meq) 20 meq in 1,000 mls @ 75 mls/hr IV DIRECT AHSAN Last Admin: 01/21/21 09:51 Dose: 75 mls/hr Documented by: Sodium Chloride (Nacl 0.9% 500 Ml) 500 mls @ 999 mls/hr IV ONCE ONE Stop: 01/21/21 16:00 Last Admin: 01/21/21 15:11 Dose: 999 mls/hr Documented by: Magnesium Hydroxide (Magnesium Hydroxide (Mom) Oral Liqd Udc) 30 ml PO Q4H PRN PRN Reason: Constipation Midodrine (Midodrine 5 Mg Tab) 10 mg PO TID@0800,1200,1600 AHSAN Last Admin: 01/21/21 11:56 Dose: 10 mg Documented by: Morphine Sulfate (Morphine 2 Mg/1 Ml Inj) 2 mg IV Q4H PRN PRN Reason: Pain, Moderate (4-6) Morphine Sulfate (Morphine 4 Mg/1 Ml Inj) 4 mg IV Q4H PRN PRN Reason: Pain , Severe (7-10) Ondansetron HCl (Ondansetron 4 Mg/2 Ml Inj) 4 mg IV Q8H PRN PRN Reason: Nausea And Vomiting Last Admin: 01/21/21 14:50 Dose: 4 mg Documented by: Pantoprazole Sodium (Pantoprazole 40 Mg Inj) 40 mg IV QDAY [facility] Last Admin: 01/21/21 15:11 Dose: 40 mg Documented by: Sodium Chloride (Sodium Chloride 0.9% 10 Ml Flush Syringe) 10 ml IV BID [facility] Last Admin: 01/21/21 09:52 Dose: 10 ml Documented by: Sodium Chloride (Sodium Chloride 0.9% 10 Ml Flush Syringe) 10 ml IV PRN PRN PRN Reason: LINE FLUSH Exam - Constitutional Vitals: Last Vital Signs Temp 98.0 F 01/21/21 12:39 Pulse 113 H 01/21/21 12:39 Resp 18 01/21/21 14:26 BP 91/51 01/21/21 14:26 Pulse Ox 96 01/21/21 12:39 Results - Labs lab Results: Laboratory Results - last 24 hr 01/20/21 01/21/21 21:40 05:43 Sodium 134 L Potassium 3.2 L Chloride 103.1 Carbon Dioxide 22 Anion Gap 12 BUN < 1 L Creatinine 0.4 L Estimated GFR > 60 BUN/Creatinine Ratio 3 Glucose 106 H POC Glucose 103 Calcium 7.8 L Phosphorus 2.70 Magnesium 1.50 L
[2021-01-22] MEDS: HEPARIN 5,000 UNIT/1 ML VIAL SUB-Q SCH ×3 (05:22→22:41)
[2021-01-22] MEDS: D5NS W/KCL 20 MEQ 20 MEQ/1,000 ML BAG IV SCH (05:26)
[2021-01-22 06:36] LABS: Hematocrit 27.7 % (30.3-42.9); Hemoglobin 9.7 gm/dl (10.1-14.3); Mean Corpuscular HGB Conc 35 % (30-34); Mean Corpuscular Volume 95 fl (79-97); Platelet Count 205 K/mm3 (140-440); Red Blood Count 2.92 M/mm3 (3.65-5.03)
[2021-01-22 06:53] LABS: Blood Urea Nitrogen 2 mg/dL (7-17); Calcium 8.6 mg/dL (8.4-10.2); Hemolysis Index 2; Iron 61 ug/dL (37-170); Total Iron Binding Capacity 130 mcg/dL (250-450)
[2021-01-22 06:59] LABS: BUN/Creatinine Ratio 4
--- NOTE | 2021-01-22 08:09 | Progress Note ---
Assessment and Plan Assessment and plan: Hypotension Hypokalemia Lung CA Cervical CA Cholelithiasis without acute cholecystitis Abnormal EKG/prolonged QT Elevated D-dimer 01/15/2021. This is a follow-up from an admission earlier this morning. Await cardiology consultation. Continue IV fluid hydration. Follow-up echocardiogram. 01/16/2021. Prolonged QT secondary to hypokalemia/hypocalcemia. Replace potassium and magnesium per cardiology recommendations. Correct hypocalcemia. Follow-up echocardiogram. COVID-19 negative. Patient with elevated D-dimer but CTA of chest also negative. Transfer to telemetry. 01/17/2021 Patient is 50 yo with cervical cancer, lung cancer. She also has prolonged QT interval. Cardiology following. QTc 465, improving. I discussed case with cardiology 01/18/2021 Patient is 50 yo with cervical cancer, lung cancer. She is followed at [facility] and tells me she last saw her doctors last year. QT interval improving QT 357 and QTc 469 Patient also has hypokalemia, hypomagnesemia and hypophosphatemia. Will replete all and recheck. 01/19/2021 Patient is 50 yo with cervical cancer, lung cancer. Hypokalemia resolved. Phosphorus level still low. Patient has gallstones and was asking if it needs to be removed. Nausea, vomited 2 times yesterday. GI consulted. 01/20/2021 Patient is 50 yo with cervical cancer , lung cancer. HIDA scan abnormal. GI recommends cholecystectomy. Consult Surgeon. I had a family meeting with son, Dave and daughter, Oksana in room and discussed management plan. 01/21/2021 Patient is 50 yo with cervical cancer, lung cancer. Had abnormal HIDA scan for lap cholecystectomy. Low Potassium. low Mg. Replacement ordered. BP low so started on Midodrine. Change iv fluid to D5NS with Potassium 01/22/2021 Patient is 50 yo with cervical cancer, lung cancer. Had abnormal HIDA scan , so is for laparoscopic cholecystectomy tomorrow, Saturday. patient has had muyltiple electrolyte abnormalities, and is being replaced. QT interval had normalized. Patient appears depressed. Consult Psych. History Interval history: Generalized weakness Nausea and vomiting Hospitalist Physical - Physical exam Narrative exam: Gen: Not in acute distress, lying in bed HEENT: Normocephalic, atraumatic Neck : supple, no JVD Heart:S1 and S2 reg, no murmurs, rubs or gallop Lungs: clear to auscultation bilaterally, no wheeze Abd: Soft , non tender, non distended, normal bowel sounds Ext: No edema, no clubbing, no cyanosis Neuro: Awake,alert - Constitutional Vitals: Temp Pulse Resp BP Pulse Ox 98.5 F 95 H 18 98/67 98 01/21/21 21:28 01/21/21 21:28 01/21/21 21:28 01/21/21 21:28 01/21/21 23:00 General appearance: Present: no acute distress HEART Score - HEART Score Troponin: Troponin T < 0.010 ng/mL (0.00-0.029) 01/15/21 11:41 Results - Labs CBC & Chem 7: 01/22/21 05:44 01/22/21 05:44 Labs: Laboratory Last Values WBC 4.7 K/mm3 (4.5-11.0) 01/22/21 05:44 RBC 2.92 M/mm3 (3.65-5.03) L 01/22/21 05:44 Hgb 9.7 gm/dl (10.1-14.3) L 01/22/21 05:44 Hct 27.7 % (30.3-42.9) L 01/22/21 05:44 MCV 95 fl (79-97) 01/22/21 05:44 MCH 33 pg (28-32) H 01/22/21 05:44 MCHC 35 % (30-34) H 01/22/21 05:44 RDW 14.0 % (13.2-15.2) 01/22/21 05:44 Plt Count 205 K/mm3 (140-440) 01/22/21 05:44 Lymph % (Auto) 27.3 % (13.4-35.0) 01/15/21 02:32 Turner % (Auto) 7.1 % (0.0-7.3) 01/15/21 02:32 Eos % (Auto) 0.2 % (0.0-4.3) 01/15/21 02:32 Baso % (Auto) 0.5 % (0.0-1.8) 01/15/21 02:32 Lymph # (Auto) 1.4 K/mm3 (1.2-5.4) 01/15/21 02:32 Turner # (Auto) 0.4 K/mm3 (0.0-0.8) 01/15/21 02:32 Eos # (Auto) 0.0 K/mm3 (0.0-0.4) 01/15/21 02:32 Baso # (Auto) 0.0 K/mm3 (0.0-0.1) 01/15/21 02:32 Add Manual Diff Complete 01/16/21 02:12 Total Counted 100 01/16/21 02:12 Seg Neutrophils % 64.9 % (40.0-70.0) 01/15/21 02:32 Seg Neuts % (Manual) 77.0 % (40.0-70.0) H 01/16/21 02:12 Band Neutrophils % 1.0 % 01/16/21 02:12 Lymphocytes % (Manual) 15.0 % (13.4-35.0) 01/16/21 02:12 Monocytes % (Manual) 6.0 % (0.0-7.3) 01/16/21 02:12 Basophils % (Manual) 1.0 % (0.0-1.8) 01/16/21 02:12 Nucleated RBC % Not Reportable 01/16/21 02:12 Seg Neutrophils # 3.3 K/mm3 (1.8-7.7) 01/15/21 02:32 Seg Neutrophils # Man 3.5 K/mm3 (1.8-7.7) 01/16/21 02:12 Band Neutrophils # 0.0 K/mm3 01/16/21 02:12 Lymphocytes # (Manual) 0.7 K/mm3 (1.2-5.4) L 01/16/21 02:12 Abs React Lymphs (Man) 0.0 K/mm3 01/16/21 02:12 Monocytes # (Manual) 0.3 K/mm3 (0.0-0.8) 01/16/21 02:12 Eosinophils # (Manual) 0.0 K/mm3 (0.0-0.4) 01/16/21 02:12 Basophils # (Manual) 0.0 K/mm3 (0.0-0.1) 01/16/21 02:12 Metamyelocytes # 0.0 K/mm3 01/16/21 02:12 Myelocytes # 0.0 K/mm3 01/16/21 02:12 Promyelocytes # 0.0 K/mm3 01/16/21 02:12 Blast Cells # 0.0 K/mm3 01/16/21 02:12 WBC Morphology Not Reportable 01/16/21 02:12 Hypersegmented Neuts Not Reportable 01/16/21 02:12 Hyposegmented Neuts Not Reportable 01/16/21 02:12 Hypogranular Neuts Not Reportable 01/16/21 02:12 Smudge Cells Not Reportable 01/16/21 02:12 Toxic Granulation Not Reportable 01/16/21 02:12 Toxic Vacuolation Not Reportable 01/16/21 02:12 Dohle Bodies Not Reportable 01/16/21 02:12 Pelger-Huet Anomaly Not Reportable 01/16/21 02:12 Alonzo Rods Not Reportable 01/16/21 02:12 Platelet Estimate Consistent w auto 01/16/21 02:12 Clumped Platelets Not Reportable 01/16/21 02:12 Plt Clumps, EDTA Not Reportable 01/16/21 02:12 Large Platelets Not Reportable 01/16/21 02:12 Giant Platelets Not Reportable 01/16/21 02:12 Platelet Satelliting Not Reportable 01/16/21 02:12 Plt Morphology Comment Not Reportable 01/16/21 02:12 RBC Morphology Not Reportable 01/16/21 02:12 Dimorphic RBCs Not Reportable 01/16/21 02:12 Polychromasia Not Reportable 01/16/21 02:12 Hypochromasia Not Reportable 01/16/21 02:12 Poikilocytosis Not Reportable 01/16/21 02:12 Anisocytosis 1+ 01/16/21 02:12 Microcytosis Not Reportable 01/16/21 02:12 Macrocytosis Not Reportable 01/16/21 02:12 Spherocytes Not Reportable 01/16/21 02:12 Pappenheimer Bodies Not Reportable 01/16/21 02:12 Sickle Cells Not Reportable 01/16/21 02:12 Target Cells Not Reportable 01/16/21 02:12 Tear Drop Cells Not Reportable 01/16/21 02:12 Ovalocytes Not Reportable 01/16/21 02:12 Helmet Cells Not Reportable 01/16/21 02:12 [place] Bodies Not Reportable 01/16/21 02:12 [place] Rings Not Reportable 01/16/21 02:12 Kem[place] Cells Not Reportable 01/16/21 02:12 Bite Cells Not Reportable 01/16/21 02:12 Crenated Cell Not Reportable 01/16/21 02:12 Elliptocytes Not Reportable 01/16/21 02:12 Acanthocytes (Spur) Not Reportable 01/16/21 02:12 Rouleaux Not Reportable 01/16/21 02:12 Hemoglobin C Crystals Not Reportable 01/16/21 02:12 Schistocytes Not Reportable 01/16/21 02:12 Malaria parasites Not Reportable 01/16/21 02:12 Calvin Bodies Not Reportable 01/16/21 02:12 Hem Pathologist Commnt No 01/16/21 02:12 PT 16.5 Sec. (12.2-14.9) H 01/16/21 02:12 INR 1.27 (0.87-1.13) H 01/16/21 02:12 APTT 26.4 Sec. (24.2-36.6) 01/15/21 02:32 D-Dimer 1101.34 ng/mlDDU (0-234) H 01/15/21 04:51 Sodium 139 mmol/L (137-145) 01/22/21 05:44 Potassium 3.4 mmol/L (3.6-5.0) L 01/22/21 05:44 Chloride 107.9 mmol/L (98-107) H 01/22/21 05:44 Carbon Dioxide 21 mmol/L (22-30) L 01/22/21 05:44 Anion Gap 14 mmol/L 01/22/21 05:44 BUN 2 mg/dL (7-17) L 01/22/21 05:44 Creatinine 0.5 mg/dL (0.6-1.2) L 01/22/21 05:44 Estimated GFR > 60 ml/min 01/22/21 05:44 BUN/Creatinine Ratio 4 % 01/22/21 05:44 Glucose 95 mg/dL (65-100) 01/22/21 05:44 POC Glucose 112 mg/dL (70-105) H 01/22/21 07:38 Lactic Acid 1.80 mmol/L (0.7-2.0) 01/15/21 02:32 Calcium 8.6 mg/dL (8.4-10.2) 01/22/21 05:44 Phosphorus 2.70 mg/dL (2.5-4.5) 01/21/21 05:43 Magnesium 2.10 mg/dL (1.7-2.3) 01/22/21 05:44 Iron 61 ug/dL (37-170) 01/22/21 05:44 TIBC 130 mcg/dL (250-450) L 01/22/21 05:44 Ferritin 630.5 ng/mL (10.0-200.0) H 01/15/21 04:51 Total Bilirubin 1.50 mg/dL (0.1-1.2) H 01/17/21 15:12 Direct Bilirubin 0.6 mg/dL (0-0.2) H 01/15/21 02:32 Indirect Bilirubin 1.3 mg/dL 01/15/21 02:32 AST 26 units/L (5-40) 01/17/21 15:12 ALT 32 units/L (7-56) 01/17/21 15:12 Alkaline Phosphatase 72 units/L (35-129) 01/17/21 15:12 Lactate Dehydrogenase 209 units/L (91-180) H 01/22/21 05:44 Troponin T < 0.010 ng/mL (0.00-0.029) 01/15/21 11:41 C-Reactive Protein 0.30 mg/dL (0.00-1.30) 01/15/21 04:51 Total Protein 6.2 g/dL (6.3-8.2) L 01/17/21 15:12 Albumin 3.5 g/dL (3.9-5) L 01/17/21 15:12 Albumin/Globulin Ratio 1.3 % 01/17/21 15:12 Lipase 66 units/L (13-60) H 01/15/21 02:32 Procalcitonin 11.57 ng/mL (<0.15) 01/15/21 04:51 Coronavirus (PCR) Negative (Negative) 01/15/21 08:15 Ramirez/IV: Voiding Method Toilet Active Medications - Current Medications Current Medications: Generic Name Dose Route Start Last Admin Trade Name Freq PRN Reason Stop Dose Admin Acetaminophen 650 mg 01/15/21 06:24 Acetaminophen 325 Mg Tab PO Q6H PRN Pain MILD(1-3)/Fever >100.5/ALMEIDA Benzocaine/Menthol 1 each 01/17/21 14:30 01/17/21 16:19 Benzocaine/Menthol Lozenge MM 1 each Q2HR PRN Administration Sore Throat Heparin Sodium (Porcine) 5,000 unit 01/15/21 14:00 01/22/21 05:22 Heparin 5,000 Unit/1 Ml Vial SUB-Q 5,000 unit Q8HR AHSAN Administration Potassium Chloride/Dextrose/Sod Cl 20 meq in 1,000 mls @ 75 mls/hr 01/21/21 08:00 01/22/21 05:26 D5w/Ns W/Kcl 20meq IV 75 mls/hr DIRECT AHSAN Administration Magnesium Hydroxide 30 ml 01/15/21 06:24 Magnesium Hydroxide (Mom) Oral Liqd Udc PO Q4H PRN Constipation Midodrine 10 mg 01/21/21 08:00 01/21/21 16:41 Midodrine 5 Mg Tab PO 10 mg TID@0800,1200,1600 AHSAN Administration Morphine Sulfate 2 mg 01/15/21 06:24 Morphine 2 Mg/1 Ml Inj IV Q4H PRN Pain, Moderate (4-6) Morphine Sulfate 4 mg 01/15/21 06:24 Morphine 4 Mg/1 Ml Inj IV Q4H PRN Pain , Severe (7-10) Ondansetron HCl 4 mg 01/15/21 06:24 01/21/21 14:50 Ondansetron 4 Mg/2 Ml Inj IV 4 mg Q8H PRN Administration Nausea And Vomiting Pantoprazole Sodium 40 mg 01/21/21 16:00 01/21/21 15:11 Pantoprazole 40 Mg Inj IV 40 mg QDAY AHSAN Administration Sodium Chloride 10 ml 01/15/21 10:00 01/21/21 21:25 Sodium Chloride 0.9% 10 Ml Flush Syringe IV 10 ml BID AHSAN Administration Sodium Chloride 10 ml 01/15/21 06:24 Sodium Chloride 0.9% 10 Ml Flush Syringe IV PRN PRN LINE FLUSH Nutrition/Malnutrition Assess - Dietary Evaluation Nutrition/Malnutrition Findings: Nutrition Notes Start: 01/15/21 09:31 Freq: Status: Active Protocol: Document 01/20/21 14:07 DUNG (Rec: 01/20/21 14:07 DUNG [id number]) Nutrition Notes Initial or Follow up Brief Note Other Pertinent Diagnosis hx cervical and lung cancer, mass in lung, generalized weakness Current Diet regular Subjective/Other Information Pt not in room at time of visit. Nutrition Intervention Follow-Up By: 01/23/21 Additional Comments FU for intakes and ONS tolerance
[2021-01-22] MEDS: MIDODRINE 5 MG TAB PO SCH ×3 (08:13→16:08)
[2021-01-22] MEDS: PANTOPRAZOLE 40 MG INJ IV SCH (10:12)
--- NOTE | 2021-01-22 11:23 | Consultation ---
History of Present Illness - Reason for Consult Consult date: 01/22/21 Reason for consult: MHE - History of Present Psychiatric Illness Yadira King is a 50y/o female patient who states she presented to the hospital for stomach pains and N/V. During my evaluation, the patient is a/o x 3. She is calm and cooperative. She is polite. She makes fair eye contact. She understood the psych eval because she states "the says I look depressed, but I'm not" in which the patient states again when asked, "nahh, I'm not depressed." The patient denies any psych history. She also denies ever being on any type of psych medications or seeing a therapist. The patient denies SI. She says "no, I don't want to ." She also denies homicidal thoughts. She denies any past attempt of suicide. The patient denies hallucinations of any kind. She denies any illicit drug use, alcohol or nicotine. Diagnoses: Depression Suicide attempts or Self-harm behavior: Denies Prior psychiatric hospitalizations: Denies Substance Abuse history: Denies Previous psychiatric medications tried: Denies Outpatient treatment: Denies PAST MEDICAL HISTORY: None reported Family Psychiatric History: None reported or documented SOCIAL HISTORY Marital Status: Single Living Arrangements: alone Employment Status: Employed Access to guns/weapons: Denies Education: History of Abuse: none reported Legal History: none reported REVIEW OF SYSTEMS Constitutional: Negative for weight loss ENT: Negative for stridor Respiratory: Negative for cough or hemoptysis All other systems reviewed and are negative MENTAL STATUS EXAMINATION General Appearance and Behavior: Age appropriate, good hygiene, wearing appropriate clothes, calm, cooperative, polite, fair eye contact Cooperation: Participating/engaged Psychomotor Behavior: normal Mood: alright Affect and affective range: congruent with mood Thought Process: goal oriented Thought Content: None Speech: Normal volume, Regular rate and rhythm, Suicidal Ideation: Denies Homicidal Ideation: Denies Hallucinations: Denies Delusions: None elicited Impulse Control: Normal Insight and Judgment: Normal insight and judgment Memory: Normal Attention: Normal Orientation: Alert, oriented Assessment and Plan (1) Mental Health Evaluation Treatment Plan No meds started Medical: Per primary Sitter: Defer to primary Disposition: Do not recommend acute psychiatric inpatient treatment. Will sign off. Thanks. Case staffed with Dr. Edmonds. Medications and Allergies Allergies Allergy/AdvReac Type Severity Reaction Status Date / Time No Known Allergies Allergy Verified 07/27/20 13:43 Home Medications Medication Instructions Recorded Confirmed Last Taken Type Ketorolac [Toradol] 10 mg PO Q6H PRN #20 tablet 07/27/20 01/15/21 Unknown Rx methOCARBAMOL [Robaxin TAB] 750 mg PO Q8H PRN #30 tablet 07/27/20 01/15/21 Unknown Rx Active Meds: Active Medications Acetaminophen (Acetaminophen 325 Mg Tab) 650 mg PO Q6H PRN PRN Reason: Pain MILD(1-3)/Fever >100.5/ALMEIDA Benzocaine/Menthol (Benzocaine/Menthol Lozenge) 1 each MM Q2HR PRN PRN Reason: Sore Throat Last Admin: 01/17/21 16:19 Dose: 1 each Documented by: Heparin Sodium (Porcine) (Heparin 5,000 Unit/1 Ml Vial) 5,000 unit SUB-Q Q8HR [facility] Last Admin: 01/22/21 05:22 Dose: 5,000 unit Documented by: Potassium Chloride/Dextrose/Sod Cl (D5w/Ns W/Kcl 20meq) 20 meq in 1,000 mls @ 75 mls/hr IV DIRECT [facility] Last Admin: 01/22/21 05:26 Dose: 75 mls/hr Documented by: Magnesium Hydroxide (Magnesium Hydroxide (Mom) Oral Liqd Udc) 30 ml PO Q4H PRN PRN Reason: Constipation Midodrine (Midodrine 5 Mg Tab) 10 mg PO TID@0800,1200,1600 [facility] Last Admin: 01/22/21 08:13 Dose: 10 mg Documented by: Morphine Sulfate (Morphine 2 Mg/1 Ml Inj) 2 mg IV Q4H PRN PRN Reason: Pain, Moderate (4-6) Morphine Sulfate (Morphine 4 Mg/1 Ml Inj) 4 mg IV Q4H PRN PRN Reason: Pain , Severe (7-10) Ondansetron HCl (Ondansetron 4 Mg/2 Ml Inj) 4 mg IV Q8H PRN PRN Reason: Nausea And Vomiting Last Admin: 01/21/21 14:50 Dose: 4 mg Documented by: Pantoprazole Sodium (Pantoprazole 40 Mg Inj) 40 mg IV QDAY [facility] Last Admin: 08/01/21 10:12 Dose: 40 mg Documented by: Sodium Chloride (Sodium Chloride 0.9% 10 Ml Flush Syringe) 10 ml IV BID AHSAN Last Admin: 01/22/21 10:12 Dose: 10 ml Documented by: Sodium Chloride (Sodium Chloride 0.9% 10 Ml Flush Syringe) 10 ml IV PRN PRN PRN Reason: LINE FLUSH Mental Status Exam - Vital signs Last Vital Signs Temp 98.0 F 01/22/21 07:40 Pulse 98 H 01/22/21 07:40 Resp 18 01/22/21 11:00 BP 94/58 01/22/21 07:40 Pulse Ox 98 01/22/21 11:00 Results Result Diagrams: 01/22/21 05:44 01/22/21 05:44 Abnormal lab results 01/22/21 01/22/21 01/22/21 Range/Units 05:44 05:44 07:38 RBC 2.92 L (3.65-5.03) M/mm3 Hgb 9.7 L (10.1-14.3) gm/dl Hct 27.7 L (30.3-42.9) % MCH 33 H (28-32) pg MCHC 35 H (30-34) % Potassium 3.4 L (3.6-5.0) mmol/L Chloride 107.9 H (98-107) mmol/L Carbon Dioxide 21 L (22-30) mmol/L BUN 2 L (7-17) mg/dL Creatinine 0.5 L (0.6-1.2) mg/dL POC Glucose 112 H (70-105) mg/dL TIBC 130 L (250-450) mcg/dL Lactate Dehydrogenase 209 H (91-180) units/L All other labs normal.
--- NOTE | 2021-01-22 12:52 | Progress Note ---
Assessment and Plan Prolonged QTc related to hypokalemia and hypomagnesemia: Improved based on last ECG Hypokalemia and hypomagnesemia Abdominal pain and possible cholecystitis Lung CA Cervical CA Recommend: Continue to aggressively replete electrolytes From cardiac perspective, may proceed with cholecystectomy. Lela-operative cardiac risk will be low. Subjective Date of service: 01/22/21 Interval history: No acute events Objective Vital Signs Temp Pulse Resp BP Pulse Ox 01/22/21 11:00 18 98 01/22/21 10:00 97 H 01/22/21 07:40 98.0 F 98 H 16 94/58 97 01/22/21 04:42 98.2 F 112 H 20 101/63 100 01/21/21 23:00 98 01/21/21 21:28 98.5 F 95 H 18 98/67 94 01/21/21 16:40 99.5 F 102 H 18 82/51 100 01/21/21 14:26 18 91/51 - Physical Examination General: No Apparent Distress HEENT: Positive: PERRL Neck: Positive: neck supple Cardiac: Positive: Reg Rate and Rhythm Lungs: Positive: clear to auscultation Neuro: Positive: Grossly Intact, Weakness Abdomen: Positive: Soft Skin: Positive: Clear Extremities: Absent: edema - Labs and Meds Cardiac Enzymes 01/22/21 Range/Units 05:44 Lactate Dehydrogenase 209 H (91-180) units/L CBC 01/22/21 Range/Units 05:44 WBC 4.7 (4.5-11.0) K/mm3 RBC 2.92 L (3.65-5.03) M/mm3 Hgb 9.7 L (10.1-14.3) gm/dl Hct 27.7 L (30.3-42.9) % Plt Count 205 (140-440) K/mm3 Comprehensive Metabolic Panel 01/22/21 Range/Units 05:44 Sodium 139 (137-145) mmol/L Potassium 3.4 L (3.6-5.0) mmol/L Chloride 107.9 H (98-107) mmol/L Carbon Dioxide 21 L (22-30) mmol/L BUN 2 L (7-17) mg/dL Creatinine 0.5 L (0.6-1.2) mg/dL Glucose 95 (65-100) mg/dL Calcium 8.6 (8.4-10.2) mg/dL
--- NOTE | 2021-01-22 13:22 | Progress Note ---
Assessment and Plan 30-year-old female with cholelithiasis and probable cholecystitis. Afebrile and stable with persistent abdominal pain nausea and vomiting. Discussed procedure Performed: Lap cholecystectomy with patient including risk and benefits. Stephany ent is agreeable to consent for procedure. Procedure Performed: Lap cholecystectomy with intraoperative cholangiogram planned for Saturday. Patient made n.p.o. after midnight. Patient signed informed consent all questions were answered. Subjective Date of service: 01/22/21 Narrative: No acute events overnight. Patient says she is feeling a little better compared to yesterday however still continues have abdominal pain and nausea. Objective Vital Signs - 12hr 01/22/21 01/22/21 01/22/21 04:42 07:40 10:00 Temperature 98.2 F 98.0 F Pulse Rate 112 H 98 H 97 H Respiratory 20 16 Rate Blood Pressure 101/63 94/58 O2 Sat by Pulse 100 97 Oximetry 01/22/21 11:00 Temperature Pulse Rate Respiratory 18 Rate Blood Pressure O2 Sat by Pulse 98 Oximetry - General physical appearance well developed, no distress, moderate pain - Respiratory normal expansion, normal respiratory effort - Abdomen soft, not distended, not rebound, not guarding, other (Tenderness to deep palpation in the epigastric and right upper quadrant areas) - Labs 01/22/21 05:44 01/22/21 05:44 Diabetes panel 01/22/21 Range/Units 05:44 Sodium 139 (137-145) mmol/L Potassium 3.4 L (3.6-5.0) mmol/L Chloride 107.9 H (98-107) mmol/L Carbon Dioxide 21 L (22-30) mmol/L BUN 2 L (7-17) mg/dL Creatinine 0.5 L (0.6-1.2) mg/dL Glucose 95 (65-100) mg/dL Calcium 8.6 (8.4-10.2) mg/dL Calcium panel 01/22/21 Range/Units 05:44 Calcium 8.6 (8.4-10.2) mg/dL Pituitary panel 01/22/21 Range/Units 05:44 Sodium 139 (137-145) mmol/L Potassium 3.4 L (3.6-5.0) mmol/L Chloride 107.9 H (98-107) mmol/L Carbon Dioxide 21 L (22-30) mmol/L BUN 2 L (7-17) mg/dL Creatinine 0.5 L (0.6-1.2) mg/dL Glucose 95 (65-100) mg/dL Calcium 8.6 (8.4-10.2) mg/dL Adrenal panel 01/22/21 Range/Units 05:44 Sodium 139 (137-145) mmol/L Potassium 3.4 L (3.6-5.0) mmol/L Chloride 107.9 H (98-107) mmol/L Carbon Dioxide 21 L (22-30) mmol/L BUN 2 L (7-17) mg/dL Creatinine 0.5 L (0.6-1.2) mg/dL Glucose 95 (65-100) mg/dL Calcium 8.6 (8.4-10.2) mg/dL
[2021-01-22] MEDS: ONDANSETRON 4 MG/2 ML INJ IV PRN (22:41)
[2021-01-23 05:54] LABS: Blood Urea Nitrogen 2 mg/dL (7-17); Calcium 8.5 mg/dL (8.4-10.2); Hemolysis Index 7
[2021-01-23 06:01] LABS: BUN/Creatinine Ratio 5
[2021-01-23] MEDS: HEPARIN 5,000 UNIT/1 ML VIAL SUB-Q SCH ×3 (06:40→22:55)
[2021-01-23] MEDS: MIDODRINE 5 MG TAB PO SCH ×3 (08:48→16:53)
--- NOTE | 2021-01-23 08:51 | Progress Note ---
Assessment and Plan Assessment and plan: 50-year-old -[place] female with known history of cervical and lung cancer currently in remission presenting to the emergency room today complaining of generalized weakness which has been getting worse over the past few weeks. She has also been having persistent nausea and vomiting over the past 2 months. Upon arrival of EMS patient's blood pressure was said to be 90s systolic and 70s diastolic patient was said to be tachycardic with heart rate of about 110/min. Patient had a bolus of IV fluid with significant improvement in her blood pressure. She denies any fever or chills, no chest pain or shortness of breath, but has been having about 4-5 episodes of vomiting per day, she has had associated epigastric abdominal discomfort.. She has been taking some Zofran which does not seem to be giving her any relief. Patient denies any sick contacts and no recent travel. She denies any contact with anyone with COVID-19. She has not been vaccinated against COVID-19. Hypotension Hypokalemia Lung CA Cervical CA Cholelithiasis with abnormal HIDA scan Abnormal EKG/prolonged QT Elevated D-dimer 01/15/2021. This is a follow-up from an admission earlier this morning. Await cardiology consultation. Continue IV fluid hydration. Follow-up echocardiogram. 01/16/2021. Prolonged QT secondary to hypokalemia/hypocalcemia. Replace potassium and magnesium per cardiology recommendations. Correct hypocalcemia. Follow-up echocardiogram. COVID-19 negative. Patient with elevated D-dimer but CTA of chest also negative. Transfer to telemetry. 01/17/2021 Patient is 50 yo with cervical cancer, lung cancer. She also has prolonged QT interval. Cardiology following. QTc 465, improving. I discussed case with cardiology 01/18/2021 Patient is 50 yo with cervical cancer, lung cancer. She is followed at [facility] and tells me she last saw her doctors last year. QT interval improving QT 357 and QTc 469 Patient also has hypokalemia, hypomagnesemia and hypophosphatemia. Will replete all and recheck. 01/19/2021 Patient is 50 yo with cervical cancer, lung cancer. Hypokalemia reso lved. Phosphorus level still low. Patient has gallstones and was asking if it needs to be removed. Nausea, vomited 2 times yesterday. GI consulted. 01/20/2021 Patient is 50 yo with cervical cancer , lung cancer. HIDA scan abnormal. GI recommends cholecystectomy. Consult Surgeon. I had a family meeting with son, Dave and daughterOksana in room and discussed management plan. 01/21/2021 Patient is 50 yo with cervical cancer, lung cancer. Had abnormal HIDA scan for lap cholecystectomy. Low Potassium. low Mg. Replacement ordered. BP low so started on Midodrine. Change iv fluid to D5NS with Potassium 01/22/2021 Patient is 50 yo with cervical cancer, lung cancer. Had abnormal HIDA scan , so is for laparoscopic cholecystectomy tomorrow, Saturday. patient has had muyltiple electrolyte abnormalities, and is being replaced. QT interval had normalized. Patient appears depressed. Consult Psych. 01/23/21 Patient is 50 yo with cervical cancer, lung cancer. Had abnormal HIDA scan , so is for laparoscopic cholecystectomy today 01/23/21. Patient had QT prolongation was managed by Cardiology now resolved. She has had hypokalemia, hypomagnesemia, hypophosphatemia and has been replaced multiple times. Her Oncologist at [facility] so need to follow [facility] on discharge. Dr. Carrillo consulted here. She has been very weak, has been hypotensive, so started on Midodrine I have discussed with family multiple times. Discharge planning depends on course post cholecystectomy and BP stability. History Interval history: Generalized weakness Nausea and vomiting For cholecystectomy today Hospitalist Physical - Physical exam Narrative exam: Gen: Not in acute distress, lying in bed HEENT: Normocephalic, atraumatic Neck : supple, no JVD Heart:S1 and S2 reg, no murmurs, rubs or gallop Lungs: clear to auscultation bilaterally, no wheeze Abd: Soft , non tender, non distended, normal bowel sounds Ext: No edema, no clubbing, no cyanosis Neuro: Awake,alert - Constitutional Vitals: Temp Pulse Resp BP Pulse Ox 98.3 F 117 H 16 104/62 97 01/23/21 06:42 01/23/21 06:42 01/23/21 06:42 01/23/21 06:42 01/23/21 06:42 General appearance: Present: no acute distress HEART Score - HEART Score Troponin: Troponin T < 0.010 ng/mL (0.00-0.029) 01/15/21 11:41 Results - Labs CBC & Chem 7: 01/22/21 05:44 01/23/21 04:56 Labs: Laboratory Last Values WBC 4.7 K/mm3 (4.5-11.0) 01/22/21 05:44 RBC 2.92 M/mm3 (3.65-5.03) L 01/22/21 05:44 Hgb 9.7 gm/dl (10.1-14.3) L 01/22/21 05:44 Hct 27.7 % (30.3-42.9) L 01/22/21 05:44 MCV 95 fl (79-97) 01/22/21 05:44 MCH 33 pg (28-32) H 01/22/21 05:44 MCHC 35 % (30-34) H 01/22/21 05:44 RDW 14.0 % (13.2-15.2) 01/22/21 05:44 Plt Count 205 K/mm3 (140-440) 01/22/21 05:44 Lymph % (Auto) 27.3 % (13.4-35.0) 01/15/21 02:32 Blackford % (Auto) 7.1 % (0.0-7.3) 01/15/21 02:32 Eos % (Auto) 0.2 % (0.0-4.3) 01/15/21 02:32 Baso % (Auto) 0.5 % (0.0-1.8) 01/15/21 02:32 Lymph # (Auto) 1.4 K/mm3 (1.2-5.4) 01/15/21 02:32 Blackford # (Auto) 0.4 K/mm3 (0.0-0.8) 01/15/21 02:32 Eos # (Auto) 0.0 K/mm3 (0.0-0.4) 01/15/21 02:32 Baso # (Auto) 0.0 K/mm3 (0.0-0.1) 01/15/21 02:32 Add Manual Diff Complete 01/16/21 02:12 Total Counted 100 01/16/21 02:12 Seg Neutrophils % 64.9 % (40.0-70.0) 01/15/21 02:32 Seg Neuts % (Manual) 77.0 % (40.0-70.0) H 01/16/21 02:12 Band Neutrophils % 1.0 % 01/16/21 02:12 Lymphocytes % (Manual) 15.0 % (13.4-35.0) 01/16/21 02:12 Monocytes % (Manual) 6.0 % (0.0-7.3) 01/16/21 02:12 Basophils % (Manual) 1.0 % (0.0-1.8) 01/16/21 02:12 Nucleated RBC % Not Reportable 01/16/21 02:12 Seg Neutrophils # 3.3 K/mm3 (1.8-7.7) 01/15/21 02:32 Seg Neutrophils # Man 3.5 K/mm3 (1.8-7.7) 01/16/21 02:12 Band Neutrophils # 0.0 K/mm3 01/16/21 02:12 Lymphocytes # (Manual) 0.7 K/mm3 (1.2-5.4) L 01/16/21 02:12 Abs React Lymphs (Man) 0.0 K/mm3 01/16/21 02:12 Monocytes # (Manual) 0.3 K/mm3 (0.0-0.8) 01/16/21 02:12 Eosinophils # (Manual) 0.0 K/mm3 (0.0-0.4) 01/16/21 02:12 Basophils # (Manual) 0.0 K/mm3 (0.0-0.1) 01/16/21 02:12 Metamyelocytes # 0.0 K/mm3 01/16/21 02:12 Myelocytes # 0.0 K/mm3 01/16/21 02:12 Promyelocytes # 0.0 K/mm3 01/16/21 02:12 Blast Cells # 0.0 K/mm3 01/16/21 02:12 WBC Morphology Not Reportable 01/16/21 02:12 Hypersegmented Neuts Not Reportable 01/16/21 02:12 Hyposegmented Neuts Not Reportable 01/16/21 02:12 Hypogranular Neuts Not Reportable 01/16/21 02:12 Smudge Cells Not Reportable 01/16/21 02:12 Toxic Granulation Not Reportable 01/16/21 02:12 Toxic Vacuolation Not Reportable 01/16/21 02:12 Dohle Bodies Not Reportable 01/16/21 02:12 Pelger-Huet Anomaly Not Reportable 01/16/21 02:12 Alonzo Rods Not Reportable 01/16/21 02:12 Platelet Estimate Consistent w auto 01/16/21 02:12 Clumped Platelets Not Reportable 01/16/21 02:12 Plt Clumps, EDTA Not Reportable 01/16/21 02:12 Large Platelets Not Reportable 01/16/21 02:12 Giant Platelets Not Reportable 01/16/21 02:12 Platelet Satelliting Not Reportable 01/16/21 02:12 Plt Morphology Comment Not Reportable 01/16/21 02:12 RBC Morphology Not Reportable 01/16/21 02:12 Dimorphic RBCs Not Reportable 01/16/21 02:12 Polychromasia Not Reportable 01/16/21 02:12 Hypochromasia Not Reportable 01/16/21 02:12 Poikilocytosis Not Reportable 01/16/21 02:12 Anisocytosis 1+ 01/16/21 02:12 Microcytosis Not Reportable 01/16/21 02:12 Macrocytosis Not Reportable 01/16/21 02:12 Spherocytes Not Reportable 01/16/21 02:12 Pappenheimer Bodies Not Reportable 01/16/21 02:12 Sickle Cells Not Reportable 01/16/21 02:12 Target Cells Not Reportable 01/16/21 02:12 Tear Drop Cells Not Reportable 01/16/21 02:12 Ovalocytes Not Reportable 01/16/21 02:12 Helmet Cells Not Reportable 01/16/21 02:12 [place] Bodies Not Reportable 01/16/21 02:12 Barton Rings Not Reportable 01/16/21 02:12 Apollo Cells Not Reportable 01/16/21 02:12 Bite Cells Not Reportable 01/16/21 02:12 Crenated Cell Not Reportable 01/16/21 02:12 Elliptocytes Not Reportable 01/16/21 02:12 Acanthocytes (Spur) Not Reportable 01/16/21 02:12 Rouleaux Not Reportable 01/16/21 02:12 Hemoglobin C Crystals Not Reportable 01/16/21 02:12 Schistocytes Not Reportable 01/16/21 02:12 Malaria parasites Not Reportable 01/16/21 02:12 Calvin Bodies Not Reportable 01/16/21 02:12 Hem Pathologist Commnt No 01/16/21 02:12 PT 16.5 Sec. (12.2-14.9) H 01/16/21 02:12 INR 1.27 (0.87-1.13) H 01/16/21 02:12 APTT 26.4 Sec. (24.2-36.6) 01/15/21 02:32 D-Dimer 1101.34 ng/mlDDU (0-234) H 01/15/21 04:51 Sodium 138 mmol/L (137-145) 01/23/21 04:56 Potassium 3.4 mmol/L (3.6-5.0) L 01/23/21 04:56 Chloride 107.1 mmol/L (98-107) H 01/23/21 04:56 Carbon Dioxide 21 mmol/L (22-30) L 01/23/21 04:56 Anion Gap 13 mmol/L 01/23/21 04:56 BUN 2 mg/dL (7-17) L 01/23/21 04:56 Creatinine 0.4 mg/dL (0.6-1.2) L 01/23/21 04:56 Estimated GFR > 60 ml/min 01/23/21 04:56 BUN/Creatinine Ratio 5 % 01/23/21 04:56 Glucose 101 mg/dL (65-100) H 01/23/21 04:56 POC Glucose 95 mg/dL (70-105) 01/23/21 07:51 Lactic Acid 1.80 mmol/L (0.7-2.0) 01/15/21 02:32 Calcium 8.5 mg/dL (8.4-10.2) 01/23/21 04:56 Phosphorus 2.70 mg/dL (2.5-4.5) 01/21/21 05:43 Magnesium 2.10 mg/dL (1.7-2.3) 01/22/21 05:44 Iron 61 ug/dL (37-170) 01/22/21 05:44 TIBC 130 mcg/dL (250-450) L 01/22/21 05:44 Ferritin 630.5 ng/mL (10.0-200.0) H 01/15/21 04:51 Total Bilirubin 1.50 mg/dL (0.1-1.2) H 01/17/21 15:12 Direct Bilirubin 0.6 mg/dL (0-0.2) H 01/15/21 02:32 Indirect Bilirubin 1.3 mg/dL 01/15/21 02:32 AST 26 units/L (5-40) 01/17/21 15:12 ALT 32 units/L (7-56) 01/17/21 15:12 Alkaline Phosphatase 72 units/L (35-129) 01/17/21 15:12 Lactate Dehydrogenase 209 units/L (91-180) H 01/22/21 05:44 Troponin T < 0.010 ng/mL (0.00-0.029) 01/15/21 11:41 C-Reactive Protein 0.30 mg/dL (0.00-1.30) 01/15/21 04:51 Total Protein 6.2 g/dL (6.3-8.2) L 01/17/21 15:12 Albumin 3.5 g/dL (3.9-5) L 01/17/21 15:12 Albumin/Globulin Ratio 1.3 % 01/17/21 15:12 Lipase 66 units/L (13-60) H 01/15/21 02:32 Procalcitonin 11.57 ng/mL (<0.15) 01/15/21 04:51 Coronavirus (PCR) Negative (Negative) 01/15/21 08:15 Ramirez/IV: Voiding Method Bedside Commode Active Medications - Current Medications Current Medications: Generic Name Dose Route Start Last Admin Trade Name Freq PRN Reason Stop Dose Admin Acetaminophen 650 mg 01/15/21 06:24 Acetaminophen 325 Mg Tab PO Q6H PRN Pain MILD(1-3)/Fever >100.5/ALMEIDA Benzocaine/Menthol 1 each 01/17/21 14:30 01/17/21 16:19 Benzocaine/Menthol Lozenge MM 1 each Q2HR PRN Administration Sore Throat Heparin Sodium (Porcine) 5,000 unit 01/15/21 14:00 01/23/21 06:40 Heparin 5,000 Unit/1 Ml Vial SUB-Q Not Given Q8HR AHSAN Potassium Chloride/Dextrose/Sod Cl 20 meq in 1,000 mls @ 75 mls/hr 01/21/21 08:00 01/22/21 05:26 D5w/Ns W/Kcl 20meq IV 75 mls/hr DIRECT AHSAN Administration Magnesium Hydroxide 30 ml 01/15/21 06:24 Magnesium Hydroxide (Mom) Oral Liqd Udc PO Q4H PRN Constipation Midodrine 10 mg 01/21/21 08:00 01/23/21 08:48 Midodrine 5 Mg Tab PO 10 mg TID@0800,1200,1600 AHSAN Administration Morphine Sulfate 2 mg 01/15/21 06:24 Morphine 2 Mg/1 Ml Inj IV Q4H PRN Pain, Moderate (4-6) Morphine Sulfate 4 mg 01/15/21 06:24 Morphine 4 Mg/1 Ml Inj IV Q4H PRN Pain , Severe (7-10) Ondansetron HCl 4 mg 01/15/21 06:24 01/22/21 22:41 Ondansetron 4 Mg/2 Ml Inj IV 4 mg Q8H PRN Administration Nausea And Vomiting Pantoprazole Sodium 40 mg 01/21/21 16:00 01/22/21 10:12 Pantoprazole 40 Mg Inj IV 40 mg QDAY AHSAN Administration Sodium Chloride 10 ml 01/15/21 10:00 01/22/21 22:42 Sodium Chloride 0.9% 10 Ml Flush Syringe IV 10 ml BID AHSAN Administration Sodium Chloride 10 ml 01/15/21 06:24 Sodium Chloride 0.9% 10 Ml Flush Syringe IV PRN PRN LINE FLUSH Nutrition/Malnutrition Assess - Dietary Evaluation Nutrition/Malnutrition Findings: Nutrition Notes Start: 01/15/21 09:31 Freq: Status: Active Protocol: Document 01/20/21 14:07 (Rec: 01/20/21 14:07 [email or web address]) Nutrition Notes Initial or Follow up Brief Note Other Pertinent Diagnosis hx cervical and lung cancer, mass in lung, generalized weakness Current Diet regular Subjective/Other Information Pt not in room at time of visit. Nutrition Intervention Follow-Up By: 01/23/21 Additional Comments FU for intakes and ONS tolerance
[2021-01-23] MEDS: PANTOPRAZOLE 40 MG INJ IV SCH (09:06)
[2021-01-23] MEDS ORDERED: LIDOCAINE (1%) 10 MG/1 ML VIAL 20 ML MDV ONE (10:18)
[2021-01-23] MEDS ORDERED: BUPIVACAINE/PF (0.5%) 5 MG/1 ML 30 ML VIAL INFILTRATI ONE (10:19)
--- NOTE | 2021-01-23 10:38 | Electrocardiograph Report ---
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
--- NOTE | 2021-01-23 11:21 | Event Note ---
Date: 01/23/21 Ms. Christensen presents with cholecystitis and is scheduled for possible laparoscopic cholecystectomy. 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 She was noted to be hypotensive on admission with some improvement after fluid administration but has been since been started on midodrine. She complains of cough but otherwise denies compressive symptoms. I reviewed CT imaging and radiology report and discussed with surgeon. At this time, I am concerned that this patient is at risk of severe airway obstruction and/or cardiovascular collapse upon induction of general anesthesia and that these may be difficult, if not impossible to overcome. I discussed these potential complications and my concerns with the patient as well as my recommendation that alternatives to surgery be considered. All questions/concerns were addressed.
--- NOTE | 2021-01-23 12:38 | Progress Note ---
Assessment and Plan - Patient Problems (1) Prolonged Q-T interval on ECG Current Visit: Yes Status: Acute Plan to address problem: QT interval has normalized following correction of electrolyte abnormalities. (2) Pre-op evaluation Current Visit: Yes Status: Acute Plan to address problem: You may proceed with noncardiac surgery, cardiac risk is low. Subjective Date of service: 01/23/21 Interval history: Patient is comfortable, no cardiac complaints. She is planned to undergo laparoscopic cholecystectomy today. Objective Vital Signs Temp Pulse Resp BP Pulse Ox 01/23/21 10:42 99 01/23/21 06:42 98.3 F 117 H 16 104/62 97 01/23/21 00:32 98.5 F 109 H 16 111/65 96 01/22/21 23:00 18 100 01/22/21 22:00 109 H 01/22/21 20:54 97 H 100 01/22/21 20:53 98.4 F 98 H 18 103/63 100 01/22/21 13:59 98.6 F 18 102/64 - Physical Examination General: No Apparent Distress HEENT: Positive: PERRL Neck: Positive: neck supple Cardiac: Positive: Reg Rate and Rhythm Lungs: Positive: clear to auscultation Neuro: Positive: Grossly Intact, Weakness Abdomen: Positive: Soft Skin: Positive: Clear Extremities: Absent: edema - Labs and Meds Comprehensive Metabolic Panel 01/23/21 Range/Units 04:56 Sodium 138 (137-145) mmol/L Potassium 3.4 L (3.6-5.0) mmol/L Chloride 107.1 H (98-107) mmol/L Carbon Dioxide 21 L (22-30) mmol/L BUN 2 L (7-17) mg/dL Creatinine 0.4 L (0.6-1.2) mg/dL Glucose 101 H (65-100) mg/dL Calcium 8.5 (8.4-10.2) mg/dL
--- NOTE | 2021-01-23 15:47 | Progress Note ---
Assessment and Plan 30-year-old female with cholelithiasis and probable cholecystitis. Afebrile and stable with persistent abdominal pain nausea and vomiting. Patient may benefit from cholecystectomy however due to mediastinal mass patient is at a very high risk of having a high risk perioperative event concerning her airway. Consulted IR for evaluation for cholecystostomy tube. At some point patient may have a cholecystectomy however recommend having at a facility with cardiothoracic resources in case patient's airway is compromised during surgery. Would also consider sending patient for evaluation with CT surgery of mediastinal mass to determine if any intervention needs to be performed. Subjective Date of service: 01/23/21 Narrative: No acute events overnight. Patient says she feels about the same with continued abdominal pain less nausea and vomiting. Patient was scheduled for laparoscopic cholecystectomy today however procedure is canceled due to evaluation performed by anesthesia. Patient has a mediastinal mass that is around her trachea and hilum of which anesthesia believes patient is at a very high risk for loss of airway or intervention upon induction of anesthesia or during surgery. Discussed with patient the option of having cholecystostomy tube to help with symptoms of the gallbladder. Patient said she is unaware of having any mass in her mediastinum and understands the high risk involved of general anesthesia at this time. Objective Vital Signs - 12hr 01/23/21 01/23/21 06:42 10:42 Temperature 98.3 F Pulse Rate 117 H Respiratory 16 Rate Blood Pressure 104/62 O2 Sat by Pulse 97 99 Oximetry - General physical appearance well developed, no distress, moderate pain - Respiratory normal expansion, normal respiratory effort - Abdomen soft, not distended, other (Tender to palpation epigastric and right upper quadrant area) - Labs 01/22/21 05:44 01/23/21 04:56 Diabetes panel 01/23/21 Range/Units 04:56 Sodium 138 (137-145) mmol/L Potassium 3.4 L (3.6-5.0) mmol/L Chloride 107.1 H (98-107) mmol/L Carbon Dioxide 21 L (22-30) mmol/L BUN 2 L (7-17) mg/dL Creatinine 0.4 L (0.6-1.2) mg/dL Glucose 101 H (65-100) mg/dL Calcium 8.5 (8.4-10.2) mg/dL Calcium panel 01/23/21 Range/Units 04:56 Calcium 8.5 (8.4-10.2) mg/dL Pituitary panel 01/23/21 Range/Units 04:56 Sodium 138 (137-145) mmol/L Potassium 3.4 L (3.6-5.0) mmol/L Chloride 107.1 H (98-107) mmol/L Carbon Dioxide 21 L (22-30) mmol/L BUN 2 L (7-17) mg/dL Creatinine 0.4 L (0.6-1.2) mg/dL Glucose 101 H (65-100) mg/dL Calcium 8.5 (8.4-10.2) mg/dL Adrenal panel 01/23/21 Range/Units 04:56 Sodium 138 (137-145) mmol/L Potassium 3.4 L (3.6-5.0) mmol/L Chloride 107.1 H (98-107) mmol/L Carbon Dioxide 21 L (22-30) mmol/L BUN 2 L (7-17) mg/dL Creatinine 0.4 L (0.6-1.2) mg/dL Glucose 101 H (65-100) mg/dL Calcium 8.5 (8.4-10.2) mg/dL
--- NOTE | 2021-01-23 16:49 | Ultrasound Report ---
ULTRASOUND ABDOMEN, LIMITED INDICATION / CLINICAL INFORMATION: RUQ cholelithiasis. COMPARISON: CT abdomen/pelvis with contrast 01/15/2021. Nuclear medicine HIDA scan from 01/20/2021. FINDINGS: PANCREAS: Visualized portion shows no significant abnormality. AORTA: No significant abnormality. IVC: No significant abnormality. LIVER: The liver is normal in size measuring 12.7 cm .No focal hepatic lesion identified. Normal hepa topedal blood flow within the main portal vein. GALLBLADDER: Wall echo shadow spine, most consistent with a contracted gallbladder filled with stones . This is otherwise not well evaluated due to contraction and shadowing. BILE DUCTS: No significant abnormality. Common bile duct measures 3 mm. FREE FLUID: None. ADDITIONAL FINDINGS: Incidental finding of a right pleural effusion. IMPRESSION: 1.: Gallbladder is contracted and filled with stones, otherwise not well evaluated. Nonvisualization of the gallbladder on recent nuclear medicine HIDA scan remains concerning for cholecystitis. 2. Incidental finding of a right pleural effusion. Scribed by: Shantelle Huerta RDMS, RVT Scribed: 01/23/2021 2:34 PM I have reviewed the images, agree with this report, and edited this report as needed. Signer Name: René Murray MD Signed: 01/23/2021 4:44 PM Workstation Name: [id number]
[2021-01-23] MEDS: D5NS W/KCL 20 MEQ 20 MEQ/1,000 ML BAG IV SCH (19:09)
--- NOTE | 2021-01-23 19:17 | Event Note ---
Date: 01/23/[address] Garg. Obtained ultrasound of gallbladder. Reviewed CT and HIDA scan. Gallbladder is full of stones, but is contracted which makes drain placement complicated. Drain cannot be placed in a contracted gallbladder. I will bring the patient down tomorrow for attempted CT-guided cholecystostomy placement. If CT scan demonstrates contracted gallbladder full of stones, then patient may need transfer for laparoscopic cholecystectomy.
[2021-01-23] MEDS: ONDANSETRON 4 MG/2 ML INJ IV PRN (23:45)
[2021-01-24 06:14] LABS: Calcium 8.2 mg/dL (8.4-10.2); Hemolysis Index 2
[2021-01-24 06:16] LABS: BUN/Creatinine Ratio 3; Blood Urea Nitrogen 1 mg/dL (7-17)
[2021-01-24] MEDS: HEPARIN 5,000 UNIT/1 ML VIAL SUB-Q SCH ×3 (06:44→22:12)
[2021-01-24 07:14] LABS: Hematocrit 31.8 % (30.3-42.9); Hemoglobin 10.5 gm/dl (10.1-14.3); Mean Corpuscular HGB Conc 33 % (30-34); Mean Corpuscular Volume 99 fl (79-97); Platelet Count 189 K/mm3 (140-440); Red Blood Count 3.21 M/mm3 (3.65-5.03); Red Cell Distribution Width 15.2 % (13.2-15.2)
--- NOTE | 2021-01-24 09:13 | Progress Note ---
Assessment and Plan - Patient Problems (1) Abnormal finding on EKG Current Visit: Yes Status: Acute Plan to address problem: EKG in the emergency room showed normal sinus rhythm and QT prolongation QT interval has normalized following correction of electrolyte abnormalities. Echocardiogram shows well-preserved left ventricular systolic function, EF 50- 55%. Conservative cardiac management. (2) Pre-op evaluation Current Visit: Yes Status: Acute Plan to address problem: You may proceed with noncardiac surgery, cardiac risk is low. Subjective Date of service: 01/24/21 Interval history: No cardiac events. For planned CT-guided cholecystostomy placement. Objective Vital Signs Temp Pulse Resp BP BP Pulse Ox 01/24/21 07:39 98.3 F 115 H 18 132/93 97 01/24/21 04:28 98.4 F 107 H 18 97 01/24/21 04:27 115 H 97 01/24/21 01:05 139/90 01/24/21 01:03 98.4 F 104 H 20 100 01/23/21 23:00 18 100 01/23/21 22:00 104 H 01/23/21 20:55 98.6 F 117 H 20 95 01/23/21 20:54 109/73 01/23/21 16:51 98.6 F 109 H 17 129/90 100 01/23/21 10:42 99 - Physical Examination General: No Apparent Distress HEENT: Positive: PERRL Neck: Positive: neck supple Cardiac: Positive: Tachycardia Lungs: Positive: Decreased Breath Sounds Neuro: Positive: Grossly Intact, Weakness Abdomen: Positive: Soft Skin: Positive: Clear Extremities: Absent: edema - Labs and Meds CBC 01/24/21 Range/Units 05:11 WBC 5.8 (4.5-11.0) K/mm3 RBC 3.21 L (3.65-5.03) M/mm3 Hgb 10.5 (10.1-14.3) gm/dl Hct 31.8 (30.3-42.9) % Plt Count 189 (140-440) K/mm3 Comprehensive Metabolic Panel 01/24/21 Range/Units 05:11 Sodium 135 L (137-145) mmol/L Potassium 3.4 L (3.6-5.0) mmol/L Chloride 103.6 (98-107) mmol/L Carbon Dioxide 19 L (22-30) mmol/L BUN 1 L (7-17) mg/dL Creatinine 0.4 L (0.6-1.2) mg/dL Glucose 104 H (65-100) mg/dL Calcium 8.2 L (8.4-10.2) mg/dL
--- NOTE | 2021-01-24 10:59 | Cat Scan Report ---
CT ABDOMEN AND PELVIS WITHOUT CONTRAST HISTORY: cholecystomy tube placement. Acute cholecystitis COMPARISON: Right upper quadrant ultrasound 01/23/2021. HIDA scan 01/20/2021. CT abdomen pelvis TECHNIQUE: Helical CT images of the abdomen and pelvis were obtained without contrast. Sagittal and c oronal reformatted images were reviewed. All CT scans at this location are performed using CT dose re duction for ALARA by means of automated exposure control. FINDINGS: Abdomen/pelvis: The gallbladder appears normal size and wall thickness. The gallbladder is packed wi th gallstones. No surrounding inflammatory changes. The biliary system is unremarkable. Nonfilling of the gallbladder on recent HIDA scan is thought to be secondary to chronic cholecystitis and not an u nobstructed cystic duct/acute cholecystitis. The common bile duct and intrahepatic ducts are unremark able. Hypodense lesion measuring up to 4 cm in the right hepatic lobe is again noted. The remainder of the liver is unremarkable and the pancreas, spleen, kidneys and adrenal glands are unremarkable. There is no evidence for bowel obstruction, free fluid, free air or fluid collection. Hysterectomy changes ar e evident. The bladder is unremarkable. Lungs/bones: Moderate layering bilateral pleural effusions have developed. Aerated lung bases are cl ear. No suspicious bony lesion is detected. IMPRESSION: Chronic cholecystitis. The gallbladder is packed with multiple small and large stones. Nonfilling on recent HIDA scan is thought to be secondary to chronic cholecystitis and not an obstructed cystic luna t. There are no inflammatory changes surrounding the gallbladder. Stable left hepatic lobe masslike lesion. New moderate bilateral pleural effusions. Signer Name: Alden Vaca Jr, MD Signed: 01/24/2021 10:54 AM Workstation Name: [id number]
--- NOTE | 2021-01-24 11:00 | Event Note ---
Date: 01/24/[address] scan obtained of the abdomen and pelvis which demonstrated a contracted gallbladder full of stones. Ultrasound demonstrated contracted gallbladder full of stones. Gallbladder is not dilated and therefore percutaneous cholecystostomy tube cannot be performed. Due to chronic discomfort and nausea and vomiting, may need to consider transfer for laparoscopic cholecystectomy given underlying mediastinal compressive issues on the trachea. Discussed with Dr. Garg
--- NOTE | 2021-01-24 13:25 | Magnetic Resonance Report ---
MRI BRAIN WITHOUT AND WITH CONTRAST INDICATION / CLINICAL INFORMATION: vomiting, lung cancer. To look for metastases. TECHNIQUE: Multiplanar, multisequence MR images of the brain were obtained. 15 mm IV Clariscan injected. COMPARISON: None available. FINDINGS: BRAIN / INTRACRANIAL CONTENTS: No acute ischemia, acute hemorrhage, mass effect, midline shift, or hy drocephalus. No chronic infarct or significant atrophy. No significant demyelinating changes. No abn ormal enhancement. CRANIOCERVICAL JUNCTION: No significant abnormality. VASCULAR FLOW-VOIDS: No significant abnormality. ORBITS: No significant abnormality of visualized orbits. SINUSES / MASTOIDS: No significant abnormality of visualized sinuses and mastoid air cells. ADDITIONAL FINDINGS: None. IMPRESSION: 1. No evidence of metastatic disease in the brain. Signer Name: Aleksandr Velasquez MD Signed: 01/24/2021 1:20 PM Workstation Name: [id number]
--- NOTE | 2021-01-24 16:05 | Progress Note ---
Assessment and Plan 30-year-old female with symptomatic cholelithiasis. Afebrile and stable with persistent abdominal pain nausea and vomiting. Patient may benefit from cholecystectomy however due to mediastinal mass patient is at a very high risk of having a high risk perioperative event concerning her airway. Consulted IR for evaluation for cholecystostomy tube. At some point patient may have a cholecystectomy however recommend having at a facility with cardiothoracic resources in case patient's airway is compromised during surgery. No surgical intervention is being planned during this admission. Patient should remain on clear liquids and advance as tolerated. Patient also be sent home with antiemetics. Spoke to patient about being referred to a comprehensive facility such as cancer centers from [place] if she would like to pursue getting her gallbladder removed. This will allow for full work-up of her mediastinal mass and other pathology. Patient did not have any questions and expressed understanding. We will sign off at this time. Subjective Date of service: 01/24/21 Narrative: No acute events. Patient had gone down to interventional radiology for cholecys tostomy tube placement. However they were unable to place since patient's gallbladder is contracted and full of stones. Patient says she feels about the same with intermittent nausea and vomiting and generalized abdominal pain. Objective Vital Signs - 12hr 01/24/21 01/24/21 01/24/21 04:27 04:28 07:39 Temperature 98.4 F 98.3 F Pulse Rate 115 H 107 H 115 H Respiratory 18 18 Rate Blood Pressure 132/93 O2 Sat by Pulse 97 97 97 Oximetry 01/24/21 10:00 Temperature Pulse Rate 112 H Respiratory Rate Blood Pressure O2 Sat by Pulse Oximetry - General physical appearance well developed, no distress, no pain - Respiratory normal expansion, normal respiratory effort - Abdomen soft, other (Epigastric and right upper quadrant tenderness to deep palpation) - Labs 01/24/21 05:11 01/24/21 05:11 Diabetes panel 01/24/21 Range/Units 05:11 Sodium 135 L (137-145) mmol/L Potassium 3.4 L (3.6-5.0) mmol/L Chloride 103.6 (98-107) mmol/L Carbon Dioxide 19 L (22-30) mmol/L BUN 1 L (7-17) mg/dL Creatinine 0.4 L (0.6-1.2) mg/dL Glucose 104 H (65-100) mg/dL Calcium 8.2 L (8.4-10.2) mg/dL Calcium panel 01/24/21 Range/Units 05:11 Calcium 8.2 L (8.4-10.2) mg/dL Pituitary panel 01/24/21 Range/Units 05:11 Sodium 135 L (137-145) mmol/L Potassium 3.4 L (3.6-5.0) mmol/L Chloride 103.6 (98-107) mmol/L Carbon Dioxide 19 L (22-30) mmol/L BUN 1 L (7-17) mg/dL Creatinine 0.4 L (0.6-1.2) mg/dL Glucose 104 H (65-100) mg/dL Calcium 8.2 L (8.4-10.2) mg/dL Adrenal panel 01/24/21 Range/Units 05:11 Sodium 135 L (137-145) mmol/L Potassium 3.4 L (3.6-5.0) mmol/L Chloride 103.6 (98-107) mmol/L Carbon Dioxide 19 L (22-30) mmol/L BUN 1 L (7-17) mg/dL Creatinine 0.4 L (0.6-1.2) mg/dL Glucose 104 H (65-100) mg/dL Calcium 8.2 L (8.4-10.2) mg/dL
[2021-01-24] MEDS: MIDODRINE 5 MG TAB PO SCH ×3 (16:17→16:19)
[2021-01-24] MEDS: PANTOPRAZOLE 40 MG INJ IV SCH (16:19)
--- NOTE | 2021-01-24 21:38 | Progress Note ---
Assessment and Plan - Patient Problems (1) Lung cancer Current Visit: Yes Status: Acute Qualifiers: Laterality: right Plan to address problem: Lung cancer with metastatic disease: Supportive care, oncology team consulted. Recommend outpatient follow-up as per patient family. Discharge planning with home hospice care. (2) Cholelithiasis Current Visit: Yes Status: Acute Qualifiers: Cholelithiasis location: gallbladder Cholecystitis presence: without cholecystitis Plan to address problem: Symptomatic cholelithiasis: Supportive care, advance diet as tolerated. Fatou gical team consulted. No surgical intervention warranted at this time. Interventional radiology consulted however patient gallbladder is contracted and patient is not a candidate for cholecystostomy tube.. (3) Malnutrition Current Visit: Yes Status: Acute Qualifiers: Protein-calorie malnutrition severity: moderate Plan to address problem: Increase protein intake, dietary supplementation (4) Generalized weakness Current Visit: Yes Status: Acute Plan to address problem: Supportive care, IV fluid resuscitation therapy, (5) DVT prophylaxis Current Visit: Yes Status: Acute Plan to address problem: SCD to bilateral lower extremities while in bed, patient is ambulatory (6) Advance care planning Current Visit: Yes Status: Acute Plan to address problem: Disease education conducted, care plan discussed, diagnosis discussed, prognosis discussed. Discussed patient care options with patient as well as patient's son Dave Christensen. Recommend home hospice care. Patient and family knowledges understanding and agreement with care plan. Patient is full code. +30 minutes. History Interval history: 50 YO Female HD#10 with recurrent lung cancer with metastatic disease, symptomatic cholelithiasis not amenable to percutaneous drain placement. Patient counseled regarding treatment options. Advanced care planning conducted. Patient counseled regarding disease prognosis. Recommend home hospice care at discharge. Patient family may elect to seek further care as outpatient. Patient medically optimized. Case management consulted for assi stance with discharge planning. Hospitalist Physical - Constitutional Vitals: Temp Pulse Resp BP Pulse Ox 98.5 F 125 H 18 103/66 100 01/24/21 21:10 01/24/21 21:24 01/24/21 21:24 01/24/21 21:10 01/24/21 21:24 General appearance: Present: no acute distress - EENT Eyes: Present: PERRL ENT: hearing intact - Neck Neck: Present: supple - Respiratory Respiratory: bilateral: diminished - Cardiovascular Rhythm: regular Heart Sounds: Present: S1 & S2 - Extremities Extremities: no ischemia Peripheral Pulses: within normal limits - Abdominal General gastrointestinal: soft, tender (Hospitalist) - Integumentary Integumentary: Present: clear, dry - Psychiatric Psychiatric: appropriate mood/affect, cooperative - Neurologic Neurologic: CNII-XII intact HEART Score - HEART Score Troponin: Troponin T < 0.010 ng/mL (0.00-0.029) 01/15/21 11:41 Results - Labs CBC & Chem 7: 01/24/21 05:11 01/24/21 05:11 Labs: Laboratory Last Values WBC 5.8 K/mm3 (4.5-11.0) 01/24/21 05:11 RBC 3.21 M/mm3 (3.65-5.03) L 01/24/21 05:11 Hgb 10.5 gm/dl (10.1-14.3) 01/24/21 05:11 Hct 31.8 % (30.3-42.9) 01/24/21 05:11 MCV 99 fl (79-97) H 01/24/21 05:11 MCH 33 pg (28-32) H 01/24/21 05:11 MCHC 33 % (30-34) 01/24/21 05:11 RDW 15.2 % (13.2-15.2) 01/24/21 05:11 Plt Count 189 K/mm3 (140-440) 01/24/21 05:11 Lymph % (Auto) 27.3 % (13.4-35.0) 01/15/21 02:32 [place] % (Auto) 7.1 % (0.0-7.3) 01/15/21 02:32 Eos % (Auto) 0.2 % (0.0-4.3) 01/15/21 02:32 Baso % (Auto) 0.5 % (0.0-1.8) 01/15/21 02:32 Lymph # (Auto) 1.4 K/mm3 (1.2-5.4) 01/15/21 02:32 [place] # (Auto) 0.4 K/mm3 (0.0-0.8) 01/15/21 02:32 Eos # (Auto) 0.0 K/mm3 (0.0-0.4) 01/15/21 02:32 Baso # (Auto) 0.0 K/mm3 (0.0-0.1) 01/15/21 02:32 Add Manual Diff Complete 01/16/21 02:12 Total Counted 100 01/16/21 02:12 Seg Neutrophils % 64.9 % (40.0-70.0) 01/15/21 02:32 Seg Neuts % (Manual) 77.0 % (40.0-70.0) H 01/16/21 02:12 Band Neutrophils % 1.0 % 01/16/21 02:12 Lymphocytes % (Manual) 15.0 % (13.4-35.0) 01/16/21 02:12 Monocytes % (Manual) 6.0 % (0.0-7.3) 01/16/21 02:12 Basophils % (Manual) 1.0 % (0.0-1.8) 01/16/21 02:12 Nucleated RBC % Not Reportable 01/16/21 02:12 Seg Neutrophils # 3.3 K/mm3 (1.8-7.7) 01/15/21 02:32 Seg Neutrophils # Man 3.5 K/mm3 (1.8-7.7) 01/16/21 02:12 Band Neutrophils # 0.0 K/mm3 01/16/21 02:12 Lymphocytes # (Manual) 0.7 K/mm3 (1.2-5.4) L 01/16/21 02:12 Abs React Lymphs (Man) 0.0 K/mm3 01/16/21 02:12 Monocytes # (Manual) 0.3 K/mm3 (0.0-0.8) 01/16/21 02:12 Eosinophils # (Manual) 0.0 K/mm3 (0.0-0.4) 01/16/21 02:12 Basophils # (Manual) 0.0 K/mm3 (0.0-0.1) 01/16/21 02:12 Metamyelocytes # 0.0 K/mm3 01/16/21 02:12 Myelocytes # 0.0 K/mm3 01/16/21 02:12 Promyelocytes # 0.0 K/mm3 01/16/21 02:12 Blast Cells # 0.0 K/mm3 01/16/21 02:12 WBC Morphology Not Reportable 01/16/21 02:12 Hypersegmented Neuts Not Reportable 01/16/21 02:12 Hyposegmented Neuts Not Reportable 01/16/21 02:12 Hypogranular Neuts Not Reportable 01/16/21 02:12 Smudge Cells Not Reportable 01/16/21 02:12 Toxic Granulation Not Reportable 01/16/21 02:12 Toxic Vacuolation Not Reportable 01/16/21 02:12 Dohle Bodies Not Reportable 01/16/21 02:12 Pelger-Huet Anomaly Not Reportable 01/16/21 02:12 Alonzo Rods Not Reportable 01/16/21 02:12 Platelet Estimate Consistent w auto 01/16/21 02:12 Clumped Platelets Not Reportable 01/16/21 02:12 Plt Clumps, EDTA Not Reportable 01/16/21 02:12 Large Platelets Not Reportable 01/16/21 02:12 Giant Platelets Not Reportable 01/16/21 02:12 Platelet Satelliting Not Reportable 01/16/21 02:12 Plt Morphology Comment Not Reportable 01/16/21 02:12 RBC Morphology Not Reportable 01/16/21 02:12 Dimorphic RBCs Not Reportable 01/16/21 02:12 Polychromasia Not Reportable 01/16/21 02:12 Hypochromasia Not Reportable 01/16/21 02:12 Poikilocytosis Not Reportable 01/16/21 02:12 Anisocytosis 1+ 01/16/21 02:12 Microcytosis Not Reportable 01/16/21 02:12 Macrocytosis Not Reportable 01/16/21 02:12 Spherocytes Not Reportable 01/16/21 02:12 Pappenheimer Bodies Not Reportable 01/16/21 02:12 Sickle Cells Not Reportable 01/16/21 02:12 Target Cells Not Reportable 01/16/21 02:12 Tear Drop Cells Not Reportable 01/16/21 02:12 Ovalocytes Not Reportable 01/16/21 02:12 Helmet Cells Not Reportable 01/16/21 02:12 [place] Bodies Not Reportable 01/16/21 02:12 [place] Rings Not Reportable 01/16/21 02:12 [place] Cells Not Reportable 01/16/21 02:12 Bite Cells Not Reportable 01/16/21 02:12 Crenated Cell Not Reportable 01/16/21 02:12 Elliptocytes Not Reportable 01/16/21 02:12 Acanthocytes (Spur) Not Reportable 01/16/21 02:12 Rouleaux Not Reportable 01/16/21 02:12 Hemoglobin C Crystals Not Reportable 01/16/21 02:12 Schistocytes Not Reportable 01/16/21 02:12 Malaria parasites Not Reportable 01/16/21 02:12 Calvin Bodies Not Reportable 01/16/21 02:12 Hem Pathologist Commnt No 01/16/21 02:12 PT 16.5 Sec. (12.2-14.9) H 01/16/21 02:12 INR 1.27 (0.87-1.13) H 01/16/21 02:12 APTT 26.4 Sec. (24.2-36.6) 01/15/21 02:32 D-Dimer 1101.34 ng/mlDDU (0-234) H 01/15/21 04:51 Sodium 135 mmol/L (137-145) L 01/24/21 05:11 Potassium 3.4 mmol/L (3.6-5.0) L 01/24/21 05:11 Chloride 103.6 mmol/L (98-107) 01/24/21 05:11 Carbon Dioxide 19 mmol/L (22-30) L 01/24/21 05:11 Anion Gap 16 mmol/L 01/24/21 05:11 BUN 1 mg/dL (7-17) L 01/24/21 05:11 Creatinine 0.4 mg/dL (0.6-1.2) L 01/24/21 05:11 Estimated GFR > 60 ml/min 01/24/21 05:11 BUN/Creatinine Ratio 3 % 01/24/21 05:11 Glucose 104 mg/dL (65-100) H 01/24/21 05:11 POC Glucose 81 mg/dL (70-105) 01/23/21 21:35 Lactic Acid 1.80 mmol/L (0.7-2.0) 01/15/21 02:32 Calcium 8.2 mg/dL (8.4-10.2) L 01/24/21 05:11 Phosphorus 2.70 mg/dL (2.5-4.5) 01/21/21 05:43 Magnesium 2.10 mg/dL (1.7-2.3) 01/22/21 05:44 Iron 61 ug/dL (37-170) 01/22/21 05:44 TIBC 130 mcg/dL (250-450) L 01/22/21 05:44 Ferritin 630.5 ng/mL (10.0-200.0) H 01/15/21 04:51 Total Bilirubin 1.50 mg/dL (0.1-1.2) H 01/17/21 15:12 Direct Bilirubin 0.6 mg/dL (0-0.2) H 01/15/21 02:32 Indirect Bilirubin 1.3 mg/dL 01/15/21 02:32 AST 26 units/L (5-40) 01/17/21 15:12 ALT 32 units/L (7-56) 01/17/21 15:12 Alkaline Phosphatase 72 units/L (35-129) 01/17/21 15:12 Lactate Dehydrogenase 209 units/L (91-180) H 01/22/21 05:44 Troponin T < 0.010 ng/mL (0.00-0.029) 01/15/21 11:41 C-Reactive Protein 0.30 mg/dL (0.00-1.30) 01/15/21 04:51 Total Protein 6.2 g/dL (6.3-8.2) L 01/17/21 15:12 Albumin 3.5 g/dL (3.9-5) L 01/17/21 15:12 Albumin/Globulin Ratio 1.3 % 01/17/21 15:12 Lipase 66 units/L (13-60) H 01/15/21 02:32 Procalcitonin 11.57 ng/mL (<0.15) 01/15/21 04:51 Coronavirus (PCR) Negative (Negative) 01/15/21 08:15 Ramirez/IV: Voiding Method Bedside Commode Active Medications - Current Medications Current Medications: Generic Name Dose Route Start Last Admin Trade Name Freq PRN Reason Stop Dose Admin Acetaminophen 650 mg 01/15/21 06:24 Acetaminophen 325 Mg Tab PO Q6H PRN Pain MILD(1-3)/Fever >100.5/ALMEIDA Benzocaine/Menthol 1 each 01/17/21 14:30 01/17/21 16:19 Benzocaine/Menthol Lozenge MM 1 each Q2HR PRN Administration Sore Throat Heparin Sodium (Porcine) 5,000 unit 01/15/21 14:00 01/24/21 16:19 Heparin 5,000 Unit/1 Ml Vial SUB-Q 5,000 unit Q8HR AHSAN Administration Potassium Chloride/Dextrose/Sod Cl 20 meq in 1,000 mls @ 75 mls/hr 01/21/21 08:00 01/23/21 19:09 D5w/Ns W/Kcl 20meq IV 75 mls/hr DIRECT AHSAN Administration Magnesium Hydroxide 30 ml 01/15/21 06:24 Magnesium Hydroxide (Mom) Oral Liqd Udc PO Q4H PRN Constipation Midodrine 10 mg 01/21/21 08:00 01/24/21 16:19 Midodrine 5 Mg Tab PO 10 mg TID@0800,1200,1600 AHSAN Administration Morphine Sulfate 2 mg 01/15/21 06:24 Morphine 2 Mg/1 Ml Inj IV Q4H PRN Pain, Moderate (4-6) Morphine Sulfate 4 mg 01/15/21 06:24 Morphine 4 Mg/1 Ml Inj IV Q4H PRN Pain , Severe (7-10) Ondansetron HCl 4 mg 01/15/21 06:24 01/23/21 23:45 Ondansetron 4 Mg/2 Ml Inj IV 4 mg Q8H PRN Administration Nausea And Vomiting Pantoprazole Sodium 40 mg 01/21/21 16:00 01/24/21 16:19 Pantoprazole 40 Mg Inj IV 40 mg QDAY AHSAN Administration Sodium Chloride 10 ml 01/15/21 10:00 01/24/21 16:20 Sodium Chloride 0.9% 10 Ml Flush Syringe IV 10 ml BID AHSAN Administration Sodium Chloride 10 ml 01/15/21 06:24 Sodium Chloride 0.9% 10 Ml Flush Syringe IV PRN PRN LINE FLUSH Nutrition/Malnutrition Assess - Dietary Evaluation Nutrition/Malnutrition Findings: Nutrition Notes Start: 01/15/21 09:31 Freq: Status: Active Protocol: Document 01/23/21 13:49 MK (Rec: 01/23/21 13:57 MK [id number]) Nutrition Notes Initial or Follow up Reassessment Other Pertinent Diagnosis hx cervical and lung cancer, mass in lung, generalized weakness Current Diet NPO Labs/Tests K 3.4 Pertinent Medications reviewed Height 5 ft 8 in Weight 62.8 kg [place] Body Weight (kg) 63.63 BMI 21.0 Weight Status Appropriate Subjective/Other Information Pt reports eating 10% of meals . She vomited yesterday. Pt likely needs TPN/PPN if N/V continues. Pt to have cholecystectomy today. Percent of energy/protein needs met: negligible Current % PO Negligible Minimum of two criteria Yes Energy Intake (severe) < or equal to 50% Estimated Energy Requirement > or equal to 5 days Interpretation of Weight Loss (severe) >7.5% in 3 months #2 Nutrition Diagnosis Malnutrition Diagnosis Progress(for reassessment Continues documentation) #1 Nutrition Diagnosis Inadequate energy intake As Evidenced by Signs and Symptoms pt eating 10% of meals Diagnosis Progress(for reassessment Improved documentation) Is patient on ventilator? No Is Patient Ambulatory and/or Out of Bed No [facility] 1548.036 Calculation Used for Recommendations [facility] Additional Notes Protein: (1.2-1.5g/kg) 76-95g Fluid: 1ml/kcal or per Nutrition Intervention Change Diet Order: advance as able Nutrition Support: Recommend TPN/PPN if N/V continues Goal #1 Diet advancement Follow-Up By: 01/25/21 Additional Comments FU for intakes, ONS tolerance and POC
[2021-01-24] MEDS: D5NS W/KCL 20 MEQ 20 MEQ/1,000 ML BAG IV SCH (22:12)
--- NOTE | 2021-01-24 23:35 | Hem/Onc Progress Note ---
Subjective Interval history: onc f/u televisit via [facility] CPT 45126 dx: lung cancer ----- 50yo active AA woman with h/o locally advanced lung cancer , s/p chemotherapy/rad, in remission for two years has been followed by Dr. Yvonne Briseno in [facility]-->now pt has no health plan eval for weakness, vomiting for several weeks-->found to have evidence of "symptomtic cholelithiasis" has had coughing but not SOB Chest CT showed RUL lass and mediastinal mass, encasing the R main bronchus and R pulm artery GB surgery felt to be too risky because of airway concern, GB tube felt to be not helpful she's still nauseated, but she seems better to me than last week, less tearful brain MRI neg for mets DATA REVIEWED BELOW IMP: relapsed or new primary lung cancer locally advanced lung cancer could be part of the reason she feels bad symptomatic cholelithiasis, not planning intervention (I'm not convinced this is the reason for nausea) good functional status, good candidate for antitumor therapy she will need lung tumor biopsy and antitumor therapy eventually she has no oncologist and no health plan REC: consider a trial of steroids for nausea (e.g. decadron) outpatient onc f/u would be possible, but she has no health plan consider inpatient transfer to a regional cancer center for interventions if she gets stuck at [facility] longer-->then do lung tumor biopsy Vital Signs Temp Pulse Resp BP Pulse Ox 98.5 F 125 H 18 103/66 100 01/24/21 21:10 01/24/21 21:24 01/24/21 21:24 01/24/21 21:10 01/24/21 21:24 Temperature -Last 24 Hours Temperature 98.5 F Temperature 98.0 F Temperature 98.3 F Temperature 98.4 F Temperature 98.4 F Active Medications Aeparin Sodium (Porcine) (Heparin 5,000 Unit/1 Ml Vial) 5,000 unit SUB-Q Q8HR AHSAN Last Admin: 01/24/21 22:12 Dose: 5,000 unit Documented by: Midodrine (Midodrine 5 Mg Tab) 10 mg PO TID@0800,1200,1600 AHSAN Last Admin: 01/24/21 16:19 Dose: 10 mg Documented by: Morphine Sulfate (Morphine 2 Mg/1 Ml Inj) 2 mg IV Q4H PRN PRN Reason: Pain, Moderate (4-6) Morphine Sulfate (Morphine 4 Mg/1 Ml Inj) 4 mg IV Q4H PRN PRN Reason: Pain , Severe (7-10) Ondansetron HCl (Ondansetron 4 Mg/2 Ml Inj) 4 mg IV Q8H PRN PRN Reason: Nausea And Vomiting Last Admin: 01/23/21 23:45 Dose: 4 mg Documented by: Pantoprazole Sodium (Pantoprazole 40 Mg Inj) 40 mg IV QDAY AHSAN Last Admin: 01/24/21 16:19 Dose: 40 mg Documented by: Laboratory Last Values WBC 5.8 K/mm3 (4.5-11.0) 01/24/21 05:11 Hgb 10.5 gm/dl (10.1-14.3) 01/24/21 05:11 Hct 31.8 % (30.3-42.9) 01/24/21 05:11 Plt Count 189 K/mm3 (140-440) 01/24/21 05:11 Sodium 135 mmol/L (137-145) L 01/24/21 05:11 Potassium 3.4 mmol/L (3.6-5.0) L 01/24/21 05:11 Creatinine 0.4 mg/dL (0.6-1.2) L 01/24/21 05:11 Calcium 8.2 mg/dL (8.4-10.2) L 01/24/21 05:11 Phosphorus 2.70 mg/dL (2.5-4.5) 01/21/21 05:43 Magnesium 2.10 mg/dL (1.7-2.3) 01/22/21 05:44 Iron 61 ug/dL (37-170) 01/22/21 05:44 TIBC 130 mcg/dL (250-450) L 01/22/21 05:44 Lipase 66 units/L (13-60) H 01/15/21 02:32 Procalcitonin 11.57 ng/mL (<0.15) 01/15/21 04:51 Coronavirus (PCR) Negative (Negative) 01/15/21 08:15 Objective - Constitutional Vitals: Last Vital Signs Temp 98.5 F 01/24/21 21:10 Pulse 125 H 01/24/21 21:24 Resp 18 01/24/21 21:24 BP 103/66 01/24/21 21:10 Pulse Ox 100 01/24/21 21:24 - Labs Lab Results: Laboratory Results - last 24 hr 01/24/21 01/24/21 05:11 05:11 WBC 5.8 RBC 3.21 L Hgb 10.5 Hct 31.8 MCV 99 H MCH 33 H MCHC 33 RDW 15.2 Plt Count 189 Sodium 135 L Potassium 3.4 L Chloride 103.6 Carbon Dioxide 19 L Anion Gap 16 BUN 1 L Creatinine 0.4 L Estimated GFR > 60 BUN/Creatinine Ratio 3 Glucose 104 H Calcium 8.2 L Medications & Allergies - Medications Allergies/Adverse Reactions: Allergies No Known Allergies Allergy (Verified 07/27/20 13:43) Home Medications: Home Medications Medication Instructions Recorded Confirmed Last Taken Type Ketorolac [Toradol] 10 mg PO Q6H PRN #20 tablet 07/27/20 01/15/21 Unknown Rx methOCARBAMOL [Robaxin TAB] 750 mg PO Q8H PRN #30 tablet 07/27/20 01/15/21 Unknown Rx Active Medications: Generic Name Dose Route Start Last Admin Trade Name Freq PRN Reason Stop Dose Admin Acetaminophen 650 mg 01/15/21 06:24 Acetaminophen 325 Mg Tab PO Q6H PRN Pain MILD(1-3)/Fever >100.5/ALMEIDA Benzocaine/Menthol 1 each 01/17/21 14:30 01/17/21 16:19 Benzocaine/Menthol Lozenge MM 1 each Q2HR PRN Administration Sore Throat Heparin Sodium (Porcine) 5,000 unit 01/15/21 14:00 01/24/21 22:12 Heparin 5,000 Unit/1 Ml Vial SUB-Q 5,000 unit Q8HR AHSAN Administration Potassium Chloride/Dextrose/Sod Cl 20 meq in 1,000 mls @ 75 mls/hr 01/21/21 08:00 01/24/21 22:12 D5w/Ns W/Kcl 20meq IV 75 mls/hr DIRECT AHSAN Administration Magnesium Hydroxide 30 ml 01/15/21 06:24 Magnesium Hydroxide (Mom) Oral Liqd Udc PO Q4H PRN Constipation Midodrine 10 mg 01/21/21 08:00 01/24/21 16:19 Midodrine 5 Mg Tab PO 10 mg TID@0800,1200,1600 AHSAN Administration Morphine Sulfate 2 mg 01/15/21 06:24 Morphine 2 Mg/1 Ml Inj IV Q4H PRN Pain, Moderate (4-6) Morphine Sulfate 4 mg 01/15/21 06:24 Morphine 4 Mg/1 Ml Inj IV Q4H PRN Pain , Severe (7-10) Ondansetron HCl 4 mg 01/15/21 06:24 01/23/21 23:45 Ondansetron 4 Mg/2 Ml Inj IV 4 mg Q8H PRN Administration Nausea And Vomiting Pantoprazole Sodium 40 mg 01/21/21 16:00 01/24/21 16:19 Pantoprazole 40 Mg Inj IV 40 mg QDAY AHSAN Administration Sodium Chloride 10 ml 01/15/21 10:00 01/24/21 22:15 Sodium Chloride 0.9% 10 Ml Flush Syringe IV 10 ml BID AHSAN Administration Sodium Chloride 10 ml 01/15/21 06:24 Sodium Chloride 0.9% 10 Ml Flush Syringe IV PRN PRN LINE FLUSH
[2021-01-25] MEDS: dexAMETHasone 4 MG/ML VIAL IV SCH ×3 (01:32→21:22)
[2021-01-25] MEDS: HEPARIN 5,000 UNIT/1 ML VIAL SUB-Q SCH ×4 (06:08→21:40)
[2021-01-25] MEDS: MIDODRINE 5 MG TAB PO SCH ×3 (09:11→17:24)
[2021-01-25] MEDS: PANTOPRAZOLE 40 MG INJ IV SCH (09:12)
--- NOTE | 2021-01-25 10:38 | Hem/Onc Progress Note ---
Subjective Interval history: Interval history: onc f/u televisit via [facility] CPT 84061 dx: lung cancer ----- 50yo active AA woman with h/o locally advanced lung cancer , s/p chemotherapy/rad, in remission for two years has been followed by Dr. Yvonne Briseno in [facility]-->now pt has no health plan eval for weakness, vomiting for several weeks-->found to have evidence of "symptomtic cholelithiasis" has had coughing but not SOB Chest CT showed RUL lass and mediastinal mass, encasing the R main bronchus and R pulm artery GB surgery felt to be too risky because of airway concern, GB tube felt to be not helpful she's still nauseated, but she seems better to me than last week, less tearful brain MRI neg for mets DATA REVIEWED BELOW IMP: relapsed or new primary lung cancer hospitalized for nausea good enough functional status for treatment- she needs chemo/immunotherapy she has no health plan now-->this is the top problem REC: trial of steroids for nausea try to get her out of [facility]-->outpt onc appointment somewhere home hospice may be a way to get her out of hospital, but she needs chemo d/w son Dave d/w Dr. Hull social services director to try for medicaid Laboratory Last Values WBC 5.8 K/mm3 (4.5-11.0) 01/24/21 05:11 Hgb 10.5 gm/dl (10.1-14.3) 01/24/21 05:11 Hct 31.8 % (30.3-42.9) 01/24/21 05:11 Plt Count 189 K/mm3 (140-440) 01/24/21 05:11 Procalcitonin 11.57 ng/mL (<0.15) 01/15/21 04:51 Coronavirus (PCR) Negative (Negative) 01/15/21 08:15 Objective - Constitutional Vitals: Last Vital Signs Temp 98.3 F 01/25/21 05:03 Pulse 117 H 01/25/21 05:05 Resp 16 01/25/21 05:03 BP 127/78 01/25/21 05:03 Pulse Ox 100 01/25/21 05:03 Medications & Allergies - Medications Allergies/Adverse Reactions: Allergies No Known Allergies Allergy (Verified 07/27/20 13:43) Home Medications: Home Medications Medication Instructions Recorded Confirmed Last Taken Type Ketorolac [Toradol] 10 mg PO Q6H PRN #20 tablet 07/27/20 01/15/21 Unknown Rx methOCARBAMOL [Robaxin TAB] 750 mg PO Q8H PRN #30 tablet 07/27/20 01/15/21 Unknown Rx Active Medications: Generic Name Dose Route Start Last Admin Trade Name Freq PRN Reason Stop Dose Admin Acetaminophen 650 mg 01/15/21 06:24 Acetaminophen 325 Mg Tab PO Q6H PRN Pain MILD(1-3)/Fever >100.5/ALMEIDA Benzocaine/Menthol 1 each 01/17/21 14:30 01/17/21 16:19 Benzocaine/Menthol Lozenge MM 1 each Q2HR PRN Administration Sore Throat Dexamethasone 4 mg 01/24/21 23:45 01/25/21 09:12 Dexamethasone 4 Mg/Ml Vial IV 4 mg Q12HR AHSAN Administration Heparin Sodium (Porcine) 5,000 unit 01/15/21 14:00 01/25/21 06:08 Heparin 5,000 Unit/1 Ml Vial SUB-Q 5,000 unit Q8HR AHSAN Administration Potassium Chloride/Dextrose/Sod Cl 20 meq in 1,000 mls @ 75 mls/hr 01/21/21 08:00 01/24/21 22:12 D5w/Ns W/Kcl 20meq IV 75 mls/hr DIRECT AHSAN Administration Magnesium Hydroxide 30 ml 01/15/21 06:24 Magnesium Hydroxide (Mom) Oral Liqd Udc PO Q4H PRN Constipation Midodrine 10 mg 01/21/21 08:00 01/25/21 09:11 Midodrine 5 Mg Tab PO 10 mg TID@0800,1200,1600 AHSAN Administration Morphine Sulfate 2 mg 01/15/21 06:24 Morphine 2 Mg/1 Ml Inj IV Q4H PRN Pain, Moderate (4-6) Morphine Sulfate 4 mg 01/15/21 06:24 Morphine 4 Mg/1 Ml Inj IV Q4H PRN Pain , Severe (7-10) Ondansetron HCl 4 mg 01/15/21 06:24 01/23/21 23:45 Ondansetron 4 Mg/2 Ml Inj IV 4 mg Q8H PRN Administration Nausea And Vomiting Pantoprazole Sodium 40 mg 01/21/21 16:00 01/25/21 09:12 Pantoprazole 40 Mg Inj IV 40 mg QDAY AHSAN Administration Sodium Chloride 10 ml 01/15/21 10:00 01/25/21 09:12 Sodium Chloride 0.9% 10 Ml Flush Syringe IV 10 ml BID AHSAN Administration Sodium Chloride 10 ml 01/15/21 06:24 Sodium Chloride 0.9% 10 Ml Flush Syringe IV PRN PRN LINE FLUSH
--- NOTE | 2021-01-25 11:12 | Progress Note ---
Assessment and Plan - Patient Problems (1) Abnormal finding on EKG Current Visit: Yes Status: Acute Plan to address problem: EKG in the emergency room showed normal sinus rhythm and QT prolongation QT interval has normalized following correction of electrolyte abnormalities. Echocardiogram shows well-preserved left ventricular systolic function, EF 50- 55%. Conservative cardiac management. Subjective Date of service: 01/25/21 Interval history: No surgical intervention planned. No cardiac events. Objective Vital Signs Temp Pulse Pulse Resp BP Pulse Ox 01/25/21 09:00 18 100 01/25/21 05:05 117 H 01/25/21 05:03 98.3 F 123 H 16 127/78 100 01/24/21 22:00 125 H 01/24/21 21:24 125 H 18 100 01/24/21 21:10 98.5 F 126 H 18 103/66 100 01/24/21 15:59 98.0 F 18 139/84 01/24/21 13:00 97 - Physical Examination General: No Apparent Distress HEENT: Positive: PERRL Neck: Positive: neck supple Cardiac: Positive: Reg Rate and Rhythm Lungs: Positive: Decreased Breath Sounds Neuro: Positive: Grossly Intact, Weakness Abdomen: Positive: Soft Skin: Positive: Clear Extremities: Absent: edema
[2021-01-25] MEDS: D5NS W/KCL 20 MEQ 20 MEQ/1,000 ML BAG IV SCH (13:12)
--- NOTE | 2021-01-25 18:18 | Progress Note ---
Assessment and Plan - Patient Problems (1) Lung cancer Current Visit: Yes Status: Acute Qualifiers: Laterality: right Plan to address problem: Lung cancer with metastatic disease: Supportive care, oncology team consulted. Recommend outpatient follow-up as per patient family. Discharge planning with home hospice care. (2) Cholelithiasis Current Visit: Yes Status: Acute Qualifiers: Cholelithiasis location: gallbladder Cholecystitis presence: without cholecystitis Plan to address problem: Symptomatic cholelithiasis: Supportive care, advance diet as tolerated. Fatou gical team consulted. No surgical intervention warranted at this time. Interventional radiology consulted however patient gallbladder is contracted and patient is not a candidate for cholecystostomy tube.. (3) Malnutrition Current Visit: Yes Status: Acute Qualifiers: Protein-calorie malnutrition severity: moderate Plan to address problem: Increase protein intake, dietary supplementation (4) Generalized weakness Current Visit: Yes Status: Acute Plan to address problem: Supportive care, IV fluid resuscitation therapy, (5) DVT prophylaxis Current Visit: Yes Status: Acute Plan to address problem: SCD to bilateral lower extremities while in bed, patient is ambulatory (6) Advance care planning Current Visit: Yes Status: Acute Plan to address problem: Disease education conducted, care plan discussed, diagnosis discussed, prognosis discussed. Discussed patient care options with patient as well as patient's son Dave Christensen. Recommend home hospice care. Patient and family acknowledges understanding and agreement with care plan. Patient is full code. +30 minutes. History Interval history: 50 YO Female HD#11 with recurrent lung cancer with metastatic disease, symptomatic cholelithiasis not amenable to percutaneous drain placement. Patient counseled regarding treatment options. Advanced care planning conducted. Patient counseled regarding disease prognosis. Recommend home hospice care at discharge. Patient family may elect to seek further care as outpatient. Patient medically optimized. Case management consulted for as sistance with discharge planning. Discharge planning in a.m. with home hospice care. Hospice care team notified. Hospitalist Physical - Constitutional Vitals: Temp Pulse Resp BP Pulse Ox 98.0 F 107 H 18 145/85 100 01/25/21 15:26 01/25/21 15:26 01/25/21 15:26 01/25/21 15:26 01/25/21 15:26 General appearance: Present: no acute distress - EENT Eyes: Present: PERRL, EOM intact ENT: hearing intact - Neck Neck: Present: supple - Respiratory Respiratory: bilateral: diminished - Cardiovascular Rhythm: regular Heart Sounds: Present: S1 & S2 - Extremities Extremities: no ischemia Peripheral Pulses: within normal limits - Abdominal General gastrointestinal: soft, tender, non-distended Localized gastrointestinal: tender: RUQ - Integumentary Integumentary: Present: clear, dry - Psychiatric Psychiatric: appropriate mood/affect, cooperative - Neurologic Neurologic: CNII-XII intact HEART Score - HEART Score Troponin: Troponin T < 0.010 ng/mL (0.00-0.029) 01/15/21 11:41 Results - Labs CBC & Chem 7: 01/24/21 05:11 01/24/21 05:11 Labs: Laboratory Last Values WBC 5.8 K/mm3 (4.5-11.0) 01/24/21 05:11 RBC 3.21 M/mm3 (3.65-5.03) L 01/24/21 05:11 Hgb 10.5 gm/dl (10.1-14.3) 01/24/21 05:11 Hct 31.8 % (30.3-42.9) 01/24/21 05:11 MCV 99 fl (79-97) H 01/24/21 05:11 MCH 33 pg (28-32) H 01/24/21 05:11 MCHC 33 % (30-34) 01/24/21 05:11 RDW 15.2 % (13.2-15.2) 01/24/21 05:11 Plt Count 189 K/mm3 (140-440) 01/24/21 05:11 Lymph % (Auto) 27.3 % (13.4-35.0) 01/15/21 02:32 [place] % (Auto) 7.1 % (0.0-7.3) 01/15/21 02:32 Eos % (Auto) 0.2 % (0.0-4.3) 01/15/21 02:32 Baso % (Auto) 0.5 % (0.0-1.8) 01/15/21 02:32 Lymph # (Auto) 1.4 K/mm3 (1.2-5.4) 01/15/21 02:32 [place] # (Auto) 0.4 K/mm3 (0.0-0.8) 01/15/21 02:32 Eos # (Auto) 0.0 K/mm3 (0.0-0.4) 01/15/21 02:32 Baso # (Auto) 0.0 K/mm3 (0.0-0.1) 01/15/21 02:32 Add Manual Diff Complete 01/16/21 02:12 Total Counted 100 01/16/21 02:12 Seg Neutrophils % 64.9 % (40.0-70.0) 01/15/21 02:32 Seg Neuts % (Manual) 77.0 % (40.0-70.0) H 01/16/21 02:12 Band Neutrophils % 1.0 % 01/16/21 02:12 Lymphocytes % (Manual) 15.0 % (13.4-35.0) 01/16/21 02:12 Monocytes % (Manual) 6.0 % (0.0-7.3) 01/16/21 02:12 Basophils % (Manual) 1.0 % (0.0-1.8) 01/16/21 02:12 Nucleated RBC % Not Reportable 01/16/21 02:12 Seg Neutrophils # 3.3 K/mm3 (1.8-7.7) 01/15/21 02:32 Seg Neutrophils # Man 3.5 K/mm3 (1.8-7.7) 01/16/21 02:12 Band Neutrophils # 0.0 K/mm3 01/16/21 02:12 Lymphocytes # (Manual) 0.7 K/mm3 (1.2-5.4) L 01/16/21 02:12 Abs React Lymphs (Man) 0.0 K/mm3 01/16/21 02:12 Monocytes # (Manual) 0.3 K/mm3 (0.0-0.8) 01/16/21 02:12 Eosinophils # (Manual) 0.0 K/mm3 (0.0-0.4) 01/16/21 02:12 Basophils # (Manual) 0.0 K/mm3 (0.0-0.1) 01/16/21 02:12 Metamyelocytes # 0.0 K/mm3 01/16/21 02:12 Myelocytes # 0.0 K/mm3 01/16/21 02:12 Promyelocytes # 0.0 K/mm3 01/16/21 02:12 Blast Cells # 0.0 K/mm3 01/16/21 02:12 WBC Morphology Not Reportable 01/16/21 02:12 Hypersegmented Neuts Not Reportable 01/16/21 02:12 Hyposegmented Neuts Not Reportable 01/16/21 02:12 Hypogranular Neuts Not Reportable 01/16/21 02:12 Smudge Cells Not Reportable 01/16/21 02:12 Toxic Granulation Not Reportable 01/16/21 02:12 Toxic Vacuolation Not Reportable 01/16/21 02:12 Dohle Bodies Not Reportable 01/16/21 02:12 Pelger-Huet Anomaly Not Reportable 01/16/21 02:12 Alonzo Rods Not Reportable 01/16/21 02:12 Platelet Estimate Consistent w auto 01/16/21 02:12 Clumped Platelets Not Reportable 01/16/21 02:12 Plt Clumps, EDTA Not Reportable 01/16/21 02:12 Large Platelets Not Reportable 01/16/21 02:12 Giant Platelets Not Reportable 01/16/21 02:12 Platelet Satelliting Not Reportable 01/16/21 02:12 Plt Morphology Comment Not Reportable 01/16/21 02:12 RBC Morphology Not Reportable 01/16/21 02:12 Dimorphic RBCs Not Reportable 01/16/21 02:12 Polychromasia Not Reportable 01/16/21 02:12 Hypochromasia Not Reportable 01/16/21 02:12 Poikilocytosis Not Reportable 01/16/21 02:12 Anisocytosis 1+ 01/16/21 02:12 Microcytosis Not Reportable 01/16/21 02:12 Macrocytosis Not Reportable 01/16/21 02:12 Spherocytes Not Reportable 01/16/21 02:12 Pappenheimer Bodies Not Reportable 01/16/21 02:12 Sickle Cells Not Reportable 01/16/21 02:12 Target Cells Not Reportable 01/16/21 02:12 Tear Drop Cells Not Reportable 01/16/21 02:12 Ovalocytes Not Reportable 01/16/21 02:12 Helmet Cells Not Reportable 01/16/21 02:12 [place] Bodies Not Reportable 01/16/21 02:12 [place] Rings Not Reportable 01/16/21 02:12 [place] Cells Not Reportable 01/16/21 02:12 Bite Cells Not Reportable 01/16/21 02:12 Crenated Cell Not Reportable 01/16/21 02:12 Elliptocytes Not Reportable 01/16/21 02:12 Acanthocytes (Spur) Not Reportable 01/16/21 02:12 Rouleaux Not Reportable 01/16/21 02:12 Hemoglobin C Crystals Not Reportable 01/16/21 02:12 Schistocytes Not Reportable 01/16/21 02:12 Malaria parasites Not Reportable 01/16/21 02:12 Calvin Bodies Not Reportable 01/16/21 02:12 Hem Pathologist Commnt No 01/16/21 02:12 PT 16.5 Sec. (12.2-14.9) H 01/16/21 02:12 INR 1.27 (0.87-1.13) H 01/16/21 02:12 APTT 26.4 Sec. (24.2-36.6) 01/15/21 02:32 D-Dimer 1101.34 ng/mlDDU (0-234) H 01/15/21 04:51 Sodium 135 mmol/L (137-145) L 01/24/21 05:11 Potassium 3.4 mmol/L (3.6-5.0) L 01/24/21 05:11 Chloride 103.6 mmol/L (98-107) 01/24/21 05:11 Carbon Dioxide 19 mmol/L (22-30) L 01/24/21 05:11 Anion Gap 16 mmol/L 01/24/21 05:11 BUN 1 mg/dL (7-17) L 01/24/21 05:11 Creatinine 0.4 mg/dL (0.6-1.2) L 01/24/21 05:11 Estimated GFR > 60 ml/min 01/24/21 05:11 BUN/Creatinine Ratio 3 % 01/24/21 05:11 Glucose 104 mg/dL (65-100) H 01/24/21 05:11 POC Glucose 113 mg/dL (70-105) H 01/25/21 15:32 Lactic Acid 1.80 mmol/L (0.7-2.0) 01/15/21 02:32 Calcium 8.2 mg/dL (8.4-10.2) L 01/24/21 05:11 Phosphorus 2.70 mg/dL (2.5-4.5) 01/21/21 05:43 Magnesium 2.10 mg/dL (1.7-2.3) 01/22/21 05:44 Iron 61 ug/dL (37-170) 01/22/21 05:44 TIBC 130 mcg/dL (250-450) L 01/22/21 05:44 Ferritin 630.5 ng/mL (10.0-200.0) H 01/15/21 04:51 Total Bilirubin 1.50 mg/dL (0.1-1.2) H 01/17/21 15:12 Direct Bilirubin 0.6 mg/dL (0-0.2) H 01/15/21 02:32 Indirect Bilirubin 1.3 mg/dL 01/15/21 02:32 AST 26 units/L (5-40) 01/17/21 15:12 ALT 32 units/L (7-56) 01/17/21 15:12 Alkaline Phosphatase 72 units/L (35-129) 01/17/21 15:12 Lactate Dehydrogenase 209 units/L (91-180) H 01/22/21 05:44 Troponin T < 0.010 ng/mL (0.00-0.029) 01/15/21 11:41 C-Reactive Protein 0.30 mg/dL (0.00-1.30) 01/15/21 04:51 Total Protein 6.2 g/dL (6.3-8.2) L 01/17/21 15:12 Albumin 3.5 g/dL (3.9-5) L 01/17/21 15:12 Albumin/Globulin Ratio 1.3 % 01/17/21 15:12 Lipase 66 units/L (13-60) H 01/15/21 02:32 Procalcitonin 11.57 ng/mL (<0.15) 01/15/21 04:51 Coronavirus (PCR) Negative (Negative) 01/15/21 08:15 Ramirez/IV: Voiding Method Bedside Commode Active Medications - Current Medications Current Medications: Generic Name Dose Route Start Last Admin Trade Name Freq PRN Reason Stop Dose Admin Acetaminophen 650 mg 01/15/21 06:24 Acetaminophen 325 Mg Tab PO Q6H PRN Pain MILD(1-3)/Fever >100.5/ALMEIDA Benzocaine/Menthol 1 each 01/17/21 14:30 01/17/21 16:19 Benzocaine/Menthol Lozenge MM 1 each Q2HR PRN Administration Sore Throat Dexamethasone 4 mg 01/24/21 23:45 01/25/21 09:12 Dexamethasone 4 Mg/Ml Vial IV 4 mg Q12HR AHSAN Administration Heparin Sodium (Porcine) 5,000 unit 01/15/21 14:00 01/25/21 13:05 Heparin 5,000 Unit/1 Ml Vial SUB-Q 5,000 unit Q8HR AHSAN Administration Potassium Chloride/Dextrose/Sod Cl 20 meq in 1,000 mls @ 75 mls/hr 01/21/21 08:00 01/25/21 13:12 D5w/Ns W/Kcl 20meq IV 75 mls/hr DIRECT AHSAN Administration Magnesium Hydroxide 30 ml 01/15/21 06:24 Magnesium Hydroxide (Mom) Oral Liqd Udc PO Q4H PRN Constipation Midodrine 10 mg 01/21/21 08:00 01/25/21 17:24 Midodrine 5 Mg Tab PO Not Given TID@0800,1200,1600 AHSAN Morphine Sulfate 2 mg 01/15/21 06:24 Morphine 2 Mg/1 Ml Inj IV Q4H PRN Pain, Moderate (4-6) Morphine Sulfate 4 mg 01/15/21 06:24 Morphine 4 Mg/1 Ml Inj IV Q4H PRN Pain , Severe (7-10) Ondansetron HCl 4 mg 01/15/21 06:24 01/23/21 23:45 Ondansetron 4 Mg/2 Ml Inj IV 4 mg Q8H PRN Administration Nausea And Vomiting Pantoprazole Sodium 40 mg 01/21/21 16:00 01/25/21 09:12 Pantoprazole 40 Mg Inj IV 40 mg QDAY AHSAN Administration Sodium Chloride 10 ml 01/15/21 10:00 01/25/21 09:12 Sodium Chloride 0.9% 10 Ml Flush Syringe IV 10 ml BID AHSAN Administration Sodium Chloride 10 ml 01/15/21 06:24 Sodium Chloride 0.9% 10 Ml Flush Syringe IV PRN PRN LINE FLUSH Nutrition/Malnutrition Assess - Dietary Evaluation Nutrition/Malnutrition Findings: Nutrition Notes Start: 01/15/21 09:31 Freq: Status: Active Protocol: Document 01/25/21 15:49 CAMILA (Rec: 01/25/21 15:50 CAMILA [id number]) Nutrition Notes Initial or Follow up Brief Note Current Diet Cl liq Subjective/Other Information Unable to speak with pt today. She is scheduled to D/C home on hospice. No PO intakes documented. Nutrition Intervention Follow-Up By: 01/26/21 Additional Comments F/U: PO tolerance
[2021-01-26] MEDS: HEPARIN 5,000 UNIT/1 ML VIAL SUB-Q SCH ×4 (05:33→21:42)
[2021-01-26] MEDS: dexAMETHasone 4 MG/ML VIAL IV SCH ×2 (09:19→21:28)
[2021-01-26] MEDS: MIDODRINE 5 MG TAB PO SCH ×3 (09:19→15:50)
[2021-01-26] MEDS: PANTOPRAZOLE 40 MG INJ IV SCH (09:19)
--- NOTE | 2021-01-26 09:24 | Progress Note ---
Assessment and Plan - Patient Problems (1) Abnormal finding on EKG Current Visit: Yes Status: Acute Plan to address problem: EKG in the emergency room showed normal sinus rhythm and QT prolongation QT interval has normalized following correction of electrolyte abnormalities. Echocardiogram shows well-preserved left ventricular systolic function, EF 50- 55%. Conservative cardiac management. Subjective Date of service: 01/26/21 Interval history: No cardiac events. Patient is resting in bed and appears comfortable. Objective Vital Signs Temp Pulse Resp BP Pulse Ox 01/26/21 08:45 98.0 F 104 H 16 139/94 97 01/26/21 04:54 98.4 F 01/26/21 04:19 120 H 128/77 100 01/25/21 22:00 144 H 01/25/21 21:00 18 100 01/25/21 20:56 98.6 F 01/25/21 19:51 107 H 114/72 97 01/25/21 15:26 98.0 F 107 H 18 145/85 100 01/25/21 10:00 109 H - Physical Examination General: No Apparent Distress HEENT: Positive: PERRL Neck: Positive: neck supple Cardiac: Positive: Tachycardia Lungs: Positive: Decreased Breath Sounds Neuro: Positive: Grossly Intact, Weakness Extremities: Absent: edema
[2021-01-26] MEDS ORDERED: POTASSIUM CHLORIDE 20 MEQ in D5W/0.9% NACL 1,000 ML IV SCH (11:00)
--- NOTE | 2021-01-26 20:17 | Discharge Summary ---
Providers - Providers Date of Admission: 01/15/21 05:43 Attending physician: ALFONSO DICKINSON 01/15/21 05:08 Consult to Physician [CONS] Urgent Comment: Dr. Polk spoke with Dr. Mckay @ 0538 Consulting Provider: PRASANTH FLOREZ Physician Instructions: Reason For Exam: Prolonged QTc 01/15/21 06:26 Consult to Dietitian/Nutrition [CONS] Routine Physician Instructions: Reason For Exam: Reason for Consult: Diet education 01/15/21 06:55 Consult to Physician [CONS] Routine Comment: Consulting Provider: BALTAZAR SERRANO Physician Instructions: Reason For Exam: PUI 01/18/21 15:01 Consult to Physician [CONS] Routine Comment: Consulting Provider: JAYLYN MCDANIEL Physician Instructions: Reason For Exam: nausea,vomiting,gall stones 01/20/21 12:01 Physical Therapy Evaluation and Treat [CONS] Routine Comment: Reason For Exam: weakness 01/20/21 12:08 Consult to Physician [CONS] Urgent Comment: Consulting Provider: CAMMIE CADENA Physician Instructions: Reason For Exam: carvical cacer mets to lungs 01/20/21 13:22 Consult to Physician [CONS] Routine Comment: cervical cancer with mets to lung Consulting Provider: ERINN GIL Physician Instructions: Reason For Exam: Abnormal HIDA scan, gallstones,cervcal cancer mets 01/22/21 08:33 psychiatry consult [Consult to Mental Health] [CONS] Routine Reason For Exam: Depression 01/25/21 10:39 Consult to Case Management [CONS] Routine Services Needed at Discharge: Other Notified:: 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 She has also been having persistent nausea and vomiting over the past 2 months. Upon arrival of EMS patient's blood pressure was said to be 90s systolic and 70s diastolic patient was said to be tachycardic with heart rate of about 110/min. Patient had a bolus of IV fluid with significant improvement in her blood pressure. She denies any fever or chills, no chest pain or shortness of breath, but has been having about 4-5 episodes of vomiting per day, she has had associated epigastric abdominal discomfort.. She has been taking some Zofran which does not seem to be giving her any relief. Patient denies any sick contacts and no recent travel. She denies any contact with anyone with COVID- 19. She has not been vaccinated against COVID-19. Patient was seen and evaluated in the emergency department. All lab and imaging studies reviewed. Patient underwent Chest x-ray which reveals right upper lobe mass measuring about 5.1 x 4.8 cm otherwise lungs are clear. CT of the abdomen and pelvis reveals cholelithiasis without evidence of acute cholecystitis. Patient found to have symptomatic cholelithiasis as etiology of patient's nausea. Patient also found to have right lung mass consistent with recurrent lung cancer with suspected metastatic disease to the liver. Patient experienced prolonged hospital course. Oncology team consulted. Patient counseled regarding cancer treatment options. Patient seen and evaluated by surgical team and was found to have contracted gallbladder which was not amenable to percutaneous drain placement. Surgical team declined further intervention due to malignancy and any surgical intervention should be undertaken with interdisciplinary approach with possible involvement of surgical oncology team, possible radiation oncology team, oncology team. Patient found to have poor prognosis. Advanced care planning conducted with patient as well as patient family. Patient acknowledges understanding poor prognosis. Patient medically optimized patient subsequently discharged home with home hospice care. Patient instructed to have meeting with family and discuss options. Patient may seek further care as outpatient. Patient seen and evaluated prior to discharge no significant physical exam findings. 35 minutes dedicated to patient discharge and coordination of care. Dis[facility]: [id number] ([facility]) Final Discharge Diagnosis (Prints w/discharge instructions): Metastatic lung cancer. Symptomatic cholelithiasis. Malnutrition - Discharge Diagnoses (1) Lung cancer Status: Acute Qualifiers: Laterality: right (2) Cholelithiasis Status: Acute Qualifiers: Cholelithiasis location: gallbladder Cholecystitis presence: without cholecystitis (3) Malnutrition Status: Acute Qualifiers: Protein-calorie malnutrition severity: moderate (4) Generalized weakness Status: Acute (5) DVT prophylaxis Status: Acute (6) Advance care planning Status: Acute Core Measure Documentation - Palliative Care Palliative Care/ Comfort Measures: Hospice Care - Core Measures Any of the following diagnoses?: none Exam - Constitutional Vitals: Temp Pulse Resp BP Pulse Ox 98.4 F 111 H 20 134/91 98 01/26/21 16:00 01/26/21 16:00 01/26/21 16:00 01/26/21 16:00 01/26/21 16:00 General appearance: Present: cachectic - EENT Eyes: Present: PERRL ENT: hearing intact, clear oral mucosa - Neck Neck: Present: supple, normal ROM - Respiratory Respiratory effort: normal Respiratory: bilateral: CTA - Cardiovascular Heart Sounds: Present: S1 & S2. Absent: rub, click - Extremities Extremities: pulses symmetrical, No edema Peripheral Pulses: within normal limits - Abdominal General gastrointestinal: Present: soft, non-tender, non-distended, normal bowel sounds Female genitourinary: Present: normal - Integumentary Integumentary: Present: clear, warm, dry - Musculoskeletal Musculoskeletal: gait normal, strength equal bilaterally - Psychiatric Psychiatric: appropriate mood/affect, intact judgment & insight - Neurologic Neurologic: CNII-XII intact, moves all extremities Plan Activity: advance as tolerated Diet: advance as tolerated Follow up with: PRIMARY CARE, [Primary Care Provider] - 3-5 Days Prescriptions: LORazepam [Ativan] 1 mg PO BID #60 tab Sennosides/Docusate Sodium [Docusate Sodium-Sennosides Tab] 1 each PO DAILY #14 tablet Morphine Concentrate [MORPHINE Conc 20 MG/ML ORAL LIQ] 10 mg PO Q4HR PRN #30 ml PRN Reason: Pain , Severe (7-10) oxyCODONE /ACETAMINOPHEN [Percocet 5/325] 1 tab PO Q6HR PRN #24 tablet PRN Reason: Pain
[2021-01-26] MEDS: ONDANSETRON 4 MG/2 ML INJ IV PRN (21:27)
[2021-01-27] MEDS: HEPARIN 5,000 UNIT/1 ML VIAL SUB-Q SCH ×2 (06:09→13:20)
--- NOTE | 2021-01-27 09:24 | Progress Note ---
Assessment and Plan - Patient Problems (1) Abnormal finding on EKG Current Visit: Yes Status: Acute Plan to address problem: EKG in the emergency room showed normal sinus rhythm and QT prolongation QT interval has normalized following correction of electrolyte abnormalities. Echocardiogram shows well-preserved left ventricular systolic function, EF 50- 55%. Conservative cardiac management. Subjective Date of service: 01/27/21 Interval history: No interval cardiac changes. Objective Vital Signs Temp Pulse Resp BP BP Pulse Ox 01/27/21 08:37 98.4 F 107 H 18 116/79 96 01/27/21 04:37 98.4 F 121 H 17 112/76 100 01/26/21 23:19 98.4 F 105 H 18 138/89 98 01/26/21 21:00 17 100 01/26/21 20:26 98.3 F 124 H 18 149/103 99 01/26/21 16:00 98.4 F 111 H 20 134/91 98 01/26/21 13:54 97.2 F L 110 H 18 136/82 98 01/26/21 12:48 91 H 17 141/87 97 01/26/21 10:00 103 H - Physical Examination General: No Apparent Distress HEENT: Positive: PERRL Neck: Positive: neck supple Cardiac: Positive: Tachycardia Lungs: Positive: Decreased Breath Sounds Neuro: Positive: Weakness Extremities: Absent: edema - Labs and Meds Comprehensive Metabolic Panel 01/26/21 Range/Units 10:55 Potassium 3.8 (3.6-5.0) mmol/L
--- NOTE | 2021-01-27 12:33 | Progress Note ---
Assessment and Plan - Patient Problems (1) Lung cancer Current Visit: Yes Status: Acute Qualifiers: Laterality: right Plan to address problem: Lung cancer with metastatic disease: Supportive care, oncology team consulted. Recommend outpatient follow-up as per patient family. Discharge planning with home hospice care. (2) Cholelithiasis Current Visit: Yes Status: Acute Qualifiers: Cholelithiasis location: gallbladder Cholecystitis presence: without cholecystitis Plan to address problem: Symptomatic cholelithiasis: Supportive care, advance diet as tolerated. Fatou gical team consulted. No surgical intervention warranted at this time. Interventional radiology consulted however patient gallbladder is contracted and patient is not a candidate for cholecystostomy tube.. (3) Malnutrition Current Visit: Yes Status: Acute Qualifiers: Protein-calorie malnutrition severity: moderate Plan to address problem: Increase protein intake, dietary supplementation (4) Generalized weakness Current Visit: Yes Status: Acute Plan to address problem: Supportive care, IV fluid resuscitation therapy, (5) DVT prophylaxis Current Visit: Yes Status: Acute Plan to address problem: SCD to bilateral lower extremities while in bed, patient is ambulatory (6) Advance care planning Current Visit: Yes Status: Acute Plan to address problem: Disease education conducted, care plan discussed, diagnosis discussed, prognosis discussed. Discussed patient care options with patient as well as patient's son Dave Christensen. Recommend home hospice care. Patient and family acknowledges understanding and agreement with care plan. Patient is full code. +30 minutes. History Interval history: 50 YO Female HD#12 with recurrent lung cancer with metastatic disease, symptomatic cholelithiasis not amenable to percutaneous drain placement. Patient counseled regarding treatment options. Advanced care planning conducted. Patient counseled regarding disease prognosis. Recommend home hospice care at discharge. Patient family may elect to seek further care as outpatient. Patient medically optimized. Case management consulted for as sistance with discharge planning. Discharge planning in a.m. with home hospice care. Hospice care team notified. Hospitalist Physical - Constitutional Vitals: Temp Pulse Resp BP Pulse Ox 98.4 F 107 H 18 116/79 100 01/27/21 08:37 01/27/21 08:37 01/27/21 09:00 01/27/21 08:37 01/27/21 09:00 General appearance: Present: no acute distress, cachectic - EENT Eyes: Present: PERRL ENT: hearing intact - Neck Neck: Present: supple - Respiratory Respiratory effort: normal Respiratory: bilateral: CTA - Cardiovascular Rhythm: regular Heart Sounds: Present: S1 & S2 - Extremities Extremities: no ischemia Peripheral Pulses: within normal limits - Abdominal General gastrointestinal: soft, non-tender, non-distended - Integumentary Integumentary: Present: clear, dry - Psychiatric Psychiatric: appropriate mood/affect, cooperative - Neurologic Neurologic: CNII-XII intact HEART Score - HEART Score Troponin: Troponin T < 0.010 ng/mL (0.00-0.029) 01/15/21 11:41 Results - Labs CBC & Chem 7: 01/24/21 05:11 01/26/21 10:55 Labs: Laboratory Last Values WBC 5.8 K/mm3 (4.5-11.0) 01/24/21 05:11 RBC 3.21 M/mm3 (3.65-5.03) L 01/24/21 05:11 Hgb 10.5 gm/dl (10.1-14.3) 01/24/21 05:11 Hct 31.8 % (30.3-42.9) 01/24/21 05:11 MCV 99 fl (79-97) H 01/24/21 05:11 MCH 33 pg (28-32) H 01/24/21 05:11 MCHC 33 % (30-34) 01/24/21 05:11 RDW 15.2 % (13.2-15.2) 01/24/21 05:11 Plt Count 189 K/mm3 (140-440) 01/24/21 05:11 Lymph % (Auto) 27.3 % (13.4-35.0) 01/15/21 02:32 Bucks % (Auto) 7.1 % (0.0-7.3) 01/15/21 02:32 Eos % (Auto) 0.2 % (0.0-4.3) 01/15/21 02:32 Baso % (Auto) 0.5 % (0.0-1.8) 01/15/21 02:32 Lymph # (Auto) 1.4 K/mm3 (1.2-5.4) 01/15/21 02:32 Bucks # (Auto) 0.4 K/mm3 (0.0-0.8) 01/15/21 02:32 Eos # (Auto) 0.0 K/mm3 (0.0-0.4) 01/15/21 02:32 Baso # (Auto) 0.0 K/mm3 (0.0-0.1) 01/15/21 02:32 Add Manual Diff Complete 01/16/21 02:12 Total Counted 100 01/16/21 02:12 Seg Neutrophils % 64.9 % (40.0-70.0) 01/15/21 02:32 Seg Neuts % (Manual) 77.0 % (40.0-70.0) H 01/16/21 02:12 Band Neutrophils % 1.0 % 01/16/21 02:12 Lymphocytes % (Manual) 15.0 % (13.4-35.0) 01/16/21 02:12 Monocytes % (Manual) 6.0 % (0.0-7.3) 01/16/21 02:12 Basophils % (Manual) 1.0 % (0.0-1.8) 01/16/21 02:12 Nucleated RBC % Not Reportable 01/16/21 02:12 Seg Neutrophils # 3.3 K/mm3 (1.8-7.7) 01/15/21 02:32 Seg Neutrophils # Man 3.5 K/mm3 (1.8-7.7) 01/16/21 02:12 Band Neutrophils # 0.0 K/mm3 01/16/21 02:12 Lymphocytes # (Manual) 0.7 K/mm3 (1.2-5.4) L 01/16/21 02:12 Abs React Lymphs (Man) 0.0 K/mm3 01/16/21 02:12 Monocytes # (Manual) 0.3 K/mm3 (0.0-0.8) 01/16/21 02:12 Eosinophils # (Manual) 0.0 K/mm3 (0.0-0.4) 01/16/21 02:12 Basophils # (Manual) 0.0 K/mm3 (0.0-0.1) 01/16/21 02:12 Metamyelocytes # 0.0 K/mm3 01/16/21 02:12 Myelocytes # 0.0 K/mm3 01/16/21 02:12 Promyelocytes # 0.0 K/mm3 01/16/21 02:12 Blast Cells # 0.0 K/mm3 01/16/21 02:12 WBC Morphology Not Reportable 01/16/21 02:12 Hypersegmented Neuts Not Reportable 01/16/21 02:12 Hyposegmented Neuts Not Reportable 01/16/21 02:12 Hypogranular Neuts Not Reportable 01/16/21 02:12 Smudge Cells Not Reportable 01/16/21 02:12 Toxic Granulation Not Reportable 01/16/21 02:12 Toxic Vacuolation Not Reportable 01/16/21 02:12 Dohle Bodies Not Reportable 01/16/21 02:12 Pelger-Huet Anomaly Not Reportable 01/16/21 02:12 Alonzo Rods Not Reportable 01/16/21 02:12 Platelet Estimate Consistent w auto 01/16/21 02:12 Clumped Platelets Not Reportable 01/16/21 02:12 Plt Clumps, EDTA Not Reportable 01/16/21 02:12 Large Platelets Not Reportable 01/16/21 02:12 Giant Platelets Not Reportable 01/16/21 02:12 Platelet Satelliting Not Reportable 01/16/21 02:12 Plt Morphology Comment Not Reportable 01/16/21 02:12 RBC Morphology Not Reportable 01/16/21 02:12 Dimorphic RBCs Not Reportable 01/16/21 02:12 Polychromasia Not Reportable 01/16/21 02:12 Hypochromasia Not Reportable 01/16/21 02:12 Poikilocytosis Not Reportable 01/16/21 02:12 Anisocytosis 1+ 01/16/21 02:12 Microcytosis Not Reportable 01/16/21 02:12 Macrocytosis Not Reportable 01/16/21 02:12 Spherocytes Not Reportable 01/16/21 02:12 Pappenheimer Bodies Not Reportable 01/16/21 02:12 Sickle Cells Not Reportable 01/16/21 02:12 Target Cells Not Reportable 01/16/21 02:12 Tear Drop Cells Not Reportable 01/16/21 02:12 Ovalocytes Not Reportable 01/16/21 02:12 Helmet Cells Not Reportable 01/16/21 02:12 Bray-Chamberlayne Bodies Not Reportable 01/16/21 02:12 Elwood Rings Not Reportable 01/16/21 02:12 Mumford Cells Not Reportable 01/16/21 02:12 Bite Cells Not Reportable 01/16/21 02:12 Crenated Cell Not Reportable 01/16/21 02:12 Elliptocytes Not Reportable 01/16/21 02:12 Acanthocytes (Spur) Not Reportable 01/16/21 02:12 Rouleaux Not Reportable 01/16/21 02:12 Hemoglobin C Crystals Not Reportable 01/16/21 02:12 Schistocytes Not Reportable 01/16/21 02:12 Malaria parasites Not Reportable 01/16/21 02:12 Calvin Bodies Not Reportable 01/16/21 02:12 Hem Pathologist Commnt No 01/16/21 02:12 PT 16.5 Sec. (12.2-14.9) H 01/16/21 02:12 INR 1.27 (0.87-1.13) H 01/16/21 02:12 APTT 26.4 Sec. (24.2-36.6) 01/15/21 02:32 D-Dimer 1101.34 ng/mlDDU (0-234) H 01/15/21 04:51 Sodium 135 mmol/L (137-145) L 01/24/21 05:11 Potassium 3.8 mmol/L (3.6-5.0) 01/26/21 10:55 Chloride 103.6 mmol/L (98-107) 01/24/21 05:11 Carbon Dioxide 19 mmol/L (22-30) L 01/24/21 05:11 Anion Gap 16 mmol/L 01/24/21 05:11 BUN 1 mg/dL (7-17) L 01/24/21 05:11 Creatinine 0.4 mg/dL (0.6-1.2) L 01/24/21 05:11 Estimated GFR > 60 ml/min 01/24/21 05:11 BUN/Creatinine Ratio 3 % 01/24/21 05:11 Glucose 104 mg/dL (65-100) H 01/24/21 05:11 POC Glucose 111 mg/dL (70-105) H 01/26/21 16:30 Lactic Acid 1.80 mmol/L (0.7-2.0) 01/15/21 02:32 Calcium 8.2 mg/dL (8.4-10.2) L 01/24/21 05:11 Phosphorus 2.70 mg/dL (2.5-4.5) 01/21/21 05:43 Magnesium 2.10 mg/dL (1.7-2.3) 01/22/21 05:44 Iron 61 ug/dL (37-170) 01/22/21 05:44 TIBC 130 mcg/dL (250-450) L 01/22/21 05:44 Ferritin 630.5 ng/mL (10.0-200.0) H 01/15/21 04:51 Total Bilirubin 1.50 mg/dL (0.1-1.2) H 01/17/21 15:12 Direct Bilirubin 0.6 mg/dL (0-0.2) H 01/15/21 02:32 Indirect Bilirubin 1.3 mg/dL 01/15/21 02:32 AST 26 units/L (5-40) 01/17/21 15:12 ALT 32 units/L (7-56) 01/17/21 15:12 Alkaline Phosphatase 72 units/L (35-129) 01/17/21 15:12 Lactate Dehydrogenase 209 units/L (91-180) H 01/22/21 05:44 Troponin T < 0.010 ng/mL (0.00-0.029) 01/15/21 11:41 C-Reactive Protein 0.30 mg/dL (0.00-1.30) 01/15/21 04:51 Total Protein 6.2 g/dL (6.3-8.2) L 01/17/21 15:12 Albumin 3.5 g/dL (3.9-5) L 01/17/21 15:12 Albumin/Globulin Ratio 1.3 % 01/17/21 15:12 Lipase 66 units/L (13-60) H 01/15/21 02:32 Carcinoembryonic Ag 70.1 ng/mL (0.0-2.4) H 01/23/21 04:56 Procalcitonin 11.57 ng/mL (<0.15) 01/15/21 04:51 Coronavirus (PCR) Negative (Negative) 01/15/21 08:15 Ramirez/IV: Voiding Method Bedside Commode Active Medications - Current Medications Current Medications: Generic Name Dose Route Start Last Admin Trade Name Freq PRN Reason Stop Dose Admin Acetaminophen 650 mg 01/15/21 06:24 Acetaminophen 325 Mg Tab PO Q6H PRN Pain MILD(1-3)/Fever >100.5/ALMEIDA Benzocaine/Menthol 1 each 01/17/21 14:30 01/17/21 16:19 Benzocaine/Menthol Lozenge MM 1 each Q2HR PRN Administration Sore Throat Heparin Sodium (Porcine) 5,000 unit 01/15/21 14:00 01/27/21 06:09 Heparin 5,000 Unit/1 Ml Vial SUB-Q Not Given Q8HR AHSAN Magnesium Hydroxide 30 ml 01/15/21 06:24 Magnesium Hydroxide (Mom) Oral Liqd Udc PO Q4H PRN Constipation Morphine Sulfate 2 mg 01/15/21 06:24 Morphine 2 Mg/1 Ml Inj IV Q4H PRN Pain, Moderate (4-6) Morphine Sulfate 4 mg 01/15/21 06:24 Morphine 4 Mg/1 Ml Inj IV Q4H PRN Pain , Severe (7-10) Ondansetron HCl 4 mg 01/15/21 06:24 01/26/21 21:27 Ondansetron 4 Mg/2 Ml Inj IV 4 mg Q8H PRN Administration Nausea And Vomiting Sodium Chloride 10 ml 01/15/21 06:24 Sodium Chloride 0.9% 10 Ml Flush Syringe IV PRN PRN LINE FLUSH Nutrition/Malnutrition Assess - Dietary Evaluation Nutrition/Malnutrition Findings: Nutrition Notes Start: 01/15/21 09:31 Freq: Status: Active Protocol: Document 01/26/21 12:36 (Rec: 01/26/21 12:39 [email or web address]) Nutrition Notes Initial or Follow up Reassessment Other Pertinent Diagnosis hx cervical and lung cancer, mass in lung, generalized weakness Current Diet Cl liq Labs/Tests reviewed Pertinent Medications 20 mEq Kcl in dextrose at 75 ml/hr Height 5 ft 8 in Weight 62.8 kg [place] Body Weight (kg) 63.63 BMI 21.0 Weight Status Appropriate Subjective/Other Information Pt continues with very poor intakes. Pt did drink breakfast this AM or dinner last night. Percent of energy/protein needs met: negligible Burn Absent Trauma Absent Current % PO Negligible Minimum of two criteria Yes Energy Intake (severe) < or equal to 50% Estimated Energy Requirement > or equal to 5 days Interpretation of Weight Loss (severe) >7.5% in 3 months #2 Nutrition Diagnosis Malnutrition Diagnosis Progress(for reassessment Continues documentation) #1 Nutrition Diagnosis Inadequate energy intake As Evidenced by Signs and Symptoms pt not eating/drinking Diagnosis Progress(for reassessment Worsened documentation) Is patient on ventilator? No Is Patient Ambulatory and/or Out of Bed No REE-([facility]-confined to bed) 1548.036 Calculation Used for Recommendations [facility] Additional Notes Protein: (1.2-1.5g/kg) 76-95g Fluid: 1ml/kcal or per MD Nutrition Intervention Change Diet Order: advance as able Nutrition Support: Recommend TPN/PPN if poor intakes Goal #1 Diet advancement Follow-Up By: 01/30/21 Additional Comments F/U: PO tolerance, plan of care
[2021-01-27 20:36] VITALS: BP 111/59
[2021-01-31 08:48] LABS: Hemoglobin A2 Prime SEE SCANNED RESULTS; Hemoglobin Barts SEE SCANNED RESULTS; Hemoglobin E SEE SCANNED RESULTS; Hemoglobin G SEE SCANNED RESULTS; Hemoglobin Lepore SEE SCANNED RESULTS; Hemoglobin O-Arab SEE SCANNED RESULTS; IEF Confirm SEE SCANNED RESULTS; Interpretation SEE SCANNED RESULTS; Sickle Solubility Test SEE SCANNED RESULTS
== END 2021-01-27 23:00 | disposition hospice, home (50) | DRG 445 ==
LOC: ED 01:37 → IMCU 05:43 → 4A 01-16 15:15
PROVIDERS: ADMIT Internal Medicine Geriatric Medicine; ATTEND Internal Medicine
DX: K80.20 Calculus of gallbladder without cholecystitis without obstruction (principal); C34.90 Malignant neoplasm of unspecified part of unspecified bronchus or lung; E44.0 Moderate protein-calorie malnutrition; E87.6 Hypokalemia; I95.9 Hypotension, unspecified; F32.9 Major depressive disorder, single episode, unspecified; Z68.21 Body mass index [BMI] 21.0-21.9, adult; Z20.822 Contact with and (suspected) exposure to COVID-19; Z90.710 Acquired absence of both cervix and uterus; Z85.42 Personal history of malignant neoplasm of other parts of uterus; R62.7 Adult failure to thrive; E83.51 Hypocalcemia; E83.42 Hypomagnesemia; E83.39 Other disorders of phosphorus metabolism
CPT/HCPCS: 36415; 70553; 71045; 71275; 74176; 74177; 76705; 78226; 80048; 80053; 80076; 82140; 82378; 82728; 82947; 82962; 83550; 83615; 83690; 83735; 84100; 84132; 84145; 84484; 85007; 85025; 85027; 85379; 85610; 85730; 86140; 87040; 87086; 93005; 93306; 96374; 99292; G0378; A9537; A9575; C9113; J1100; J1644; J2405; J2765; J3475; J3480; J7030; J7040; J7042; J7120; Q9967; U0003